=== PATIENT | male | born 1955 | race Caucasian/White ===

== ENCOUNTER → 2017-12-10 11:04 | Outpatient (CLI) | payer OTHER, SELFPAY ==
[2017-12-10 12:13] LABS: Absolute Lymphocyte Count 2.06 X10^3/ul (0.83-4.51); Absolute Neutrophil Count 5.6 X10^3/uL (2.0-7.7); Basophil# 0.02 X10^3/uL; Basophil% 0.2 % (0-1); Eosinophil# 0.02 X10^3/uL; Eosinophils% 0.2 % (0-5); Hematocrit 37.5 % (40-54); Hemoglobin 12.1 g/dl (13.0-16.5); Lymphocyte # 2.06 X10^3/ul (4.0); Lymphocyte % 23.6 % (19-41); Mean Corp Hgb Conc 32.3 g/gl (32-36); Mean Corpuscular Hgb 27.7 pg (27.0-32.0); Mean Corpuscular Volume 85.8 fL (80-94); Monocyte# 1.03 X10^3/uL; Monocyte% 11.8 % (0-10); Neutrophil # 5.57 X10^3/uL (2.7-7.7); Neutrophil % 63.7 % (47-70); Platelet Count 135 K/mm3 (150-450); RBC Distribution Width CV 14.4 % (11.6-14.6); Red Blood Count 4.37 M/mm3 (4.6-6.2); White Blood Count 8.7 K/mm3 (4.4-11.0)
[2017-12-10 12:38] LABS: POSITIVE COUNT NO; POSITIVE DIFFERENTIAL NO; POSITIVE MORPHOLOGY NO
[2017-12-10 12:56] LABS: Anion Gap 10 (5-15); BUN 11 mg/dL (7-18); BUN/Creat Ratio 15.3 RATIO (10-20); Calcium,Total 8.4 mg/dL (8.5-10.1); Chloride 102 mmol/L (98-107); Creatinine, Serum 0.72 mg/dL (0.70-1.30); EST Glomerular Filtration Rate 118 mL/min (>60); Est Glom Filt Rate - Afr Amer 143 mL/min (>60); Glucose 107 mg/dL (70-110); Potassium 3.5 mmol/L (3.5-5.1); Sodium Level 139 mmol/L (136-145)
[2017-12-10 16:57] LABS: Ferritin 116 ng/mL (26-388); Iron 47 ug/dL (65-175)
== END ==
PROVIDERS: Family Provider Family Medicine; PCP Family Medicine; Visit Provider Family Medicine
DX: I10 Essential (primary) hypertension (principal); D69.6 Thrombocytopenia, unspecified; D64.9 Anemia, unspecified
CPT/HCPCS: 36415; 80048; 82728; 83540; 85025

== ENCOUNTER → 2017-12-21 08:34 | Outpatient (CLI) | payer OTHER, SELFPAY ==
[2017-12-17 09:13] VITALS: BP 123/83; BMI 22.5
--- NOTE | 2017-12-21 09:00 | RAD_ITS ---
STUDY: X-RAY - ESOPHAGUS (BARIUM SWALLOW) WITH FLUOROSCOPY REASON FOR EXAM: Male, 62 years old. Gastroesophageal reflux. TECHNIQUE: 9 view(s) of the esophagus were obtained following swallowing of barium. FLUOROSCOPY TIME (if supplied): (0:20) minutes/seconds COMPARISON: None. FINDINGS: There is no demonstrated esophageal foreign body. There is no demonstrated stricture or mucosal abnormality. Normal gastroesophageal junction, without a demonstrated hiatal hernia. Normal visualized aortic arch and descending thoracic aorta. Normal visualized pulmonary parenchyma. Normal visualized osseous structures of the thorax. IMPRESSION: Normal plain film x-ray examination (barium swallow) of the esophagus. Electronically Signed: Russel Jean MD at 14:16 EST Tel [phone], Service support , STUDY: AIR-CONTRAST UPPER GI SERIES. REASON FOR EXAM: Male, 62 years old. Gastroesophageal reflux disease. FLUOROSCOPY TIME (if supplied): (0:20) minutes/seconds TECHNIQUE: The patient ingested barium. Multiple images of the esophagus, stomach and duodenum were obtained. COMPARISON: None. FINDINGS: The esophagus unremarkable. There is no evidence of a gastroesophageal reflux. No mass lesion is seen. The stomach and duodenum are unremarkable. There is no evidence of ulceration. No obstruction is present. RAD/Upper GI w/BA Swallow IMPRESSION: Unremarkable examination. Electronically Signed: Russel Jean MD at 14:17 EST Tel [phone], Service support ,
== END ==
PROVIDERS: Family Provider Family Medicine; PCP Family Medicine; Visit Provider Surgery
DX: R11.10 Vomiting, unspecified (principal)
CPT/HCPCS: 74246

== ENCOUNTER 2018-01-07 07:33 | Day surgery (SDC) | payer OTHER, SELFPAY ==
[2017-12-17 09:13] VITALS: BP 123/83; BMI 22.5
--- NOTE | 2018-01-07 | IMM_PTH ---
PATIENT: CHENCHO MCKEON LOC: EN U#:[id number] AGE/SX: 62/M ROOM: RE01/07/[address]: Dr. August Elliott MD : 1955 BED: DIS: 01/07/2018 SPEC #: [id number] RECD: 01/10/18 10:39 STATUS: CRISTINO REDianne #: [id number] MARISSA: 01/07/18 00:[address]: August Elliott DEPT: IMMUNOHISTOCHEMISTRY RECD BY: Effie Tovar ENTERED: 01/10/18 10:40 SP TYPE: IMMUNO OTHR DR: Dr. Mj Jorge MD Tissues: A - Stomach, NOS Procedures: H Pylori (initial) PHYSICIAN & INSTITUTION [place] [id number] SPECIMEN INFORMATION: Tissue Source: A ? Antrum biopsy Clinical Info: Regurgitation, iron deficiency anemia, history colon polyp Specimen Number: [id number] CPT code: 92890 METHODOLOGY: Deparaffinized sections of prefer/formalin-fixed tissue or PAP/DQ stained slides are incubated with monoclonal/polyclonal antibodies/oligonucleotide probes. Localization is made via biotin free immunoperoxidase method. Appropriate controls are performed and reacted as expected. Results on target cell population are indicated in the following table: RESULTS: ANTIBODY / CLONE RESULT Block A H Pylori (polyclonal) negative These tests were developed and their performance characteristics determined by [facility]. They may not have been cleared or approved by the [place]. Food and Drug Administration. The FDA has determined that such clearance or approval is not necessary. INTERPRETATION: A. Antrum, biopsy: Negative for Helicobacter pylori organisms. AM:fabian 01/10/18
[2018-01-07 08:01] VITALS: BP 128/86; PULSE 60; RESP 18; TEMP 36.1; O2SAT 100; BMI 22.3
--- NOTE | 2018-01-07 09:00 | EGD_PTH ---
PATIENT: CHENCHO MCKEON LOC: EN U#:[id number] AGE/SX: 62/M ROOM: RE01/07/[address]: Dr. August Elliott MD : 1955 BED: DIS: 01/07/2018 SPEC #: [id number] RECD: 01/07/18 11:32 STATUS: CRISTINO MAYELIN #: [id number] MARISSA: 01/07/18 09:[address]: August Elliott DEPT: SURGICAL PATHOLOGY RECD BY: Charanjit Lou ENTERED: 01/07/18 12:04 SP TYPE: EGD BIOPSY [facility] DR: Dr. Mj Jorge MD Tissues: A - Gastric mucous membrane B - Descending colon C - Sigmoid colon biopsy D - Rectum, NOS Procedures: Surgery Specimen Level IV HEADER OPERATION: EGD with biopsy, colonoscopy with polypectomy PRE-OP DIAGNOSIS: Regurgitation, iron deficiency anemia, history colon polyp TISSUE SUBMITTED: A. Antrum biopsy for H. Pylori and path, B. Descending colon polyp, C. Proximal sigmoid polyp at 35 cm, D. 20 cm rectum polyp MICROSCOPIC DIAGNOSIS A. Gastric antrum, biopsy: Gastritis. B. Descending colon polyp, biopsy: Fragments of tubular adenoma. C. Proximal sigmoid colon polyp at 35 cm, biopsy: Fragments of tubular adenoma. D. Rectal polyp at 20 cm, biopsy: Fragments of tubular adenoma. AM:fabian 01/10/18 COMMENT A. The results of immunohistochemistry for Helicobacter pylori will be reported separately ([id number]). Case has been reviewed in consultation with Dr. Allen who concurs with the above diagnosis. IDC:SJ MICROSCOPIC DESCRIPTION Slides are reviewed. A. Sections show small collections and groups of plasma cells in the mucosa. Active inflammation is not present. These findings are consistent with mild chronic gastritis. GROSS DESCRIPTION A - Received in fixative is one container labeled with the patient's name and designated antrum biopsy for H. pylori and path. The specimen consists of multiple irregular fragments of light muse soft tissue that in aggregate measure 1 x 0.2 x 0.1 cm. The specimen is totally submitted in one cassette. B - Received in fixative is one container labeled with the patient's name and designated descending colon polyp. The specimen consists of multiple fragments of muse-pink polyp that in aggregate measure 1 x 1.5 x 0.3 cm. The specimen is totally submitted in one cassette. C - Received in fixative is one container labeled with the patient's name and designated proximal sigmoid colon polyp at 35 cm. The specimen consists of two pieces of muse-pink polyp measuring 0.5 x 0.4 x 0.2 cm. The specimen is totally submitted in one cassette. D - Received in fixative is one container labeled with the patient's name and designated rectum polyp. The specimen consists of a muse-pink polyp measuring 0.8 x 0.6 x 0.5 cm. A small pedicle is noted. This is inked black. The entire specimen is submitted in one cassette. / SJ:rg 01/07/18 TC:5 CPT: 28520 x4
[2018-01-07 09:42] VITALS: BP 128/86; BP 99/60; PULSE 51; RESP 16; TEMP 36.1; O2SAT 99
[2018-01-07 09:46] VITALS: BP 128/86; BP 99/63; PULSE 47; RESP 16; O2SAT 100
--- NOTE | 2018-01-07 09:46 | OP.PCM_ITS ---
Problem List (1) Regurgitation Status: Acute (2) Iron deficiency anemia Status: Acute Qualifiers: Iron deficiency anemia type: unspecified iron deficiency Qualified Code(s) : D50.9 - Iron deficiency anemia, unspecified (3) History of colon polyps Status: Acute Report of Operation Date of Procedure: 01/07/18 Pre-Operative Diagnosis: 1. Regurgitation of food. 2. History of large colon polyp. 3. Iron deficiency anemia Post-Operative Diagnosis: 1. Small hiatal hernia. 2. Descending colon polyp. 3. Sigmoid colon polyp. 4. Proximal rectal polyp Surgery/Procedure Performed:: 1. EGD with biopsy. 2. Colonoscopy with snare polypectomy Specimen's removed: 1. Antral biopsy. 2. Descending colon biopsy. 3. Sigmoid colon polyp. 4. Rectosigmoid colon polyp Description of Procedure: The major risks and benefits associated with the procedure were explained to the patient in detail. The patient verbalized understanding and agreement with the same. The patient was then placed in the left lateral decubitus position. IV sedation was started by anesthesia. The endoscope was then advanced under direct visualization over the tongue, into the esophagus , stomach and duodenum. It was slowly withdrawn and the mucosa was carefully evaluated. Duodenal mucosal abnormalities were not visualized. Antegrade and retrograde views of the stomach were normal and did not reveal ulceration. He did have a small hiatal hernia. Gastric folds were normal. A biopsy of the antrum was performed with cold forceps. The scope was then withdrawn through the GE junction and careful examination did not demonstrate any mucosal abnormalities. No evidence of Partida's esophagus was apparent. Careful examination of the remainder of the esophagus was normal. There were no strictures or Schatzki's rings to explain his regurgitation. The scope was then withdrawn from the patient. The patient was then turned for the colonoscopy portion of the procedure. A digital rectal exam was performed. This examination was within normal limits. A well-lubricated colonoscope was then inserted into the rectum and advanced under direct visualization to the level of the cecum. The bowel prep was good. The cecum was identified by both visual and anatomic landmarks. A photograph was taken of the end of the cecum. The scope was then fully withdrawn while examining the color, texture, anatomy and integrity of the mucosa from the cecum to the anal canal. The patient had a wide sessile area of irregular mucosa in the mid descending colon. This was biopsied several times with cold snare. The patient also had a mid sigmoid polyp which was taken with cautery snare entirely and the patient also had a polyp in the rectosigmoid junction that was taken with cautery snare. Upon reaching the rectum the scope was retroflexed to examine the distal rectal vault. The scope was then straightened and was completely retrieved upon exiting the anal canal and the procedure was terminated. The patient was then transferred to the recovery room in stable condition. Recommendations for follow up: Due to the sessile area in the descending colon which was biopsied I would recommend repeat colonoscopy in one year. If this comes back is anything malignant he will need colectomy to resect this area.
[2018-01-07 09:51] VITALS: BP 128/86; BP 97/80; PULSE 47; RESP 16; O2SAT 100
[2018-01-07 09:56] VITALS: BP 115/62; BP 128/86; PULSE 48; RESP 16; TEMP 36.3; O2SAT 98
[2018-01-07 10:07] VITALS: BP 128/86
== END 2018-01-07 10:15 | disposition home or self-care (01) ==
LOC: EN 07:34 → AC 07:35
PROVIDERS: Family Provider Family Medicine; PCP Family Medicine; Visit Provider Surgery
PROC: 0DJD8ZZ Inspection of Lower Intestinal Tract, Via Natural or Artificial Opening Endoscopic (ICD-10-PCS; CPT 45378; principal; 2018-01-07 08:25)
DX: D12.4 Benign neoplasm of descending colon (principal); D12.5 Benign neoplasm of sigmoid colon; D12.7 Benign neoplasm of rectosigmoid junction; K29.70 Gastritis, unspecified, without bleeding; K44.9 Diaphragmatic hernia without obstruction or gangrene; D50.9 Iron deficiency anemia, unspecified; R11.10 Vomiting, unspecified; Z86.010 Personal history of colon polyps; F32.9 Major depressive disorder, single episode, unspecified; K21.9 Gastro-esophageal reflux disease without esophagitis; E78.00 Pure hypercholesterolemia, unspecified; E03.9 Hypothyroidism, unspecified; I10 Essential (primary) hypertension; I25.2 Old myocardial infarction; J98.8 Other specified respiratory disorders; G25.81 Restless legs syndrome; Z87.19 Personal history of other diseases of the digestive system; F12.90 Cannabis use, unspecified, uncomplicated; Z87.891 Personal history of nicotine dependence; Z95.1 Presence of aortocoronary bypass graft; Z79.82 Long term (current) use of aspirin; Z79.899 Other long term (current) drug therapy
CPT/HCPCS: 43239; 45385; 88305; 88342; J7120

== ENCOUNTER 2018-01-26 08:04 | Day surgery (SDC) | payer OTHER, SELFPAY ==
[2018-01-26 08:13] VITALS: BP 154/99; PULSE 66; RESP 18; O2SAT 100; BMI 22.5
--- NOTE | 2018-01-26 08:50 | NURSING ---
esophageal manometry completed. catheter was inserted into l.nare after anesthetized with lidocaine jelly. pt. tolerated procedure well. rn walked pt. out to surgery waiting room upon completion of test.
== END 2018-01-26 12:00 | disposition home or self-care (01) ==
LOC: EN 08:04 → AC 08:05
PROVIDERS: Family Provider Family Medicine; PCP Family Medicine; Visit Provider Surgery
PROC: F00ZJWZ Instrumental Swallowing and Oral Function Assessment using Swallowing Equipment (ICD-10-PCS; CPT 43235; principal; 2018-01-26 07:55)
DX: R11.10 Vomiting, unspecified (principal)
CPT/HCPCS: 91010

== ENCOUNTER → 2018-10-05 10:38 | Outpatient (CLI) | payer OTHER, SELFPAY ==
[2018-10-05 12:00] LABS: Absolute Lymphocyte Count 1.85 X10^3/ul (0.83-4.51); Absolute Neutrophil Count 3.3 X10^3/uL (2.0-7.7); Basophil# 0.01 X10^3/uL; Basophil% 0.2 % (0-1); Hematocrit 39.6 % (40-54); Hemoglobin 12.5 g/dl (13.0-16.5); Lymphocyte # 1.85 X10^3/ul (4.0); Lymphocyte % 30.3 % (19-41); Mean Corp Hgb Conc 31.6 g/gl (32-36); Mean Corpuscular Hgb 26.2 pg (27.0-32.0); Mean Corpuscular Volume 82.8 fL (80-94); Mean Platelet Vol. 12.6 fl (6.2-12.0); Monocyte# 0.93 X10^3/uL; Monocyte% 15.2 % (0-10); Neutrophil # 3.28 X10^3/uL (2.7-7.7); Neutrophil % 53.8 % (47-70); Platelet Count 106 K/mm3 (150-450); RBC Distribution Width CV 15.3 % (11.6-14.6); RBC Distribution Width SD 46.2 fl (35.1-43.9); Red Blood Count 4.78 M/mm3 (4.6-6.2); White Blood Count 6.1 K/mm3 (4.4-11.0)
[2018-10-05 12:01] LABS: POSITIVE COUNT NO; POSITIVE DIFFERENTIAL NO; POSITIVE MORPHOLOGY NO
[2018-10-05 12:25] LABS: Anion Gap 6 (5-15); BUN 14 mg/dL (7-18); Calcium,Total 8.8 mg/dL (8.5-10.1); Chloride 102 mmol/L (98-107); EST Glomerular Filtration Rate 122 mL/min (>60); Est Glom Filt Rate - Afr Amer 147 mL/min (>60); Ferritin 90 ng/mL (26-388); Glucose 86 mg/dL (74-106); Iron 84 ug/dL (65-175); Potassium 4.1 mmol/L (3.5-5.1); Sodium Level 139 mmol/L (136-145); T4 Free Direct 1.06 ng/dL (0.76-1.46); Thyroid Stim Hormone (TSH) 2.22 uIU/mL (0.358-3.74)
--- OUTSIDE RECORDS SUMMARY | 2018-11-30 19:05 | XMS RPT_ITS ---
:1955 Author Organization [place] Support Name Relationship Address Phone ABEBE MCKEON Unavailable [address] + [place] [address] SPENO Unavailable [address] [phone] [place] [address] ABEBE MCKEON Unavailable [address] [phone] [place] [address] SPENO Unavailable [address] [phone] [place] [address] ABEBE MCKEON Unavailable [address] [phone] [place] [address] SPENO Unavailable [address] [phone] [place] [address] ABEBE MCKEON Unavailable [address] [phone] [place] [address] SPENO Unavailable [address] [phone] [place] [address] ABEBE MCKEON Unavailable [address] [phone] [place] [address] SPENO Unavailable [address] [phone] [place] [address] ABEBE MCKEON Unavailable [address] [phone] [place] [address] SPENO Unavailable [address] [phone] [place] [address] ABEBE MCKEON Unavailable [address] [phone] [place] [address] SPENO Unavailable [address] [phone] [place] [address] ABEBE MCKEON Unavailable [address] [phone] [place] [address] SPENO Unavailable [address] [phone] [place] [address] ABEBE MCKEON Unavailable [address] [phone] [place] [address] SPHERION Unavailable [address] + [place] [address] Care Team Providers Name Role Phone Mj Jorge Attending Unavailable Ania, Mj Primary Care Unavailable Calleroy, August Attending Unavailable Mj Jorge Referring Unavailable Ania, Mj Primary Care Unavailable Calabretta, August Attending Unavailable Calabretta, August Referring Unavailable Ania, Mj Primary Care Unavailable Calabretta, August Attending Unavailable Calabretta, August Referring Unavailable Ania, Mj Primary Care Unavailable Calabretta, August Attending Unavailable Calabrnathaniel, August Referring Unavailable Ania, Mj Primary Care Unavailable Calabretta, August Consulting Unavailable Calabrnathaniel, August Attending Unavailable Calabretta, August Referring Unavailable Ania, Mj Primary Care Unavailable Calleroy, August Attending Unavailable Ania, Mj Referring Unavailable Ania, Mj Primary Care Unavailable Calleroy, August Attending Unavailable Ania, Mj Attending Unavailable Ania, Mj Primary Care Unavailable PROBLEMS PROBLEMS DATE TYPE CONDITION / CODE ATTENDING STATUS SOURCE 10/05/2018 Unknown D64.9 - Anemia, Mj Jorge Active [facility] unspecified / Community D64.9(ICD-10) Hospital Repository 10/05/2018 Unknown D69.6 - AniaMj rinaldi Active [place] Thrombocytopenia, Community unspecified / Hospital D69.6(ICD-10) Repository 10/05/2018 Unknown E03.9 - Ania, Mj Active [place] Hypothyroidism, Community unspecified / Hospital E03.9(ICD-10) Repository 10/05/2018 Unknown F41.8 - Other Ania Mj Active [facility] specified anxiety Community disorders / Hospital F41.8(ICD-10) Repository 02/14/2018 Unknown R11.10 - Vomiting, Calabretta, Active [place] unspecified / [place] Community R11.10(ICD-10) Hospital Repository 12/17/2017 Unknown Z86.010 - Personal Calabretta, Active [facility] history of colonic [facility] polyps / Hospital Z86.010(ICD-10) Repository 12/17/2017 Unknown D50.9 - Iron Lexi, Active [place] deficiency anemia, [facility] unspecified / Hospital D50.9(ICD-10) Repository 12/15/2017 Unknown I10 - Essential Mj Jorge Active [place] (primary) [facility] hypertension / Hospital I10(ICD-10) Repository PROCEDURES PROCEDURES No Procedure Records FoundRESULTS RESULTS CBC W/DIFF, AUTOMATED Collected: 10/05/2018 Status: F Source: [place] 10:39 AM [facility] REPOSITORY TYPE CODE TESTS RESULT OUT OF RANGE REFERENCE UNITS LAB L100.1000 4.4-11.0 K/mm3 Normal WBC 6.1 LAB L100.1200 4.6-6.2 M/mm3 Normal RBC 4.78 LAB L100.1300 13.0-16.5 g/dl Low HGB 12.5 LAB L100.1400 40-54 % Low HCT 39.6 LAB L100.1500 80-94 fL Normal MCV 82.8 LAB L100.1600 27.0-32.0 pg Low MCH 26.2 LAB L100.1700 32-36 g/gl Low MCHC 31.6 LAB L100.1810 11.6-14.6 % High RDW CV 15.3 LAB L100.1820 35.1-43.9 fl High RDW SD 46.2 LAB L100.1900 150-450 K/mm3 Low PLT 106 LAB L100.2000 6.2-12.0 fl High MPV 12.6 LAB L100.2100 47-70 % Normal NEUT% 53.8 LAB L100.2200 19-41 % Normal LY% 30.3 LAB L100.2300 0-10 % High MONO% 15.2 LAB L100.2400 0-5 % Normal EO% 0.0 LAB L100.2500 0-1 % Normal BASO% 0.2 LAB L100.2550 0.0-0.9 % Normal IM GRAN % 0.500 Result Comment: IG% - Immature Granulocytes (promyelocytes, myelocytes and metamyelocytes) > 1% indicates that a LEFT SHIFT is Present. LAB L100.2620 2.0-7.7 X10 3/uL Normal Absolute Neut 3.3 LAB L100.2720 0.83-4.51 X10 3/ul Normal Absolute Lymph 1.85 Performed By: #### L100.0100 #### [facility] [address] [place], [place], [id number] BASIC METABOLIC Collected: 10/05/2018 Status: F Source: [place] PROFILE (BMP) 10:39 AM [facility] REPOSITORY TYPE CODE TESTS RESULT OUT OF RANGE REFERENCE UNITS LAB L501.0100 74-106 mg/dL Normal GLU 86 Result Comment: Please note revised GLUCOSE reference range effective 2017. LAB L501.1000 7-18 mg/dL Normal BUN 14 LAB L501.1100 0.70-1.30 mg/dL Normal CREAT,SERUM 0.70 Result Comment: The validity of the calculated GFR AND GFRAA in patients over 70 years has not been determined. Clinical correlation is essential. LAB L501.1110 >60 mL/min Normal EST GFR 122 Result Comment: Non- GFR Calc LAB L501.1115 >60 mL/min Normal EST GFR - AA 147 Result Comment: GFR Calc LAB L501.1300 10-20 RATIO Normal BUN/CRE 20.0 LAB L501.2200 8.5-10.1 mg/dL CA Normal 8.8 LAB L501.5300 136-145 mmol/L NA Normal 139 LAB L501.5600 3.5-5.1 mmol/L K Normal 4.1 LAB L501.5900 98-107 mmol/L CL Normal 102 LAB L501.6100 21.0-32.0 mmol/L Normal CO2 31.0 LAB L501.6200 5-15 Normal GAP 6 Performed By: #### L500.2500, L501.9520, L503.6150, L503.6550, L506.0400 #### [facility] [address] [place], [place], [address] THYROID STIM HORMONE Collected: 10/05/2018 Status: F Source: [place] (TSH) 10:39 AM [facility] REPOSITORY TYPE CODE TESTS RESULT OUT OF RANGE REFERENCE UNITS LAB L501.9520 0.358-3.74 uIU/mL Normal TSH 2.22 Performed By: #### L500.2500, L501.9520, L503.6150, L503.6550, L506.0400 #### [facility] [address] [place], [address] IRON Collected: 10/05/2018 Status: F Source: [place] 10:39 AM [facility] REPOSITORY TYPE CODE TESTS RESULT OUT OF RANGE REFERENCE UNITS LAB L503.6150 65-175 ug/dL Normal IRON 84 Performed By: #### L500.2500, L501.9520, L503.6150, L503.6550, L506.0400 #### [facility] [address] [place], [address] FERRITIN Collected: 10/05/2018 Status: F Source: [place] 10:39 AM [facility] REPOSITORY TYPE CODE TESTS RESULT OUT OF RANGE REFERENCE UNITS LAB L503.6550 26-388 ng/mL Normal FERRITIN 90 Performed By: #### L500.2500, L501.9520, L503.6150, L503.6550, L506.0400 #### [facility] [address] [place], [address] T4 FREE DIRECT Collected: 10/05/2018 Status: F Source: [place] 10:39 AM [facility] REPOSITORY TYPE CODE TESTS RESULT OUT OF RANGE REFERENCE UNITS LAB L506.0400 0.76-1.46 ng/dL Normal T4 FREE 1.06 DIRECT Performed By: #### L500.2500, L501.9520, L503.6150, L503.6550, L506.0400 #### [facility] [address] [place], [address] SURGERY VISIT REPORT Observed: 02/01/2018 Status: F Source: [place] 10:18 AM [facility] REPOSITORY [facility] [address] [place] [address] OFFICE VISIT Date of Service: 01/31/18 MR#: [id number] Acct: [id number] Name: CHENCHO MCKEON Rep #: [id number] : 1955 Provider: August Elliott MD Age/Sex: 62/M [place] [facility] Status: Signed Intake Intake Visit Reasons: discuss manometry results Chief Complaint: MANOMETRY Cistern Room Working Supervisor Required: No Is patient in pain?: No Allergies clopidogrel bisulfate [From Plavix] Allergy (Verified 01/31/18 10:06) Itching Medications Aspirin [Aspirin, Baby] 81 mg PO DAILY@0800 02/25/15 [History Confirmed 01/31/18] Ferrous Sulfate 325 mg PO DAILY@0800 02/25/15 [History Confirmed 01/31/18] Levothyroxine Sodium [Levoxyl] 100 mcg PO DAILY 02/25/15 [History Confirmed 01/31/18] Lisinopril [Zestril] 5 mg PO DAILY 02/25/15 [History Confirmed 01/31/18] Metoprolol Tartrate [Lopressor (Beta Vitaliy)] 25 mg PO BID 02/25/15 [History Confirmed 01/31/18] Omeprazole [Prilosec] 20 mg PO DAILY 02/25/15 [History Confirmed 01/31/18] Simvastatin [Zocor] 40 mg PO QHS 02/25/15 [History Confirmed 01/31/18] PFSH Medical History Anemia (Acute) Depression (Acute) GERD (gastroesophageal reflux disease) (Acute) Hypercholesterolemia (Acute) Hypothyroid (Acute) HTN (hypertension) (Chronic) Surgical History H/O colonoscopy (Acute) H/O esophagogastroduodenoscopy (Acute) History of left inguinal hernia repair (Acute) Family History Father Diabetes Hypertension Heart disease CAD (coronary artery disease) Mother CAD (coronary artery disease) Hypertension Heart disease CVA (cerebral vascular accident) Thyroid disorder Social History Smoking Status: Former smoker alcohol intake: former substance use type: marijuana HPI HPI HPI: CHENCHO MCKEON, is a 62 M who presents to the office today for follow-up for dysphagia. The patient has not had an upper GI and an EGD and manometry. Upper GI and EGD were normal. Manometry revealed weak peristalsis. The patient is unchanged in his symptoms. ROS General General: No weight change or fatigue Cardio Cardiovascular: No murmur or pacemaker Psych Psychiatric: No depression Resp Respiratory: No shortness of breath, No sleep apnea Gastro Gastrointestinal: Yes acid reflux Additional Details: Dysphasia Exam Const General: cooperative Nutritional Appearance: average body habitus Resp Effort AND Inspection: normal respiratory effort Auscultation: clear to auscultation bilaterally Cardio Rate: regular rate Rhythm: regular rhythm Heart Sounds: no murmurs GI Inspection: non-distended Palpation: soft, nontender Assessment AND Plan Problems 1. Regurgitation R11.10 Plan 1. Patient had normal upper GI as well as normal EGD. He did have a sessile polyp in his colon which was unable to be completely removed and came back as a tubular adenoma. I am seeing him back in 3 months for repeat colonoscopy to attempt full removal. 2. The patient had manometry which shows weak peristalsis with small breaks. I am referring him to a dysphagia clinic for a second opinion to see if there are any therapeutic options. I have supplied him with a disc with the report as well as the [facility] file on it. August Elliott MD Pager: [facility] [address], [address] [place] [address] Office: Orders Referrals: Coding Level of Care Code Off vis,est,level 2 Diagnoses Regurgitation R11.10 02/01/18 1018 <Electronically signed by August Elliott MD> Date August Elliott MD Cosigner Signature: Date (if applicable) CC: Mj Jorge OPERATIVE REPORT Observed: 01/07/2018 Status: F Source: [place] 9:46 AM [facility] Medical Records Department [address] [place], [place] [address] [address] Operative Report 01/07/18 0942 MR#: [id number] Acct: [id number] Name: CHENCHO MCKEON Rep #: [id number] : 1955 62 From: August Elliott MD PCP: Mj Jorge Status: REG SDC Y Location: [place] [address] Problem List (1) Regurgitation Status: Acute (2) Iron deficiency anemia Status: Acute Qualifiers: Iron deficiency anemia type: unspecified iron deficiency Qualified Code(s): D50.9 - Iron deficiency anemia, unspecified (3) History of colon polyps Status: Acute Report of Operation Date of Procedure: 01/07/18 Pre-Operative Diagnosis: 1. Regurgitation of food. 2. History of large colon polyp. 3. Iron deficiency anemia Post-Operative Diagnosis: 1. Small hiatal hernia. 2. Descending colon polyp. 3. Sigmoid colon polyp. 4. Proximal rectal polyp Surgery/Procedure Performed:: 1. EGD with biopsy. 2. Colonoscopy with snare polypectomy Specimen's removed: 1. Antral biopsy. 2. Descending colon biopsy. 3. Sigmoid colon polyp. 4. Rectosigmoid colon polyp Description of Procedure: The major risks and benefits associated with the procedure were explained to the patient in detail. The patient verbalized understanding and agreement with the same. The patient was then placed in the left lateral decubitus position. IV sedation was started by anesthesia. The endoscope was then advanced under direct visualization over the tongue, into the esophagus, stomach and duodenum. It was slowly withdrawn and the mucosa was carefully evaluated. Duodenal mucosal abnormalities were not visualized. Antegrade and retrograde views of the stomach were normal and did not reveal ulceration. He did have a small hiatal hernia. Gastric folds were normal. A biopsy of the antrum was performed with cold forceps. The scope was then withdrawn through the GE junction and careful examination did not demonstrate any mucosal abnormalities. No evidence of Partida's esophagus was apparent. Careful examination of the remainder of the esophagus was normal. There were no strictures or Schatzki's rings to explain his regurgitation. The scope was then withdrawn from the patient. The patient was then turned for the colonoscopy portion of the procedure. A digital rectal exam was performed. This examination was within normal limits. A well- lubricated colonoscope was then inserted into the rectum and advanced under direct visualization to the level of the cecum. The bowel prep was good. The cecum was identified by both visual and anatomic landmarks. A photograph was taken of the end of the cecum. The scope was then fully withdrawn while examining the color, texture, anatomy and integrity of the mucosa from the cecum to the anal canal. The patient had a wide sessile area of irregular mucosa in the mid descending colon. This was biopsied several times with cold snare. The patient also had a mid sigmoid polyp which was taken with cautery snare entirely and the patient also had a polyp in the rectosigmoid junction that was taken with cautery snare. Upon reaching the rectum the scope was retroflexed to examine the distal rectal vault. The scope was then straightened and was completely retrieved upon exiting the anal canal and the procedure was terminated. The patient was then transferred to the recovery room in stable condition. Recommendations for follow up: Due to the sessile area in the descending colon which was biopsied I would recommend repeat colonoscopy in one year. If this comes back is anything malignant he will need colectomy to resect this area. 01/07/18 0946 <Electronically signed by August Elliott MD> Date August Elliott MD CC: August Elliott MD; Mj Jorge Signed EGD ([facility]) Observed: 01/07/2018 Status: F Source: [place] 9:00 AM [facility] REPOSITORY Patient: CHENCHO MCKEON : 1955 (62/M) Acct Num: [id number] Phys: August Elliott MD Unit Num: [id number] Loc: EN Specimen: [id number] Received: 01/07/18 1132 Spec Type: EGD BIOPSY TISSUES TISSUES: A. Gastric mucous membrane B. Descending colon C. Sigmoid colon biopsy D. Rectum, NOS COMMENT A. The results of immunohistochemistry for Helicobacter pylori will be reported separately ([id number]). Case has been reviewed in consultation with Dr. Allen who concurs with the above diagnosis. IDC:ROSS GROSS DESCRIPTION A - Received in fixative is one container labeled with the patient's name and designated antrum biopsy for H. pylori and path. The specimen consists of multiple irregular fragments of light muse soft tissue that in aggregate measure 1 x 0.2 x 0.1 cm. The specimen is totally submitted in one cassette. B - Received in fixative is one container labeled with the patient's name and designated descending colon polyp. The specimen consists of multiple fragments of muse-pink polyp that in aggregate measure 1 x 1.5 x 0.3 cm. The specimen is totally submitted in one cassette. C - Received in fixative is one container labeled with the patient's name and designated proximal sigmoid colon polyp at 35 cm. The specimen consists of two pieces of muse-pink polyp measuring 0.5 x 0.4 x 0.2 cm. The specimen is totally submitted in one cassette. D - Received in fixative is one container labeled with the patient's name and designated rectum polyp. The specimen consists of a muse- pink polyp measuring 0.8 x 0.6 x 0.5 cm. A small pedicle is noted. This is inked black. The entire specimen is submitted in one cassette. / SJ:fabian 01/07/18 TC:5 CPT: 18019 x4 HEADER OPERATION: EGD with biopsy, colonoscopy with polypectomy PRE-OP DIAGNOSIS: Regurgitation, iron deficiency anemia, history colon polyp TISSUE SUBMITTED: A. Antrum biopsy for H. Pylori and path, B. Descending colon polyp, C. Proximal sigmoid polyp at 35 cm, D. 20 cm rectum polyp MICROSCOPIC DESCRIPTION Slides are reviewed. A. Sections show small collections and groups of plasma cells in the mucosa. Active inflammation is not present. These findings are consistent with mild chronic gastritis. MICROSCOPIC DIAGNOSIS A. Gastric antrum, biopsy: Gastritis. B. Descending colon polyp, biopsy: Fragments of tubular adenoma. C. Proximal sigmoid colon polyp at 35 cm, biopsy: Fragments of tubular adenoma. D. Rectal polyp at 20 cm, biopsy: Fragments of tubular adenoma. AM:fabian 01/10/18 Signed Juan Ramon Bee 01/10/18 <signature on file> Performed By: #### PEGD #### [facility] [place] [address], [address] IMMUNOHISTOCHEMISTRY Observed: 01/07/2018 Status: F Source: [place] 12:00 AM [facility] REPOSITORY Patient: CHENCHO MCKEON : 1955 (62/M) Acct Num: [id number] Phys: Lexi BOONE,August Unit Num: [id number] Loc: EN Specimen: [id number] Received: 01/10/18 - 1039 Spec Type: IMMUNO TISSUES TISSUES: A. Stomach, NOS SPECIMEN INFORMATION: Tissue Source: A Antrum biopsy Clinical Info: Regurgitation, iron deficiency anemia, history colon polyp Specimen Number: [id number] CPT code: 92038 METHODOLOGY: Deparaffinized sections of prefer/formalin-fixed tissue or PAP/DQ stained slides are incubated with monoclonal/polyclonal antibodies/oligonucleotide probes. Localization is made via biotin free immunoperoxidase method. Appropriate controls are performed and reacted as expected. Results on target cell population are indicated in the following table: RESULTS: ANTIBODY / CLONE RESULT Block A H Pylori (polyclonal) negative These tests were developed and their performance characteristics determined by [facility]. They may not have been cleared or approved by the U.S. Food and Drug Administration. The FDA has determined that such clearance or approval is not necessary. INTERPRETATION: A. Antrum, biopsy: Negative for Helicobacter pylori organisms. AM:fabian 01/10/18 PHYSICIAN AND INSTITUTION [place] [phone] Signed Juan Ramon [facility] 01/10/18 <signature on file> Performed By: #### PIMM #### [facility] [address] [place] [address]. [place], [place], [address] UPPER GI W/BA Observed: 12/21/2017 Status: F Source: [place] SWALLOW 8:36 AM [facility] REPOSITORY [facility] Imaging Services [address] [place] [address] Upper GI w/BA Swallow MR#: [id number] Acct: [id number] Name: CHENCHO MCKEON Rep #: [id number] : 1955 M 62 From: Russel Jean MD PCP: Mj Jorge Status: REG CLI Study: Upper GI w/BA Swallow Date of Exam: 12/21/17 Exam# [id number] Ordering Dr: August Elliott MD STUDY: X-RAY - ESOPHAGUS (BARIUM SWALLOW) WITH FLUOROSCOPY REASON FOR EXAM: Male, 62 years old. Gastroesophageal reflux. TECHNIQUE: 9 view(s) of the esophagus were obtained following swallowing of barium. FLUOROSCOPY TIME (if supplied): (0:20) minutes/seconds COMPARISON: None. FINDINGS: There is no demonstrated esophageal foreign body. There is no demonstrated stricture or mucosal abnormality. Normal gastroesophageal junction, without a demonstrated hiatal hernia. Normal visualized aortic arch and descending thoracic aorta. Normal visualized pulmonary parenchyma. Normal visualized osseous structures of the thorax. IMPRESSION: Normal plain film x-ray examination (barium swallow) of the esophagus. Electronically Signed: Russel Jean MD at 14:16 EST Tel [phone], Service support , STUDY: AIR-CONTRAST UPPER GI SERIES. REASON FOR EXAM: Male, 62 years old. Gastroesophageal reflux disease. FLUOROSCOPY TIME (if supplied): (0:20) minutes/seconds TECHNIQUE: The patient ingested barium. Multiple images of the esophagus, stomach and duodenum were obtained. COMPARISON: None. FINDINGS: The esophagus unremarkable. There is no evidence of a gastroesophageal reflux. No mass lesion is seen. The stomach and duodenum are unremarkable. There is no evidence of ulceration. No obstruction is present. RAD/Upper GI w/BA Swallow IMPRESSION: Unremarkable examination. Electronically Signed: Russel Jean MD at 14:17 EST Tel [phone], Service support , CC: August Elliott MD; Mj Jorge Incident Response Consultant: Signed SURGERY VISIT REPORT Observed: 12/17/2017 Status: F Source: [place] 9:34 AM [facility] REPOSITORY [facility] [address] [place] [address] OFFICE VISIT Date of Service: 12/17/17 MR#: [id number] Acct: [id number] Name: CHENCHO MCKEON Rep #: [id number] : 1955 Provider: August Elliott MD Age/Sex: 62/M Location: [facility] Status: Signed Intake Vital Signs12/17/17 Height 5 ft 8 in 12/17/17 Weight: 148 lb 12/17/17 Body Mass Index (BMI) 22.5 Intake Visit Reasons: anemia, severe reflux, needs egd/cscope Cistern Room Working Supervisor Required: No Is patient in pain?: No Allergies clopidogrel bisulfate [From Plavix] Allergy (Verified 12/17/17 09:13) Itching Medications Aspirin [Aspirin, Baby] 81 mg PO DAILY@0800 02/25/15 [History Confirmed 12/17/17] Famotidine [Pepcid] 40 mg PO DAILY 02/25/15 [History Confirmed 12/17/17] Ferrous Sulfate 325 mg PO DAILY@0800 02/25/15 [History Confirmed 12/17/17] Levothyroxine Sodium [Levoxyl] 100 mcg PO DAILY 02/25/15 [History Confirmed 12/17/17] Lisinopril [Zestril] 5 mg PO DAILY 02/25/15 [History Confirmed 12/17/17] Metoprolol Tartrate [Lopressor (Beta Vitaliy)] 25 mg PO BID 02/25/15 [History Confirmed 12/17/17] Omeprazole [Prilosec] 20 mg PO DAILY 02/25/15 [History Confirmed 12/17/17] Simvastatin [Zocor] 40 mg PO QHS 02/25/15 [History Confirmed 12/17/17] Triamcinolone 0.025% Cream [Kenalog] 1 applic TOPICAL BID 02/25/15 [History Confirmed 12/17/17] [facility] Medical History Anemia (Acute) Depression (Acute) GERD (gastroesophageal reflux disease) (Acute) Hypercholesterolemia (Acute) Hypothyroid (Acute) HTN (hypertension) (Chronic) Surgical History H/O colonoscopy (Acute) H/O esophagogastroduodenoscopy (Acute) History of left inguinal hernia repair (Acute) Family History Father Diabetes Hypertension Heart disease CAD (coronary artery disease) Mother CAD (coronary artery disease) Hypertension Heart disease CVA (cerebral vascular accident) Thyroid disorder Social History Smoking Status: Former smoker alcohol intake: former substance use type: marijuana HPI HPI HPI: CHENCHO MCKEON, is a 62 M who presents to the office today for anemia. The patient has low iron and is anemic. He reports that he sometimes sees blood in his stool and he coughed up blood once and he thinks he sees blood in his urine. He also reports that he vomits daily. He also reports that he regurgitates undigested food. He had an EGD and colonoscopy in [address] Martinez. At that time EGD was normal and the colonoscopy yielded a 1 cm tubular adenoma at the rectosigmoid junction. Patient has not experienced any abdominal pain. He has no pain with defecation. He does take daily aspirin. ROS General General: Yes fatigue Cardio Cardiovascular: Yes heart disease, high blood pressure, heart attack and heart stent; no murmur, pacemaker, atrial fibrillation, palpitations, shortness of breat with exertion or chest pain Resp Respiratory: Yes shortness of breath, No sleep apnea, Yes cough, No COPD, No asthma, No emphysema, No wheezing Gastro Gastrointestinal: No abdominal pain, Yes nausea or vomiting, No diarrhea, Yes constipation, Yes blood in stool, Yes acid reflux, No hemorrhoids, Yes ulcers, No gallbladder problem, No black,tarry stools Tejinder Hematologic: Yes blood thinners, Yes anemia Exam Const General: cooperative, healthy appearing, comfortable Orientation: alert, oriented x3 Resp Effort AND Inspection: normal respiratory effort Auscultation: clear to auscultation bilaterally Cardio Rate: regular rate Rhythm: regular rhythm Heart Sounds: no murmurs GI Inspection: normal to inspection, non-distended Palpation: soft, nontender Assessment AND Plan 1. Iron deficiency anemia, unspecified iron deficiency anemia type D50.9 Plan 1. The patient is having iron deficiency anemia. I will perform an EGD for him. He does take daily aspirin he has a history of ulcer disease. He also reports she is vomiting daily. 2. History of colon polyps Z86.010 Plan 1. The patient had a tubular adenoma which was over 1 cm in 2015. He is due for colonoscopy 3 years after that. That would be this year. I will perform a colonoscopy at the same time as the EGD. 2. I explained endoscopy in detail to the patient. I explained the risks including but not limited to stroke or heart attack with anesthesia, perforation of the GI tract, bleeding, infection. I explained that any of these could necessitate further emergency surgery. The patient understands and all questions were answered sufficiently. The patient wishes to proceed with procedure. Orders Orders: 3. Regurgitation R11.10 Plan 1. Patient also reports that he is regurgitating undigested food. He reports that this happens when he clears his throat. There is a possibility that the patient has a Zenker's diverticulum. I will also order an upper GI with barium swallow before I do an EGD. August Elliott MD Pager: [facility] [address], [address] [address] Office: Orders Orders: Plan Detail Other Orders Orders: Coding Level of Care Code Off vis,new,level 3 Diagnoses Iron deficiency anemia, unspecified iron deficiency anemia type D50.9 Anemia type: iron deficiency Iron deficiency anemia type: unspecified iron deficiency History of colon polyps Z86.010 Regurgitation R11.10 12/17/17 0934 <Electronically signed by August Elliott MD> Date August Elliott MD Cosigner Signature: Date (if applicable) CC: Mj Jorge CBC W/DIFF, AUTOMATED Collected: 12/10/2017 Status: F Source: FRANK 11:09 AM [facility] REPOSITORY TYPE CODE TESTS RESULT OUT OF RANGE REFERENCE UNITS LAB L100.1000 4.4-11.0 K/mm3 Normal WBC 8.7 LAB L100.1200 4.6-6.2 M/mm3 Low RBC 4.37 LAB L100.1300 13.0-16.5 g/dl Low HGB 12.1 LAB L100.1400 40-54 % Low HCT 37.5 LAB L100.1500 80-94 fL Normal MCV 85.8 LAB L100.1600 27.0-32.0 pg Normal MCH 27.7 LAB L100.1700 32-36 g/gl Normal MCHC 32.3 LAB L100.1810 11.6-14.6 % Normal RDW CV 14.4 LAB L100.1820 35.1-43.9 fl High RDW SD 44.0 LAB L100.1900 150-450 K/mm3 Low PLT 135 LAB L100.2000 6.2-12.0 fl Normal MPV 12.0 LAB L100.2100 47-70 % Normal NEUT% 63.7 LAB L100.2200 19-41 % Normal LY% 23.6 LAB L100.2300 0-10 % High MONO% 11.8 LAB L100.2400 0-5 % Normal EO% 0.2 LAB L100.2500 0-1 % Normal BASO% 0.2 LAB L100.2550 0.0-0.9 % Normal IM GRAN % 0.500 Result Comment: IG% - Immature Granulocytes (promyelocytes, myelocytes and metamyelocytes) > 1% indicates that a LEFT SHIFT is Present. LAB L100.2620 2.0-7.7 X10 3/uL Normal Absolute Neut 5.6 LAB L100.2720 0.83-4.51 X10 3/ul Normal Absolute Lymph 2.06 Performed By: #### L100.0100 #### [facility] [address] [place], [address] BASIC METABOLIC Collected: 12/10/2017 Status: F Source: FRANK PROFILE (BMP) 11:09 AM [facility] REPOSITORY TYPE CODE TESTS RESULT OUT OF RANGE REFERENCE UNITS LAB L501.0100 70-110 mg/dL Normal GLU 107 LAB L501.1000 7-18 mg/dL Normal BUN 11 LAB L501.1100 0.70-1.30 mg/dL Normal 0.72 CREAT,SERUM Result Comment: The validity of the calculated GFR AND GFRAA in patients over 70 years has not been determined. Clinical correlation is essential. LAB L501.1110 >60 mL/min Normal EST GFR 118 Result Comment: Non- GFR Calc LAB L501.1115 >60 mL/min Normal EST GFR - AA 143 Result Comment: GFR Calc LAB L501.1300 10-20 RATIO Normal BUN/CRE 15.3 LAB L501.2200 8.5-10.1 mg/dL Low CA 8.4 LAB L501.5300 136-145 mmol/L NA Normal 139 LAB L501.5600 3.5-5.1 mmol/L K Normal 3.5 LAB L501.5900 98-107 mmol/L CL Normal 102 LAB L501.6100 21.0-32.0 mmol/L Normal CO2 27.0 LAB L501.6200 5-15 Normal GAP 10 Performed By: #### L500.2500, L503.6150, L503.6550 #### [facility] [address] [facility]. [facility] [id number] IRON Collected: 12/10/2017 Status: F Source: ALAMOGORDO 11:09 AM [facility] REPOSITORY TYPE CODE TESTS RESULT OUT OF RANGE REFERENCE UNITS LAB L503.6150 65-175 ug/dL Low IRON 47 Performed By: #### L500.2500, L503.6150, L503.6550 #### [facility] [address] [facility] [address] FERRITIN Collected: 12/10/2017 Status: F Source: [place] 11:09 AM [facility] REPOSITORY TYPE CODE TESTS RESULT OUT OF RANGE REFERENCE UNITS LAB L503.6550 26-388 ng/mL Normal FERRITIN 116 Performed By: #### L500.2500, L503.6150, L503.6550 #### [facility] [address] [facility]. [facility] [address] ALLERGIES ALLERGIES DATE TYPE / CODE NAME / CODE REACTION SEVERITY SOURCE 01/31/2018 Drug clopidogrel Itching Unknown [place] Allergy/416 bisulfate/[id number] [facility] [id number]([facility](RXNORM) [facility]) Repository ENCOUNTERS ENCOUNTERS ADMIT/DISCHARGE ACCOUNT ADMITTING ENCOUNTER LOCATION SOURCE NUMBER CLASS 10/05/2018 [id number] Ambulatory [place] 6 [facility] ing:BFHLAB Repository 01/31/2018/ [id number] Ambulatory BMSBuilding:B [place] 8 9 [place] Repository 01/26/2018/ [id number] Ambulatory [place] 8 0 [facility] ing:ENRoom: Repository AC11 01/26/2018 [id number] Ambulatory BMSBuilding:B [place] 4 MS.CF.[facility] Repository 01/07/2018/ [id number] Ambulatory [place] 8 2 [facility] ing:EN Repository 01/07/2018 [id number] Ambulatory BMSBuilding:B [place] 7 [place].CF.[facility] Repository 12/21/2017 [id number] Ambulatory [place] Frank 3 [facility] ing:RAD Repository 12/17/2017/ [id number] Ambulatory BMSBuilding:B [place] 8 6 [place].[facility] Repository 12/10/2017 [id number] Ambulatory [place] 4 [facility] ing:BFHLAB Repository PAYERS PAYERS ENCOUNTER GUARANTOR PAYER SUBSCRIBER SOURCE 10/05/2018 CHENCHO A Primary CHENCHO A [place] [id number] Insurance[facility] Number: [id number] [facility] [address] [id number] Repository [address]Kss: 234) Date:3840-21-61OC [phone] (GY) [place] [address]VZ: 10/05/2018 Secondary NOT GIVENUNK Frank Insurance:SELF PAY [facility] Number: Effective Repository Date:2018-10-05 01/31/2018 CHENCHO A Primary CHENCHO A [place] [id number] Insurance:SUMMA GARTINDOB: [facility] CAREPolicy Number: [id number] [id number] Repository [address]Tys: (234) Date:3746-21-04QY [phone] (HP) [place] [address]CU: 01/31/2018 Secondary NOT GIVENUNK Frank Insurance:SELF PAY [facility] Number: Effective Repository Date:2018-01-31 01/26/2018 CHENCHO A Primary CHENCHO A [place] [id number] Insurance:SUMMA GARTINDOB[facility] Number: [id number] [id number] Repository [address]Ont: (234) Date:4758-40-15JS [phone] (HP) [place] [address]MC: 01/26/2018 Secondary NOT GIVENUNK Frank Insurance:SELF PAY [facility] Number: Effective Repository Date:2018-01-07 01/26/2018 CHENCHO A Primary CHENCHO A [place] [id number] Insurance:SUMMA GARTINDOB: [facility] Number: [id number] [id number] Repository [address]Gvs: (234) Date:4842-61-82YD [phone] (HP) [place] [address]PS: 01/26/2018 Secondary NOT GIVENUNK [place] Insurance:SELF PAY [facility] Number: Effective Repository Date:2018-01-26 01/07/2018 CHENCHO A Primary CHENCHO A [place] [id number] Insurance:SUMMA GARTINDOB: [facility] Number: [id number] [id number] Repository [address]Hzm: (234) Date:4913-15-90OY [phone] (HP) [address], [place] [address]VB: 01/07/2018 Secondary NOT GIVENUNK [place] Insurance:SELF PAY [facility] Number: Effective Repository Date:2017-12-17 01/07/2018 CHENCHO Gallagher Primary CHENCHO [id number] Insurance:SUMMA GARTINDOB: [facility] CAREPolicy Number: [id number] [id number] Repository [address]Dut: (234) Date:8772-71-82OU [phone] (HP) [address] [place] [address]AG: 01/07/2018 Secondary NOT GIVENUNK Frank Insurance:SELF PAY [facility] Effective Repository Date:2018-01-07 12/21/2017 CHENCHO LUGO4 Primary CHENCHO Marie [facility] Insurance:SUMMA GARTINDOB: Community [address] [place] [address] CAREPolicy Number: [id number] Hospital [address]Nzr: [id number] Repository Date:0478-31-91AL [address] (HP) [address] [address]IV: 12/21/2017 Secondary NOT GIVENUNK Frank Insurance:SELF PAY [facility] Number: Effective Repository Date:2017-12-17 12/17/2017 CHENCHO [id number] Primary CHENCHOMAT Marie [facility] Insurance:SUMMA GARTINDOB: Community [address] [place] [address] CAREPolicy Number: [id number] Hospital [address]Fti: [id number] Repository Date:7350-70-87WY [address]OX (HP) [address], [place] [address]YW: 12/17/2017 Secondary NOT GIVENUNK Frank Insurance:SELF PAY [facility] Number: Effective Repository Date:2017-12-13 12/10/2017 CHENCHO [id number] Primary CHENCHO Marie [facility] Insurance:CROW CABALLERO: [address] Number: [id number] Hospital [address]Hmc: [id number] Repository Date:8845-76-09MR BOX (JF) [address] [address]PV: 12/10/2017 [facility]SELF PAY [facility] Number: Effective Repository Date:2017-12-10
== END ==
PROVIDERS: Family Provider Family Medicine; PCP Family Medicine; Visit Provider Family Medicine
DX: D64.9 Anemia, unspecified (principal); D69.6 Thrombocytopenia, unspecified; E03.9 Hypothyroidism, unspecified; F41.8 Other specified anxiety disorders
CPT/HCPCS: 36415; 80048; 82728; 83540; 84439; 84443; 85025

== ENCOUNTER → 2019-03-29 | Outpatient (CLI) | payer OTHER, SELFPAY ==
[2019-03-29 12:43] LABS: Absolute Lymphocyte Count 1.83 X10^3/ul (0.83-4.51); Basophil# 0.01 X10^3/uL; Basophil% 0.2 % (0-1); Eosinophil# 0.01 X10^3/uL; Eosinophils% 0.2 % (0-5); Hematocrit 39.4 % (40-54); Hemoglobin 12.4 g/dl (13.0-16.5); Lymphocyte # 1.83 X10^3/ul (4.0); Lymphocyte % 45.2 % (19-41); Mean Corp Hgb Conc 31.5 g/gl (32-36); Mean Corpuscular Hgb 25.4 pg (27.0-32.0); Mean Corpuscular Volume 80.7 fL (80-94); Mean Platelet Vol. 13.2 fl (6.2-12.0); Monocyte# 1.18 X10^3/uL; Monocyte% 29.1 % (0-10); Neutrophil # 0.98 X10^3/uL (2.7-7.7); Neutrophil % 24.3 % (47-70); Platelet Count 101 K/mm3 (150-450); RBC Distribution Width CV 15.3 % (11.6-14.6); Red Blood Count 4.88 M/mm3 (4.6-6.2); White Blood Count 4.1 K/mm3 (4.4-11.0)
[2019-03-29 12:50] LABS: Differential Indicated SCAN CRITERIA MET; POSITIVE COUNT NO; POSITIVE DIFFERENTIAL YES; POSITIVE MORPHOLOGY NO
[2019-03-29 13:20] LABS: Platelet Estimate ADEQUATE (ADEQ); Red Cell Morphology NORM C+C NORMAL (NORM C&C)
== END | disposition home or self-care (01) ==
LOC: LAB.FUTURE 11:39
PROVIDERS: Family Provider Family Medicine; PCP Family Medicine; Visit Provider Family Medicine
DX: D69.6 Thrombocytopenia, unspecified (principal)
CPT/HCPCS: 36415; 85025

== ENCOUNTER → 2019-04-04 | Outpatient (CLI) | payer OTHER, SELFPAY ==
[2019-04-04 12:46] LABS: Absolute Lymphocyte Count 1.71 X10^3/ul (0.83-4.51); Basophil# 0.01 X10^3/uL; Basophil% 0.3 % (0-1); Eosinophil# 0.01 X10^3/uL; Eosinophils% 0.3 % (0-5); Hematocrit 41.1 % (40-54); Hemoglobin 13.1 g/dl (13.0-16.5); Lymphocyte # 1.71 X10^3/ul (4.0); Lymphocyte % 43.2 % (19-41); Mean Corp Hgb Conc 31.9 g/gl (32-36); Mean Corpuscular Hgb 26.1 pg (27.0-32.0); Mean Corpuscular Volume 81.9 fL (80-94); Monocyte# 1.18 X10^3/uL; Monocyte% 29.8 % (0-10); Neutrophil # 1.03 X10^3/uL (2.7-7.7); Neutrophil % 25.9 % (47-70); Platelet Count 86 K/mm3 (150-450); RBC Distribution Width CV 15.5 % (11.6-14.6); RBC Distribution Width SD 45.9 fl (35.1-43.9); Red Blood Count 5.02 M/mm3 (4.6-6.2)
[2019-04-04 12:48] LABS: Differential Indicated SCAN CRITERIA MET; POSITIVE COUNT NO; POSITIVE DIFFERENTIAL NO; POSITIVE MORPHOLOGY YES
[2019-04-04 12:55] LABS: Vitamin B12 669 pg/mL (211-911)
[2019-04-04 13:05] LABS: ALB/GLOB Ratio 0.9 RATIO (0.9-2.4); AST(SGOT) 26 U/L (15-37); Alanine Aminotransfer ALT/SGPT 23 U/L (16-61); Albumin, Serum 3.5 g/dL (3.2-5.0); Alkaline Phosphatase 115 U/L (45-117); Anion Gap 9 (5-15); BUN 6 mg/dL (7-18); BUN/Creat Ratio 7.9 RATIO (10-20); Calcium,Total 8.4 mg/dL (8.5-10.1); Chloride 104 mmol/L (98-107); Creatinine, Serum 0.76 mg/dL (0.70-1.30); EST Glomerular Filtration Rate 111 mL/min (>60); Est Glom Filt Rate - Afr Amer 134 mL/min (>60); Ferritin 76 ng/mL (26-388); Globulin 4.1 g/dL (2.2-4.2); Glucose 110 mg/dL (74-106); Iron 52 ug/dL (65-175); Potassium 4.3 mmol/L (3.5-5.1); Protein, Total 7.6 g/dL (6.4-8.2); Sodium Level 141 mmol/L (136-145); Thyroid Stim Hormone (TSH) 0.48 uIU/mL (0.358-3.74)
== END | disposition home or self-care (01) ==
LOC: LAB.FUTURE 10:02
PROVIDERS: Family Provider Family Medicine; PCP Family Medicine; Visit Provider Family Medicine
DX: D69.6 Thrombocytopenia, unspecified (principal); E03.9 Hypothyroidism, unspecified; D64.9 Anemia, unspecified; I10 Essential (primary) hypertension
CPT/HCPCS: 36415; 80053; 82607; 82728; 82746; 83540; 84443; 85025

== ENCOUNTER → 2019-04-25 | Outpatient (CLI) | payer OTHER, SELFPAY ==
[2019-04-13 11:13] VITALS: BMI 22.1
[2019-04-25] VITALS (10 sets, daily range): BP systolic 105–140; BP diastolic 53–79; PULSE 46–53; RESP 14–22; TEMP 36.4; O2SAT 95–100; BMI 22.8
--- NOTE | 2019-04-25 | BMB_PTH ---
PATIENT: CHENCHO MCKEON LOC: [place] U#:[id number] AGE/SX: 63/M ROOM: RE04/25/[address]: Dr. Yeny Doe MD : 1955 BED: DIS: 04/25/2019 SPEC #: [id number] RECD: 04/25/19 09:59 STATUS: CRISTINO MAYELIN #: [id number] MARISSA: 04/25/19 00:[address]: Yeny Doe DEPT: BONE MARROW RECD BY: Charanjit Lou ENTERED: 04/25/19 10:00 SP TYPE: BMB KARL DR: Dr. Mj Jorge MD Tissues: A - Bone marrow, NOS B - Bone marrow, NOS C - Bone marrow, NOS Procedures: Decalcification bone/plaque Bone Marrow Aspiration Bone Marrow Core Biopsy Iron Stain Bone Marrow HEADER OPERATION: Bone marrow biopsy and aspiration PRE-OP DIAGNOSIS: Thrombocytopenia TISSUE SUBMITTED: A - Core, B - Clot, C - Smears, and send outs (flow, cytogenetics and FISH MDS) BONE MARROW DIAGNOSIS Left hip bone marrow biopsy, clot section and aspirate smears: Hypercellular bone marrow with trilineage hematopoiesis with maturation, mild left shift and adequate megakaryocytes. Adequae marrow storage iron - 2-3+, no ring sideroblasts identified. Peripheral blood - moderate thrombocytopenia and mild normocytic anemia. Flow cytometry study from [facility] shows left-shifted granulopoiesis with 2% myeloblasts with an aberrant phenotype. The complete report is viewable in patient's EMR. Cytogenetic and MDS FISH panel studies are pending. FA:fabian 05/01/19 COMMENT Clinical correlation with pending cytogenetic and MDS Fish panel studies is suggested. Case has been reviewed in consultation with Dr. Lafleur who concurs with the above diagnosis. IDC:CE BONE MARROW STUDY Slides are reviewed. CBC DATE: 04/25/19 WBC 5.2; RBC 4.6; HGB 11.9; HCT 17.8; MCV 81.3; MCH 25.6, MCHC 31.5, RDW 15.1; PLTS 94 SEGS 28.2%; LYMPHS 39.7%; MONOS 30.9%; EOS 0.2%; BASOS 0.4% PERIPHERAL SMEAR: Submitted. RBC: Mild normocytic, hypochromic anemia. WBC: Unremarkable. The WBC count is compatible to as reported above. PLTS: Decreased. BONE MARROW ASPIRATE DIFFERENTIAL: 200 cell count. Blasts % (normal 0-2): 2 Promyelocytes % (normal 1-5): 2 Myelocytes and metamyelocytes % (normal 17-41): 30 Bands and Segs % (normal 15-32): 22 Eos % (normal 1-6): 2 Basos % (normal 0-1): 0 Monocytes % (normal 0-4): 4 Erythroid Precursors % (normal 17-35):17 Lymphocytes % (normal 7-13): 10 Plasma Cells % (normal 0-2): 1 ASPIRATE FINDINGS: Site: Left hip Hypercellular M/E ratio: 4.0 (Normal 1.5-4.0) Megakaryocytes: Present and a few hypolobated forms are identified. Erythropoiesis: Normoblastic. Few rare forms with irregular nuclear contours are noted. Granulopoiesis: Progressive with mild left shift. Comment: No significant dysplastic changes are identified. CORE BIOPSY FINDINGS: Site: Left hip Adequacy: Adequate Cellularity: 90% M/E ratio: Mild WBC left shift. Megakaryocytes: Present and adequate in number. Bony trabeculae: Unremarkable. Granulomas: Absent. Lymphoid aggregate: Absent. Atypical infiltrate: Absent. Comment: ASPIRATE CLOT FINDINGS: Site: Left hip Marrow particles: A few present. Cellularity: 60-70% M/E ratio: Mild granulocytic hyperplasia. Megakaryocytes: Present and adequate in number. Granulomas: Absent. Lymphoid aggregates: A few present. Atypical infiltrates: Absent. Comment: Small lymphoid aggregate are identified and are favored to be reactive. SPECIAL STAINS WITH MATCHED CONTROLS: Iron: 3+. No ring sideroblasts identified. Reticulin: No significant increase in reticulin fibers. PAS: Highlights myeloid cells and megakaryocytes. BONE MARROW GROSS A - Received is a container labeled with the patient's name and designated left hip. The specimen consists of one elongated piece of bone measuring 1 cm in length and 0.2 cm in diameter. The specimen is totally submitted in one cassette after decalcification. B - Received labeled with the patient's name and designated left hip is a specimen that consists of multiple blood clots. The specimen is entirely submitted for cell block preparation. C - Also received are 16 unstained and 1 peripheral stained slides. The unstained slides are submitted for appropriate staining. Also received is one green top tube which is sent to our reference lab for flow, cytogenetics and FISH MDS. / SJ:rg 04/25/19 TC:4 CPT: 90443, 82809, 06940 x2, 79274 x3, 96378 ADDENDUM ADDENDUM ADDENDUM ADDENDUM ADDENDUM ADDENDUM ADDENDUM ADDENDUM ADDENDUM ADDENDUM ADDENDUM 05/18/2019 12:09 ADDENDUM 05/18/2019 12:09 ADDENDUM 05/18/2019 12:09 ADDENDUM 05/18/2019 12:09 ADDENDUM 05/18/2019 12:09 REPORTS FROM [facility] CYTOGENETIC RESULT: 46,XY[20] INTERPRETATION: Normal male karyotype was observed in twenty metaphases analyzed. MDS FISH PANEL FISH RESULT: Normal MDS Panel Please see complete report in e-chart or EMR for further details
--- NOTE | 2019-04-25 08:04 | CT_ITS ---
PROCEDURE: CT GUIDED BONE marrow biopsy of the posterior left iliac bone. DATE: April 25, 2019. INDICATION: Male, 63 years old. Thrombocytopenia. PHYSICIAN: Russel Jean M.D. RADIATION DOSAGE (If Supplied By Facility): CTDIvol = ( 15.5 ) mGy, DLP = ( 309.19 ) mGycm PROCEDURE: The risks, benefits, and alternatives to the procedure were explained to the patient. The specific risk of hemorrhage requiring further treatment or intervention was detailed and accepted. Follow-up instructions were discussed with the patient as well. Written informed consent was obtained. The patient was brought into the CT suite and placed in the prone position. . An appropriate entry site was identified. The overlying skin was prepped and draped in the usual sterile fashion. 1% lidocaine was administered subcutaneously for local anesthesia. Conscious sedation was performed. The patient received 2 mg of Versed and 50 mcg of fentanyl intravenously. Conscious sedation was started at 9:05 AM and terminated at 9:29 AM. The patient was independently monitored by the department nurse. Under CT guidance, bone marrow aspirates and bone marrow biopsy were performed. The specimens were then placed in the appropriate fluid in transported to the laboratory for analysis. Hemostasis was obtained. The patient tolerated the procedure well without immediate complications. CT/Biopsy/Inj or Needle Placement IMPRESSION: Successful CT guided bone marrow biopsy and bone marrow aspirate of the posterior left iliac bone, as described above. The patient tolerated the procedure well. Electronically Signed: Russel Jean, at 10:26 EDT , Service support ,
[2019-04-25 08:20] LABS: Absolute Lymphocyte Count 2.07 X10^3/ul (0.83-4.51); Absolute Neutrophil Count 1.5 X10^3/uL (2.0-7.7); Basophil# 0.02 X10^3/uL; Basophil% 0.4 % (0-1); Eosinophil# 0.01 X10^3/uL; Eosinophils% 0.2 % (0-5); Hematocrit 37.8 % (40-54); Hemoglobin 11.9 g/dl (13.0-16.5); Lymphocyte # 2.07 X10^3/ul (4.0); Lymphocyte % 39.7 % (19-41); Mean Corp Hgb Conc 31.5 g/gl (32-36); Mean Corpuscular Hgb 25.6 pg (27.0-32.0); Mean Corpuscular Volume 81.3 fL (80-94); Monocyte# 1.61 X10^3/uL; Monocyte% 30.9 % (0-10); Neutrophil # 1.47 X10^3/uL (2.7-7.7); Neutrophil % 28.2 % (47-70); Platelet Count 94 K/mm3 (150-450); RBC Distribution Width CV 15.1 % (11.6-14.6); RBC Distribution Width SD 44.1 fl (35.1-43.9); Red Blood Count 4.65 M/mm3 (4.6-6.2); White Blood Count 5.2 K/mm3 (4.4-11.0)
[2019-04-25 08:21] LABS: Differential Indicated SCAN CRITERIA MET; POSITIVE COUNT NO; POSITIVE DIFFERENTIAL YES; POSITIVE MORPHOLOGY YES
[2019-04-25 08:24] LABS: International Normalized Ratio 1.1; Partial Thromboplast Time 33.7 Seconds (24.1-36.2); Prothrombin Time (Protime)PT. 14.1 SECONDS (11.7-14.9)
[2019-04-25] MEDS: Midazolam 2 MG/2 ML Syringe IV (09:05)
[2019-04-25] MEDS: fentaNYL 100 MCG/2 ML Ampul IV (09:07)
== END | disposition home or self-care (01) ==
PROVIDERS: Family Provider Family Medicine; PCP Family Medicine; Referring Provider Internal Medicine Hematology & Oncology; Visit Provider Internal Medicine Hematology & Oncology
DX: D69.6 Thrombocytopenia, unspecified (principal)
CPT/HCPCS: 38221; 36415; 77012; 85025; 85610; 85730; 88305; 88311; 88313; 99156; 99157; J7040; A4216

== ENCOUNTER → 2019-05-16 | Outpatient (CLI) | payer OTHER, SELFPAY ==
[2019-04-13 11:13] VITALS: BMI 22.1
[2019-05-16 13:29] VITALS: BMI 21.8
--- NOTE | 2019-05-16 13:58 | CT_ITS ---
STUDY: LOW DOSE CT LUNG CANCER SCREENING REASON FOR EXAM: Male, 63 years old. 80 pack-year history of smoking. RADIATION DOSAGE (If Supplied By Facility): CTDIvol = ( 2.01 ) mGy, DLP = ( 72.48 ) mGycm TECHNIQUE: No contrast was administered. Low dose technique was utilized (average mAS-38 and kVp 120). 1.25 mm axial source images with a slice interval of 1.25-mm were reconstructed in lung windows. 2.5 mm axial source images with a slice interval of 2.5-mm were reconstructed in lung windows. 5.0 mm axial source images with a slice interval of 5.0-mm were reconstructed in soft tissue windows. Nodule measured using lung windows on PACS and/or independent workstation with automated measurement of minimum and maximum diameter. Nodule measurement reported as average diameter rounded to the nearest whole number. Growth is defined as an increase ins size of greater than 1.5 mm. COMPARISON: None. NODULES: No suspicious nodules are seen. Emphysema: Hyperinflation. Mild degree of emphysematous changes. Findings suggestive of scarring at the lung apices with bullous formation. Endobronchial lesion: Aorta: Atherosclerotic calcification of the aortic arch. Coronary arteries: Coronary artery calcification. Heart: Prior CABG. Mediastinal nodes: Several mediastinal lymph nodes measuring less than 1.5 cm. Other chest and abdominal findings: CT/Low Dose CT Lung Screening IMPRESSION: Lung-RADS category 2 - Continue annual screening with LDCT in 12 months. IMPORTANT NOTES FOR USE: ACR Lung-RADS Version 1.0 Assessment Categories Release Date: March 05, 2014 Category: Coded 0-4 bases on nodule(s) with highest degree of suspicion. Negative screen is defined as categories 1 and 2; a positive screen is defined as categories 3 and 4. Category 3 and 4A nodules that are unchanged on interval CT should be coded as category 2, and individuals returned to screening in 12 months. Category 4X: Category 3 or 4 nodules with additional imaging findings that increase the suspicion of lung cancer, such as spiculation, GGN that doubles in size in 1 year, enlarged lymph notes, etc. Category Modifiers: S (significant finding unrelated to lung cancer) and C (prior history of treated lung cancer) may be added to the 0-4 Lung-RADS Electronically Signed: Russel Jean, at 14:49 EDT , Service support ,
== END | disposition home or self-care (01) ==
LOC: CT 13:57
PROVIDERS: Family Provider Family Medicine; PCP Family Medicine; Referring Provider Nurse Practitioner Family; Visit Provider Nurse Practitioner Family
DX: Z12.2 Encounter for screening for malignant neoplasm of respiratory organs (principal); Z87.891 Personal history of nicotine dependence
CPT/HCPCS: G0297

== ENCOUNTER → 2020-06-04 | Outpatient (CLI) | payer OTHER, SELFPAY ==
[2019-11-22 11:02] VITALS: BMI 22.1
[2020-06-04 12:35] VITALS: BMI 21.7
--- NOTE | 2020-06-04 12:59 | CT_ITS ---
STUDY: LOW DOSE CT LUNG CANCER SCREENING REASON FOR EXAM: Male, 64 years old. TOBACCO USE 1 1/2 PPD X 45 YRS. QUIT IN 2007 RADIATION DOSAGE (If Supplied By Facility): CTDIvol = ( 1.70 ) mGy, DLP = ( 57.85 ) mGycm TECHNIQUE: No contrast was administered. Low dose technique was utilized (average mAS-38 and kVp 120). 1.25 mm axial source images with a slice interval of 1.25-mm were reconstructed in lung windows. 2.5 mm axial source images with a slice interval of 2.5-mm were reconstructed in lung windows. 5.0 mm axial source images with a slice interval of 5.0-mm were reconstructed in soft tissue windows. Nodule measured using lung windows on PACS and/or independent workstation with automated measurement of minimum and maximum diameter. Nodule measurement reported as average diameter rounded to the nearest whole number. Growth is defined as an increase ins size of greater than 1.5 mm. COMPARISON: Comparison is made with prior examination dated 05-16-19. NODULES: No suspicious nodules are seen. Emphysema: Diffuse emphysematous changes. Stable scarring at the lung apices. Endobronchial lesion: None Aorta: Atherosclerotic calcification of the aortic arch and descending thoracic aorta. Coronary arteries: Prior CABG. Coronary artery calcification. Heart: Not enlarged Pulmonary artery: Unremarkable. Mediastinal nodes: Small mediastinal lymph nodes. Other chest and abdominal findings: Degenerative changes of the dorsal spine. CT/Low Dose CT Lung Screening IMPRESSION: Lung-RADS category 2 - Continue annual screening with LDCT in 12 months. IMPORTANT NOTES FOR USE: ACR Lung-RADS Version 1.0 Assessment Categories Release Date: March 05, 2014 Category: Coded 0-4 bases on nodule(s) with highest degree of suspicion. Negative screen is defined as categories 1 and 2; a positive screen is defined as categories 3 and 4. Category 3 and 4A nodules that are unchanged on interval CT should be coded as category 2, and individuals returned to screening in 12 months. Category 4X: Category 3 or 4 nodules with additional imaging findings that increase the suspicion of lung cancer, such as spiculation, GGN that doubles in size in 1 year, enlarged lymph notes, etc. Category Modifiers: S (significant finding unrelated to lung cancer) and C (prior history of treated lung cancer) may be added to the 0-4 Lung-RADS Electronically Signed: Russel Jean, at 13:55 EDT , Service support ,
== END | disposition home or self-care (01) ==
LOC: CT 12:59
PROVIDERS: PCP Family Medicine; Referring Provider Nurse Practitioner Family; Visit Provider Nurse Practitioner Family
DX: Z87.891 Personal history of nicotine dependence (principal); Z12.2 Encounter for screening for malignant neoplasm of respiratory organs
CPT/HCPCS: G0297

== ENCOUNTER → 2020-12-16 09:22 | Outpatient (CLI) | payer OTHER, SELFPAY ==
[2020-06-04 12:35] VITALS: BMI 21.7
[2020-12-16 12:10] LABS: Absolute Lymphocyte Count 1.84 X10^3/uL (0.83-4.51); Absolute Neutrophil Count 1.5 X10^3/uL (2.0-7.7); Basophil# 0.03 X10^3/uL; Basophil% 0.7 % (0-1); Hematocrit 42.9 % (40-54); Hemoglobin 13.4 g/dL (13.0-16.5); Lymphocyte # 1.84 X10^3/ul (4.0); Lymphocyte % 42.1 % (19-41); Mean Corp Hgb Conc 31.2 g/dL (32-36); Mean Corpuscular Hgb 26.4 pg (27.0-32.0); Mean Corpuscular Volume 84.4 fL (80-94); Monocyte# 0.84 X10^3/uL; Monocyte% 19.2 % (0-10); NRBC Flagged by Analyzer 0 % (0-5); Neutrophil # 1.51 X10^3/uL (2.7-7.7); Neutrophil % 34.6 % (47-70); POSITIVE COUNT YES; POSITIVE MORPHOLOGY YES; Platelet Count 61 K/mm3 (150-450); RBC Distribution Width CV 15.6 % (11.6-14.6); RBC Distribution Width SD 47.4 fl (35.1-43.9); Red Blood Count 5.08 M/mm3 (4.6-6.2); White Blood Count 4.4 K/mm3 (4.4-11.0)
[2020-12-16 12:20] LABS: Differential Indicated SCAN CRITERIA MET
[2020-12-16 12:28] LABS: ALB/GLOB Ratio 0.8 RATIO (0.9-2.4); AST(SGOT) 26 U/L (15-37); Alanine Aminotransfer ALT/SGPT 32 U/L (16-61); Albumin, Serum 3.6 g/dL (3.2-5.0); Alkaline Phosphatase 103 U/L (45-117); Anion Gap 3 (5-15); BUN 10 mg/dL (7-18); BUN/Creat Ratio 11.8 RATIO (10-20); Calcium,Total 8.9 mg/dL (8.5-10.1); Chloride 100 mmol/L (98-107); Cholesterol 150 mg/dL (200); Creatinine, Serum 0.85 mg/dL (0.70-1.30); EST Glomerular Filtration Rate 97 mL/min (>60); Est Glom Filt Rate - Afr Amer 117 mL/min (>60); Globulin 4.3 g/dL (2.2-4.2); Glucose 104 mg/dL (74-106); High Density Lipoprotein 36 mg/dL; Potassium 4.6 mmol/L (3.5-5.1); Protein, Total 7.9 g/dL (6.4-8.2); Sodium Level 135 mmol/L (136-145); T4 Free Direct 0.74 ng/dL (0.76-1.46); Thyroid Stim Hormone (TSH) 0.77 uIU/mL (0.358-3.74); Triglycerides 128 mg/dL; Very Low Density Lipoprotein 26 mg/dL (5-40)
[2020-12-16 12:40] LABS: Reactive Lymphocyte 1+
== END ==
PROVIDERS: PCP Family Medicine; Visit Provider Family Medicine
DX: I10 Essential (primary) hypertension (principal); D46.20 Refractory anemia with excess of blasts, unspecified; E03.9 Hypothyroidism, unspecified; E78.5 Hyperlipidemia, unspecified
CPT/HCPCS: 36415; 80053; 80061; 84439; 84443; 85025

== ENCOUNTER → 2021-08-26 13:07 | Outpatient (CLI) | payer OTHER, SELFPAY ==
--- NOTE | 2021-08-26 13:10 | CT_ITS ---
STUDY: LOW DOSE CT LUNG CANCER SCREENING REASON FOR EXAM: Male, 66 years old. Screening for lung cancer screening -- 40 pk yr; asymptomatic; former smoker RADIATION DOSAGE (If Supplied By Facility): CTDIvol = ( 1.59 ) mGy, DLP = ( 54.40 ) mGycm TECHNIQUE: No contrast was administered. Low dose technique was utilized (average mAS-38 and kVp 120). 1.25 mm axial source images with a slice interval of 1.25-mm were reconstructed in lung windows. 2.5 mm axial source images with a slice interval of 2.5-mm were reconstructed in lung windows. 5.0 mm axial source images with a slice interval of 5.0-mm were reconstructed in soft tissue windows. Nodule measured using lung windows on PACS and/or independent workstation with automated measurement of minimum and maximum diameter. Nodule measurement reported as average diameter rounded to the nearest whole number. Growth is defined as an increase ins size of greater than 1.5 mm. COMPARISON: Comparison is made with prior study dated 06/04/2020. NODULES: Stable scarring at the lung apices. Emphysema: Hyperinflation. Stable emphysematous changes. Endobronchial lesion: None Aorta: Atherosclerotic plaque formation of the ascending and descending thoracic aorta. Coronary arteries: Coronary artery calcification. Prior CABG Heart: Prior CABG Mediastinal nodes: Small mediastinal lymph nodes. Other chest and abdominal findings: CT/Low Dose CT Lung Screening IMPRESSION: Lung-RADS category 2 - Continue annual screening with LDCT in 12 months. IMPORTANT NOTES FOR USE: ACR Lung-RADS Version 1.1 Assessment Categories Release Date: 2018 Category: Coded 0-4 bases on nodule(s) with highest degree of suspicion. Negative screen is defined as categories 1 and 2; a positive screen is defined as categories 3 and 4. Category 3 and 4A nodules that are unchanged on interval CT should be coded as category 2, and individuals returned to screening in 12 months. Category 4X: Category 3 or 4 nodules with additional imaging findings that increase the suspicion of lung cancer, such as spiculation, GGN that doubles in size in 1 year, enlarged lymph notes, etc. Category Modifiers: S (significant finding unrelated to lung cancer) Electronically Signed: Russel Jean MD at 14:05 EDT , Service support ,
== END ==
PROVIDERS: PCP Family Medicine; Referring Provider Nurse Practitioner Family; Visit Provider Nurse Practitioner Family
DX: Z87.891 Personal history of nicotine dependence (principal); Z12.2 Encounter for screening for malignant neoplasm of respiratory organs
CPT/HCPCS: 71271

== ENCOUNTER → 2022-05-13 | Outpatient (CLI) | payer OTHER, SELFPAY ==
--- NOTE | 2022-05-13 09:50 | RAD_ITS ---
EXAM: XR LEFT SHOULDER COMPLETE, 2 OR MORE VIEWS CLINICAL INDICATION: SHOULDER PAIN TECHNIQUE: Two or more views of the left shoulder. This report was created using [employer] report generation technology. COMPARISON: CT of the liver is a mural FINDINGS: BONES/JOINTS: Unremarkable. No acute fracture. No subluxation. Normal alignment. Preservation of the joint space. No sclerotic or destructive changes observed. SOFT TISSUES: Unremarkable. No soft tissue swelling or gas. No radiopaque foreign body. RAD/Shoulder min 2 Views IMPRESSION: Intact left shoulder. Electronically Signed: Hipolito Camarena MD at 12:20 EDT ,
--- NOTE | 2022-05-13 09:50 | RAD_ITS ---
EXAM: XR CERVICAL SPINE, 4 OR 5 VIEWS CLINICAL INDICATION: NECK/SHOULDER PAIN TECHNIQUE: Frontal, lateral and bilateral oblique views of the cervical spine. This report was created using [employer] report generation technology. COMPARISON: None. FINDINGS: VERTEBRAE: Preserved vertebral body height. No acute fracture. No spondylolisthesis. Preservation of the normal cervical lordosis. No significant facet arthropathy. DISC SPACES: Disc space narrowing and bony spurring noted at the C4-5 and C5-6 levels associated with mild narrowing of the neural foramina. SOFT TISSUES: Unremarkable. No prevertebral soft tissue widening. LUNG APICES: Clear. RAD/Cerv Spine 4 or 5 Views IMPRESSION: Moderate C4-5 and C5-6 spondylosis. Electronically Signed: Hipolito Camarena MD at 12:30 EDT ,
== END | disposition home or self-care (01) ==
LOC: RAD 09:47
PROVIDERS: PCP Family Medicine; Referring Provider Family Medicine; Visit Provider Family Medicine
DX: M47.812 Spondylosis without myelopathy or radiculopathy, cervical region (principal); M25.512 Pain in left shoulder
CPT/HCPCS: 72050; 73030

== ENCOUNTER → 2022-07-31 | Outpatient (CLI) | payer OTHER, SELFPAY ==
--- NOTE | 2022-07-31 13:40 | RAD_ITS ---
STUDY: X-RAY - RIGHT KNEE REASON FOR EXAM: Male, 66 years old. His knee on something. PAIN TECHNIQUE: 4 view(s) of the knee. COMPARISON: None. FINDINGS: Normal visualized distal femur. Normal visualized proximal tibia and fibula. Normal proximal tibiofibular articulation. There is mild degenerative arthrosis of the medial femorotibial compartment. There is mild degenerative arthrosis of the lateral femorotibial compartment. There is mild degenerative arthrosis of the patellofemoral articulation. There are surgical clips projecting over the soft tissues posterior and medial to the knee. There is subcutaneous edema anterior to the patellar tendon. RAD/Knee 4 or More Views IMPRESSION: No acute osseous injury. Degenerative changes. Subcutaneous edema ventral to the patellar tendon. Electronically Signed: Brooklyn Correa MD at 14:00 EDT ,
== END | disposition home or self-care (01) ==
LOC: RAD 13:33
PROVIDERS: PCP Family Medicine; Referring Provider Family Medicine; Visit Provider Family Medicine
DX: M25.561 Pain in right knee (principal)
CPT/HCPCS: 73564

== ENCOUNTER → 2022-09-22 | Outpatient (CLI) | payer OTHER, SELFPAY ==
--- NOTE | 2022-09-22 15:30 | CT_ITS ---
STUDY: LOW DOSE CT LUNG CANCER SCREENING REASON FOR EXAM: Male, 67 years old. Former smoker. Approx 50 pack-year history. Stopped 5 years ago. RADIATION DOSAGE (If Supplied By Facility): CTDIvol = ( 2.01 ) mGy, DLP = ( 70.72 ) mGycm TECHNIQUE: No contrast was administered. Low dose technique was utilized (average mAS-38 and kVp 120). 1.25 mm axial source images with a slice interval of 1.25-mm were reconstructed in lung windows. 2.5 mm axial source images with a slice interval of 2.5-mm were reconstructed in lung windows. 5.0 mm axial source images with a slice interval of 5.0-mm were reconstructed in soft tissue windows. COMPARISON: August 26, 2021. NODULES: Total lung nodules (excluding granulomas): 0 Emphysema: Diffuse emphysematous changes of the lungs. There is apical pleural scarring and minimal scarring versus dependent changes in the lateral right lung base. Endobronchial lesion: None Aorta: Mild atherosclerotic tortuosity without aneurysm. CORONARY ARTERIES: Evidence of prior CABG procedure. Heart: Normal Pulmonary artery: Normal Mediastinal nodes: Stable mediastinal lymphadenopathy. Other chest and abdominal findings: Evidence of median sternotomy. CT/Low Dose CT Lung Screening IMPRESSION: Lung-RADS category 1 - Continue annual screening with LDCT in 12 months. IMPORTANT NOTES FOR USE: ACR Lung-RADS Version 1.1 Assessment Categories Release Date: 2018 Category: Coded 0-4 bases on nodule(s) with highest degree of suspicion. Negative screen is defined as categories 1 and 2; a positive screen is defined as categories 3 and 4. Category 3 and 4A nodules that are unchanged on interval CT should be coded as category 2, and individuals returned to screening in 12 months. Category 4X: Category 3 or 4 nodules with additional imaging findings that increase the suspicion of lung cancer, such as spiculation, GGN that doubles in size in 1 year, enlarged lymph notes, etc. Category Modifiers: S (significant finding unrelated to lung cancer) Electronically Signed: Morgan Bird DO at 17:16 EST Reading Location ID and State: [facility] / [place] Tel [phone], Service support ,
== END | disposition home or self-care (01) ==
LOC: CT 15:29
PROVIDERS: PCP Family Medicine; Referring Provider Nurse Practitioner Family; Visit Provider Nurse Practitioner Family
DX: Z87.891 Personal history of nicotine dependence (principal)
CPT/HCPCS: 71271

== ENCOUNTER 2023-03-12 16:18 | Emergency (ER) | payer OTHER, SELFPAY ==
[2023-03-12] VITALS (7 sets, daily range): BP systolic 111–130; BP diastolic 7–83; PULSE 68–76; RESP 12–18; TEMP 35.8–36.8; O2SAT 96–99; BMI 19.3
--- NOTE | 2023-03-12 16:50 | EKG12_ITS ---
Test Reason : Blood Pressure : / mmHG Vent. Rate : 067 BPM Atrial Rate : 067 BPM P-R Int : 162 ms QRS Dur : 094 ms QT Int : 446 ms P-R-T Axes : 067 071 074 degrees QTc Int : 471 ms Normal sinus rhythm Normal ECG Confirmed by CHIDI BOONE, MADAN ([id number]), fashion editor DENY WOOD ([id number]) on 03/15/2023 2:41:00 PM Referred By: Confirmed By:CHAUNCEY MURILLO MD
--- NOTE | 2023-03-12 17:32 | EX.ED.DYSGE1 ---
HPI <Dr. Akash Kendrick MD - Last Filed: 03/13/23 15:31> History of Present Illness Chief Complaint: Abn Labs Informant: patient Narrative Narrative: Patient presents with episodes of kind of a feeling of dizziness and overall weakness. He states he was changing the oil in his truck and when he was getting up and down he just felt weak and worn out. He thinks he needs blood or platelets or something. Of note, it is extremely difficult getting the history from this patient. It takes over 15 to 20 minutes of questioning before I find out he got out of the hospital 3 days ago from an approximately 3-week stay. He has a diagnosis of acute myelogenous leukemia. He had multiple transfusions of what sounds like both blood products and platelets up at [facility]. He is told he needs a bone marrow donor but his insurance will not cover that. He just states he feels kind of weak and feels like he needs some blood product. He denies any bleeding. I do note that he has a few petechiae on his left forearm and his left cortez but I do not see them anywhere else. He states he thinks those are new after working on his truck. He is not on any blood thinners. Its not clear if he is taking aspirin or not. I did review his other med list that is listed in the sounds as though it may be accurate. I have tried but cannot get access to the recent [facility] records. I have no recent blood work. I do have a bone marrow from several years ago. But this did not show leukemia at the time. Patient also states that he will not stay in the hospital. He has people coming from [place] and he has to go home. [facility] <Dr. Akash Kendrick MD - Last Filed: 03/13/23 15:31> [facility] Medical History AML (acute myeloid leukemia) Anemia Anxiety and depression Bilateral shoulder pain Cervical myofascial strain Cervical radiculopathy Depression Dysphagia Encounter for screening for malignant neoplasm of lung in former smoker who quit in past 15 years with 30 pack year history or greater GERD (gastroesophageal reflux disease) History of heart attack History of tobacco use HTN (hypertension) Hypercholesterolemia Hypothyroid Home Medications aspirin 81 mg chewable tablet 81 mg PO DAILY@0800 04/20/15 [History Last Taken 12/31/17] levothyroxine 100 mcg tablet 100 mcg PO DAILY 02/25/15 [History Last Taken 01/07/18 06:00] lisinopril 5 mg tablet 5 mg PO DAILY 02/25/15 [History Last Taken 01/07/18 06:00] metoprolol tartrate 25 mg tablet 25 mg PO DAILY 02/25/15 [History Last Taken 01/07/18 06:00] famotidine 40 mg tablet 40 mg PO DAILY 04/11/19 [History Last Taken Unknown] paroxetine HCl 20 mg tablet 20 mg PO DAILY 04/11/19 [History Last Taken Unknown] ferrous sulfate 325 mg (65 mg iron) tablet (Feosol) 325 mg PO DAILY 01/27/23 [History Last Taken Unknown] Allergy/AdvReac Type Severity Reaction Status Date / Time clopidogrel bisulfate AdvReac Severe Itching Verified 01/27/23 08:39 [From Plavix] Family History Father Diabetes CAD (coronary artery disease) Heart disease Hypertension Dementia Parkinson disease Mother CAD (coronary artery disease) Heart disease Hypertension Thyroid disorder CVA (cerebral vascular accident) Dementia Surgical History H/O colonoscopy H/O esophagogastroduodenoscopy History of left inguinal hernia repair Social History Smoking Status: Former smoker quit date: 10/31/08 pack-years: 40 Tobacco: How many years used: 40 Electronic Cigarette Use: not used how long ago did patient quit smokin second hand exposure: Yes quit status: quit date established counseling given: provider counseling alcohol intake: former substance use type: marijuana ROS <Dr. Akash Kendrick MD - Last Filed: 03/13/23 15:31> ROS ED Constitutional Constitutional ED: Denies chills or fever(s) Eyes Eyes: Denies change in vision ENT ENT ED: Denies rhinorrhea or sore throat Cardiovascular Cardiovascular: Denies chest pain, palpitations or racing heartbeat Respiratory/Chest Respiratory/Chest: Denies cough or dyspnea Gastrointestinal Gastrointestinal: Denies abdominal pain, diarrhea, melena, nausea or vomiting Genitourinary Genitourinary ED: Denies hematuria Musculoskeletal Musculoskeletal: Denies myalgias Integumentary Reports rash Neurologic Neurologic: Denies headache(s) or paresthesias Endocrine Endocrinology: Denies polydipsia or polyuria Hematologic/Lymphatic Hematologic/Lymphatic: Reports anemia Allergic/Immunologic Allergic/Immunologic ED: Denies urticaria EXAM <Dr. Akash Kendrick MD - Last Filed: 03/13/23 15:31> Physical Exam Narrative Exam Narrative: Patient is awake alert. Carries on normal conversation but is very poor informant for details of his history. HEENT: No trauma. I do not see intraoral petechiae. Eyes show no icterus Neck is supple. Lungs are clear bilaterally. Good deep breaths without pain. He is not hypoxic and his saturations at 97 to 98% on room air. Heart is regular. No murmur gallop or rub is heard. Abdomen is soft. There is no tenderness. Back shows no tenderness in the neck thoracic or lumbar spine. Extremities patient does have a few abrasions on his hands from working on his truck. He has a few petechiae in his left forearm. He states that is from hitting something on his truck today. I also see a few petechiae in his left cortez. But I do not see them elsewhere on his body. No large purpura. Neurologically he is awake alert with normal strength. Speech is normal. Const Vital Signs: 03/12/23 16:20 03/12/23 19:10 03/12/23 21:16 Temperature 96.5 F L 98.3 F Temperature Source Temporal Temporal Pulse Rate 76 71 69 Respiratory Rate 18 17 14 Blood Pressure 111/69 130/83 H 120/76 Blood Pressure Mean 83 98 90 Blood Pressure Source Monitor Blood Pressure Position Semi-Fowlers Blood Pressure Location Left Arm Pulse Ox 97 99 96 Oxygen Delivery Method Room Air Room Air Room Air 03/12/23 21:31 03/12/23 22:31 03/12/23 23:11 Temperature 98.1 F 98.2 F Temperature Source Temporal Temporal Pulse Rate 68 68 68 Respiratory Rate 15 17 12 Blood Pressure 121/75 H 119/82 H 114/72 Blood Pressure Mean 90 94 86 Blood Pressure Source Monitor Monitor Blood Pressure Position Semi-Fowlers Semi-Fowlers Blood Pressure Location Left Arm Left Arm Pulse Ox 96 97 98 Oxygen Delivery Method Room Air Room Air Room Air 03/12/23 23:31 03/13/23 00:31 03/13/23 00:31 Temperature 97.5 F L 98.2 F 98 F Temperature Source Temporal Temporal Temporal Pulse Rate 69 67 68 Respiratory Rate 14 14 20 H Blood Pressure 123/7 H 134/72 H 133/2 H Blood Pressure Mean 45 92 45 Blood Pressure Source Monitor Monitor Monitor Blood Pressure Position Semi-Fowlers Blood Pressure Location Left Arm Pulse Ox 97 98 97 Oxygen Delivery Method Room Air Room Air Room Air <Dr. Kevin Sandoval DO - Last Filed: 03/13/23 01:23> Physical Exam Const Vital Signs: 03/12/23 16:20 03/12/23 19:10 03/12/23 21:16 Temperature 96.5 F L 98.3 F Temperature Source Temporal Temporal Pulse Rate 76 71 69 Respiratory Rate 18 17 14 Blood Pressure 111/69 130/83 H 120/76 Blood Pressure Mean 83 98 90 Blood Pressure Source Monitor Blood Pressure Position Semi-Fowlers Blood Pressure Location Left Arm Pulse Ox 97 99 96 Oxygen Delivery Method Room Air Room Air Room Air 03/12/23 21:31 03/12/23 22:31 03/12/23 23:11 Temperature 98.1 F 98.2 F Temperature Source Temporal Temporal Pulse Rate 68 68 68 Respiratory Rate 15 17 12 Blood Pressure 121/75 H 119/82 H 114/72 Blood Pressure Mean 90 94 86 Blood Pressure Source Monitor Monitor Blood Pressure Position Semi-Fowlers Semi-Fowlers Blood Pressure Location Left Arm Left Arm Pulse Ox 96 97 98 Oxygen Delivery Method Room Air Room Air Room Air 03/12/23 23:31 03/13/23 00:31 03/13/23 00:31 Temperature 97.5 F L 98.2 F 98 F Temperature Source Temporal Temporal Temporal Pulse Rate 69 67 68 Respiratory Rate 14 14 20 H Blood Pressure 123/7 H 134/72 H 133/2 H Blood Pressure Mean 45 92 45 Blood Pressure Source Monitor Monitor Monitor Blood Pressure Position Semi-Fowlers Blood Pressure Location Left Arm Pulse Ox 97 98 97 Oxygen Delivery Method Room Air Room Air Room Air MDM <Dr. Akash Kendrick MD - Last Filed: 03/13/23 15:31> MDM MDM Narrative Medical decision making narrative: Patient CBC shows multiple abnormalities. He has a white count of 0.6 with absolute neutrophil count of 0.0 anemia with hemoglobin of 7.3 and thrombocytopenia at 4. Electrolytes showed mildly low potassium at 3.2 and this was replaced. Liver function test showed no marked abnormalities. Urinalysis showed no sign of infection. I talked with the patient about his labs. He states that his white count was very low. He states that his platelets are very low but he is not sure what the number is. He also said his hemoglobin was low. I cannot access his old records. I cannot access my chart. I talked with the patient about options. I explained that he has essentially no neutrophils to fight infection. But he is not having infectious symptoms such as fevers or chills. He actually states he feels normal now. He states he felt dizzy when he was getting up and down under his truck to change the oil but he feels better now. But I explained that he is anemic. I think with having his dizziness and that anemia giving him a transfusion of at least 1 unit is appropriate. With those platelets that low I think he also needs transfusion of that. He does have a few petechiae just on the left arm and left leg. Evidently these are areas that he did hit or bump while changing the oil. I do not see them in other areas of the body but they still occurred in an area of minor trauma. Patient states he will not be admitted to the hospital. I discussed admission or transfer up to [facility]. He does not want to do that. He did agree to get transfusion of blood and platelets as long as we get this ball rolling. I have ordered these trying to help him as much as I can within the limited abilities provided. He understands the risks and benefits of this. He is able to repeat these back to me. He has the capacity to make his own decisions. Patient does not want to come in the hospital. I certainly have concerns with his illness but he also has good follow-up. He does not feel ill. We will help him the best we can by giving transfusions. I think he is turned over to the oncoming doctor pending completion of these transfusions. Certainly if he changes his mind about transfer or admission we can discuss that easily. Lab Data Attestation: I reviewed the patient's lab results. Labs: Laboratory Results - last 24 hr 03/12/23 03/12/23 03/12/23 17:30 17:30 18:05 WBC 0.6 L* RBC 2.55 L Hgb 7.3 L Hct 21.8 L MCV 85.5 MCH 28.6 MCHC 33.5 RDW Std Deviation 48.0 H RDW Coeff of Eva 15.3 H Plt Count 4 L* MPV TNP Immature Gran % (Auto) 3.500 H Neut % (Auto) 5.2 L Lymph % (Auto) 66.7 H [place] % (Auto) 24.6 H Eos % (Auto) 0.0 Baso % (Auto) 0.0 Absolute Neuts (auto) 0.0 L Absolute Lymphs (auto) 0.38 L Nucleated RBC % 0 Differential Comment SCANNED Diff Path Review May foll Sodium 135 L Potassium 3.2 L Chloride 101 Carbon Dioxide 27.0 Anion Gap 7 BUN 9 Creatinine 0.71 Estim Creat Clear Calc 59.35 Est GFR (MDRD) Af Amer 142 Est GFR (MDRD) Non-Af 117 BUN/Creatinine Ratio 12.6 Glucose 110 H Calcium 8.2 L Total Bilirubin 0.60 AST 38 H ALT 50 Alkaline Phosphatase 81 Troponin I High Sens 51 Total Protein 6.0 L Albumin 2.6 L Globulin 3.4 Albumin/Globulin Ratio 0.8 L Urine Color Yellow Urine Clarity Sl. Cloudy Urine pH 6.5 Ur Specific [place] 1.020 Urine Protein 30 H Urine Glucose (UA) Normal Urine Ketones 5 H Urine Occult Blood 25 H Urine Nitrite Negative Urine Bilirubin Negative Urine Urobilinogen Normal Ur Leukocyte Esterase 25 H Urine RBC 0-5 SEEN Urine WBC 0-5 SEEN Ur Squamous Epith Cells 0 SEEN Calcium Oxalate Crystal 1+ Urine Bacteria RARE Urine Mucus 0 SEEN Blood Type Antibody Screen Crossmatch 03/12/23 03/12/23 19:00 19:00 WBC RBC Hgb Hct MCV MCH MCHC RDW Std Deviation RDW Coeff of Eva Plt Count MPV Immature Gran % (Auto) Neut % (Auto) Lymph % (Auto) [place] % (Auto) Eos % (Auto) Baso % (Auto) Absolute Neuts (auto) Absolute Lymphs (auto) Nucleated RBC % Differential Comment Diff Path Review Sodium Potassium Chloride Carbon Dioxide Anion Gap BUN Creatinine Estim Creat Clear Calc Est GFR (MDRD) Af Amer Est GFR (MDRD) Non-Af BUN/Creatinine Ratio Glucose Calcium Total Bilirubin AST ALT Alkaline Phosphatase Troponin I High Sens Total Protein Albumin Globulin Albumin/Globulin Ratio Urine Color Urine Clarity Urine pH Ur Specific [place] Urine Protein Urine Glucose (UA) Urine Ketones Urine Occult Blood Urine Nitrite Urine Bilirubin Urine Urobilinogen Ur Leukocyte Esterase Urine RBC Urine WBC Ur Squamous Epith Cells Calcium Oxalate Crystal Urine Bacteria Urine Mucus Blood Type A POSITIVE A POSITIVE Antibody Screen NEGATIVE Crossmatch See Detail EKG Initial EKG: Comments: My independent interpretation the patient's EKG done for lightheadedness shows a sinus rhythm with overall rate of 67. No ventricular ectopy. Nonspecific ST and T wave change but no sign of acute ST elevation or depression. RI interval, QRS duration and QTc are normal <Dr. Kevin Sandoval, DO - Last Filed: 03/13/23 01:23> [facility] Lab Data Labs: Laboratory Results - last 24 hr 03/12/23 03/12/23 03/12/23 17:30 17:30 18:05 WBC 0.6 L* RBC 2.55 L Hgb 7.3 L Hct 21.8 L MCV 85.5 MCH 28.6 MCHC 33.5 RDW Std Deviation 48.0 H RDW Coeff of Eva 15.3 H Plt Count 4 L* MPV TNP Immature Gran % (Auto) 3.500 H Neut % (Auto) 5.2 L Lymph % (Auto) 66.7 H [place] % (Auto) 24.6 H Eos % (Auto) 0.0 Baso % (Auto) 0.0 Absolute Neuts (auto) 0.0 L Absolute Lymphs (auto) 0.38 L Nucleated RBC % 0 Differential Comment SCANNED Diff Path Review May foll Sodium 135 L Potassium 3.2 L Chloride 101 Carbon Dioxide 27.0 Anion Gap 7 BUN 9 Creatinine 0.71 Estim Creat Clear Calc 59.35 Est GFR (MDRD) Af Amer 142 Est GFR (MDRD) Non-Af 117 BUN/Creatinine Ratio 12.6 Glucose 110 H Calcium 8.2 L Total Bilirubin 0.60 AST 38 H ALT 50 Alkaline Phosphatase 81 Troponin I High Sens 51 Total Protein 6.0 L Albumin 2.6 L Globulin 3.4 Albumin/Globulin Ratio 0.8 L Urine Color Yellow Urine Clarity Sl. Cloudy Urine pH 6.5 Ur Specific [place] 1.020 Urine Protein 30 H Urine Glucose (UA) Normal Urine Ketones 5 H Urine Occult Blood 25 H Urine Nitrite Negative Urine Bilirubin Negative Urine Urobilinogen Normal Ur Leukocyte Esterase 25 H Urine RBC 0-5 SEEN Urine WBC 0-5 SEEN Ur Squamous Epith Cells 0 SEEN Calcium Oxalate Crystal 1+ Urine Bacteria RARE Urine Mucus 0 SEEN Blood Type Antibody Screen Crossmatch 03/12/23 03/12/23 19:00 19:00 WBC RBC Hgb Hct MCV MCH MCHC RDW Std Deviation RDW Coeff of Eva Plt Count MPV Immature Gran % (Auto) Neut % (Auto) Lymph % (Auto) [place] % (Auto) Eos % (Auto) Baso % (Auto) Absolute Neuts (auto) Absolute Lymphs (auto) Nucleated RBC % Differential Comment Diff Path Review Sodium Potassium Chloride Carbon Dioxide Anion Gap BUN Creatinine Estim Creat Clear Calc Est GFR (MDRD) Af Amer Est GFR (MDRD) Non-Af BUN/Creatinine Ratio Glucose Calcium Total Bilirubin AST ALT Alkaline Phosphatase Troponin I High Sens Total Protein Albumin Globulin Albumin/Globulin Ratio Urine Color Urine Clarity Urine pH Ur Specific [place] Urine Protein Urine Glucose (UA) Urine Ketones Urine Occult Blood Urine Nitrite Urine Bilirubin Urine Urobilinogen Ur Leukocyte Esterase Urine RBC Urine WBC Ur Squamous Epith Cells Calcium Oxalate Crystal Urine Bacteria Urine Mucus Blood Type A POSITIVE A POSITIVE Antibody Screen NEGATIVE Crossmatch See Detail Treatment and Re-Evaluation :: Patient was signed out to me by Dr. Kendrick at 1230am. No acute events under my care. Patient remained hemodynamically stable, afebrile and nontoxic-appearing. There were no focal neurologic deficits on my exam. Patient was signed out pending platelet and blood transfusion. Transfusions were completed with no significant intra or transfusion events.' Offer of admission was reiterated to the patient. Patient was alert and orient x3 and had capacity to make his own medical decision and chose to be discharged home despite leukopenia, significant anemia and severe thrombocytopenia. Shared decision-making was undertaken. Return precautions were discussed. Follow-up instructions were also given. Patient had an opportunity to ask questions. All questions answered. Dispo: Discharge Discharge Plan Triage Chief Complaint: Abn Labs ED Provider: Akash Kendrick Dx/Rx/DC Orders Clinical Impression: Acute myelogenous leukemia, Thrombocytopenia, Anemia, Leukopenia, Neutropenia Instructions: Anemia, Neutropenia, Thrombocytopenia, What Is Leukemia? Prescriptions: No Action ferrous sulfate [Feosol] 325 mg (65 mg iron) tablet 325 mg PO DAILY levothyroxine 100 MCG tablet 100 mcg PO DAILY aspirin 81 MG tablet,chewable 81 mg PO DAILY@0800 lisinopril 5 MG tablet 5 mg PO DAILY metoprolol tartrate 25 MG tablet 25 mg PO DAILY famotidine 40 MG tablet 40 mg PO DAILY paroxetine HCl 20 MG tablet 20 mg PO DAILY Primary Care Provider: Care Physician,No Primary Referrals: Care Physician,No Primary [Primary Care Provider] - Activity Restrictions/Additional Instructions: Follow-up with your [facility] oncologist as soon as possible. Please return with fevers, weakness, bleeding, any other concerns. Disposition Disposition: Home, Self Care Discharge Date/Time: 03/13/23 01:04
[2023-03-12 17:43] LABS: Absolute Lymphocyte Count 0.38 X10^3/uL (0.83-4.51); Hematocrit 21.8 % (40-54); Hemoglobin 7.3 g/dL (13.0-16.5); Lymphocyte # 0.38 X10^3/ul (0.83-4.51); Lymphocyte % 66.7 % (19-41); Mean Corp Hgb Conc 33.5 g/dL (32-36); Mean Corpuscular Hgb 28.6 pg (27.0-32.0); Mean Corpuscular Volume 85.5 fL (80-94); Monocyte# 0.14 X10^3/uL; Monocyte% 24.6 % (0-10); NRBC Flagged by Analyzer 0 % (0-5); Neutrophil # 0.03 X10^3/uL (2.7-7.7); Neutrophil % 5.2 % (47-70); POSITIVE COUNT YES; POSITIVE DIFFERENTIAL YES; POSITIVE MORPHOLOGY YES; RBC Distribution Width CV 15.3 % (11.6-14.6); Red Blood Count 2.55 M/mm3 (4.6-6.2)
[2023-03-12 18:00] LABS: ALB/GLOB Ratio 0.8 RATIO (0.9-2.4); AST(SGOT) 38 U/L (15-37); Alanine Aminotransfer ALT/SGPT 50 U/L (16-61); Albumin, Serum 2.6 g/dL (3.2-5.0); Alkaline Phosphatase 81 U/L (45-117); Anion Gap 7 (5-15); BUN 9 mg/dL (7-18); BUN/Creat Ratio 12.6 RATIO (10-20); Calcium,Total 8.2 mg/dL (8.5-10.1); Chloride 101 mmol/L (98-107); Creatinine, Serum 0.71 mg/dL (0.70-1.30); EST Glomerular Filtration Rate 117 mL/min (>60); Est Glom Filt Rate - Afr Amer 142 mL/min (>60); Estimated Creatinine Clearance 59.35 ml/min; Globulin 3.4 g/dL (2.2-4.2); Glucose 110 mg/dL (74-106); Potassium 3.2 mmol/L (3.5-5.1); Sodium Level 135 mmol/L (136-145); Troponin-I HS 51 pg/mL (3.0-78.0)
[2023-03-12 18:10] LABS: Mucous, Urine 0 SEEN /hpf (<or=2+); Squamous Epithelial Cells - UA 0 SEEN /hpf (0-5)
[2023-03-12 18:11] LABS: Color, Urine Yellow (Yellow); Glucose, Dipstick Normal (Normal); Ketone-Dipstick 5 mg/dl (Negative); Leukocyte Esterase-Dipstick 25 /ul (Negative); Nitrite-Dipstick Negative (Negative); Occult Blood-Urine 25 /ul (Negative); Protein-Dipstick 30 mg/dl (Negative); Urine Bilirubin Dipstick Negative (Negative); Urine Clarity Sl. Cloudy (Clear); Urine Urobilinogen Normal (Normal); Urine pH 6.5 (5.0 - 8.0)
[2023-03-12] MEDS: Potassium Chloride Oral Tablet 20 MEQ 40 MEQ PO (18:16)
[2023-03-12 18:26] LABS: Differential Indicated SCAN CRITERIA MET; Platelet Count 4 K/mm3 (150-450); White Blood Count 0.6 K/mm3 (4.4-11.0)
[2023-03-12 18:27] LABS: Differential Comment SCANNED
[2023-03-12 18:27] LABS: Bacteria RARE /hpf (None Seen); Calcium Oxalate Crystals Ur 1+ /hpf (<or=2+); Red Blood Cells-Urine 0-5 SEEN /hpf (0-5); White Blood Cells 0-5 SEEN /hpf (0-5)
[2023-03-13 00:31] VITALS: BP 133/2; BP 134/72; PULSE 67; PULSE 68; RESP 14; RESP 20; TEMP 36.6; TEMP 36.8; O2SAT 97; O2SAT 98
[2023-03-16 09:34] LABS: Pathologist Review Reviewed
== END 2023-03-13 01:04 | disposition home or self-care (01) ==
PROVIDERS: Emergency Provider Emergency Medicine; Visit Provider Emergency Medicine
DX: C92.00 Acute myeloblastic leukemia, not having achieved remission (principal); D61.818 Other pancytopenia; I10 Essential (primary) hypertension; E78.00 Pure hypercholesterolemia, unspecified; R42 Dizziness and giddiness; Z87.891 Personal history of nicotine dependence
CPT/HCPCS: 36430; 80053; 81001; 84484; 85025; 86850; 86900; 86901; 86920; 86922; 86965; 87040; 93005; 99282; J7040; P9016; P9035; A4216

== ENCOUNTER → 2023-03-18 | Outpatient (CLI) | payer OTHER, SELFPAY | END | disposition home or self-care (01) | LOC: LABSPEC 12:41 | PROVIDERS: Referring Provider Internal Medicine Hematology & Oncology; Visit Provider Internal Medicine Hematology & Oncology | DX: D61.810 Antineoplastic chemotherapy induced pancytopenia (principal); C92.00 Acute myeloblastic leukemia, not having achieved remission | CPT/HCPCS: 86900; 86901 ==

== ENCOUNTER 2023-03-19 11:43 | Outpatient (CLI) | payer OTHER, SELFPAY ==
[2023-03-19 12:11] VITALS: BP 119/67; PULSE 74; RESP 16; TEMP 36.3; O2SAT 100; BMI 18.5
[2023-03-19 12:44] VITALS: BP 101/62; PULSE 71; RESP 16; TEMP 36.1; O2SAT 100
[2023-03-19 13:16] VITALS: BP 134/65; PULSE 70; RESP 16; TEMP 35.9; O2SAT 100
[2023-03-19 14:05] VITALS: BP 135/75; PULSE 68; RESP 16; TEMP 35.9; O2SAT 100
[2023-03-19] MEDS: 0.9% NaCl VAD Flush IV ×2 (14:28→14:32)
[2023-03-19 14:30] VITALS: BP 134/75; PULSE 70; RESP 16; TEMP 35.9; O2SAT 100
== END 2023-03-19 11:44 | disposition home or self-care (01) ==
LOC: MEDOUTP 11:44
PROVIDERS: Referring Provider Internal Medicine Hematology & Oncology; Visit Provider Internal Medicine Hematology & Oncology
DX: Z51.89 Encounter for other specified aftercare (principal); C92.00 Acute myeloblastic leukemia, not having achieved remission; D61.810 Antineoplastic chemotherapy induced pancytopenia
CPT/HCPCS: 36430; 86900; 86901; 86965; J7040; P9035; A4216

== ENCOUNTER 2023-03-23 10:54 | Outpatient (CLI) | payer OTHER, SELFPAY ==
[2023-03-23] MEDS: 0.9% NaCl VAD Flush IV ×2 (11:24→12:39)
[2023-03-23 11:27] VITALS: BP 110/78; PULSE 72; RESP 16; TEMP 36.7; O2SAT 100
[2023-03-23 12:39] VITALS: BP 143/70; PULSE 67; RESP 16; TEMP 36.3; O2SAT 100
== END 2023-03-23 10:55 | disposition home or self-care (01) ==
LOC: MEDOUTP 10:54
PROVIDERS: Referring Provider Internal Medicine Hematology & Oncology; Visit Provider Internal Medicine Hematology & Oncology
DX: D61.810 Antineoplastic chemotherapy induced pancytopenia (principal); C92.00 Acute myeloblastic leukemia, not having achieved remission
CPT/HCPCS: 36430; 86900; 86901; 86965; J7040; P9035; A4216

== ENCOUNTER 2023-03-26 08:51 | Outpatient (CLI) | payer OTHER, SELFPAY ==
[2023-03-26] MEDS: 0.9% NaCl VAD Flush IV ×3 (09:04→09:59)
[2023-03-26 09:05] VITALS: BP 123/70; PULSE 66; RESP 16; TEMP 35.9; O2SAT 100; BMI 18.8
[2023-03-26 09:35] VITALS: BP 131/82; PULSE 58; RESP 16; TEMP 35.9
[2023-03-26 09:57] VITALS: BP 139/78; PULSE 60; RESP 16; TEMP 35.8; O2SAT 100
== END 2023-03-26 08:52 | disposition home or self-care (01) ==
LOC: MEDOUTP 08:51
PROVIDERS: Referring Provider Internal Medicine Hematology & Oncology; Visit Provider Internal Medicine Hematology & Oncology
DX: D61.810 Antineoplastic chemotherapy induced pancytopenia (principal); C92.00 Acute myeloblastic leukemia, not having achieved remission
CPT/HCPCS: 36430; 86900; 86901; 86965; J7040; P9035; A4216

== ENCOUNTER 2023-03-30 10:05 | Outpatient (CLI) | payer OTHER, SELFPAY ==
[2023-03-30 10:14] VITALS: BP 126/80; PULSE 58; RESP 16; TEMP 36.2; O2SAT 100; BMI 18.8
[2023-03-30 10:45] VITALS: BP 131/65; PULSE 57; RESP 16; TEMP 36.1; O2SAT 100
== END 2023-03-30 10:06 | disposition home or self-care (01) ==
LOC: MEDOUTP 10:05
PROVIDERS: Referring Provider Internal Medicine Hematology & Oncology; Visit Provider Internal Medicine Hematology & Oncology
DX: D61.810 Antineoplastic chemotherapy induced pancytopenia (principal); C92.00 Acute myeloblastic leukemia, not having achieved remission
CPT/HCPCS: 36430; 86900; 86901; 86965; J7040; P9035; A4216

== ENCOUNTER 2023-04-02 09:21 | Outpatient (CLI) | payer OTHER, SELFPAY ==
[2023-04-02 09:32] VITALS: BP 142/74; PULSE 55; RESP 16; TEMP 35.8; O2SAT 100; BMI 18.8
[2023-04-02 10:04] VITALS: BP 137/83; PULSE 51; RESP 16; TEMP 36.1
[2023-04-02] MEDS: 0.9 % NaCl (Sterile) Posiflush 10 mL IV (11:00)
[2023-04-02 11:01] VITALS: BP 152/75; PULSE 53; RESP 16; TEMP 36.1
[2023-04-02] MEDS: 0.9% NaCl VAD Flush IV (11:15)
== END 2023-04-02 09:22 | disposition home or self-care (01) ==
LOC: MEDOUTP 09:21
PROVIDERS: Referring Provider Internal Medicine Hematology & Oncology; Visit Provider Internal Medicine Hematology & Oncology
DX: D61.810 Antineoplastic chemotherapy induced pancytopenia (principal); C92.00 Acute myeloblastic leukemia, not having achieved remission
CPT/HCPCS: 36430; 86900; 86901; 86965; J7040; P9035; A4216

== ENCOUNTER 2023-04-07 10:44 | Outpatient (CLI) | payer OTHER, SELFPAY ==
[2023-04-07] MEDS: 0.9% NaCl VAD Flush IV ×2 (10:53→11:46)
[2023-04-07 11:00] VITALS: BP 127/76; PULSE 61; RESP 16; TEMP 36.4; O2SAT 100; BMI 18.8
[2023-04-07 11:29] VITALS: BP 130/74; PULSE 56; RESP 16; TEMP 36.6
[2023-04-07 11:43] VITALS: BP 137/74; PULSE 57; RESP 16; TEMP 36.3; O2SAT 100
== END 2023-04-07 10:45 | disposition home or self-care (01) ==
LOC: MEDOUTP 10:44
PROVIDERS: Referring Provider Internal Medicine Hematology & Oncology; Visit Provider Internal Medicine Hematology & Oncology
DX: C92.00 Acute myeloblastic leukemia, not having achieved remission (principal); D61.810 Antineoplastic chemotherapy induced pancytopenia
CPT/HCPCS: 36430; 86900; 86901; 86965; J7040; P9037; A4216

== ENCOUNTER 2023-04-16 10:31 | Outpatient (CLI) | payer OTHER, SELFPAY ==
[2023-04-16] MEDS: 0.9% NaCl VAD Flush IV ×2 (11:04→13:05)
[2023-04-16 11:08] VITALS: BP 159/89; PULSE 63; RESP 16; TEMP 36.1; O2SAT 100; BMI 18.8
[2023-04-16 11:40] VITALS: BP 178/83; PULSE 60; RESP 16; TEMP 36.1; O2SAT 100
[2023-04-16 12:00] VITALS: BP 144/85; PULSE 60; RESP 16; TEMP 36.1; O2SAT 100
[2023-04-16 12:37] VITALS: BP 167/84; PULSE 58; RESP 16; TEMP 35.8; O2SAT 100
[2023-04-16 13:03] VITALS: BP 156/81; PULSE 60; RESP 16; TEMP 35.8; O2SAT 100
== END 2023-04-16 10:32 | disposition home or self-care (01) ==
LOC: MEDOUTP 10:31
PROVIDERS: Referring Provider Internal Medicine Hematology & Oncology; Visit Provider Internal Medicine Hematology & Oncology
DX: D61.810 Antineoplastic chemotherapy induced pancytopenia (principal); C92.00 Acute myeloblastic leukemia, not having achieved remission
CPT/HCPCS: 36430; 86900; 86901; 86965; J7040; P9035; A4216

== ENCOUNTER 2023-04-23 11:14 | Outpatient (CLI) | payer OTHER, SELFPAY ==
[2023-04-23 11:36] VITALS: BP 136/77; PULSE 67; RESP 16; TEMP 36.8; O2SAT 98; BMI 20.3
[2023-04-23 12:00] VITALS: BP 144/73; PULSE 63; RESP 16; TEMP 36.4; O2SAT 98
[2023-04-23 12:15] VITALS: BP 136/71; PULSE 58; RESP 16; TEMP 36.3; O2SAT 100
[2023-04-23 12:34] VITALS: BP 133/77; PULSE 60; RESP 16; TEMP 36.6; O2SAT 100
== END 2023-04-23 11:15 | disposition home or self-care (01) ==
LOC: MEDOUTP 11:15
PROVIDERS: Referring Provider Internal Medicine Hematology & Oncology; Visit Provider Internal Medicine Hematology & Oncology
DX: D61.810 Antineoplastic chemotherapy induced pancytopenia (principal); C92.00 Acute myeloblastic leukemia, not having achieved remission
CPT/HCPCS: 36430; 86900; 86901; 86965; J7040; P9035; A4216

== ENCOUNTER 2023-04-27 10:58 | Outpatient (CLI) | payer OTHER, SELFPAY ==
[2023-04-27] MEDS: 0.9% NaCl VAD Flush IV ×2 (11:14→12:09)
[2023-04-27 11:16] VITALS: BP 135/78; PULSE 62; RESP 16; TEMP 36.9; O2SAT 98
[2023-04-27 11:48] VITALS: BP 145/79; PULSE 58; RESP 16; TEMP 36.6; O2SAT 99
[2023-04-27 12:08] VITALS: BP 162/77; PULSE 59; RESP 16; TEMP 36.4; O2SAT 100
== END 2023-04-27 10:59 | disposition home or self-care (01) ==
LOC: MEDOUTP 10:58
PROVIDERS: Referring Provider Internal Medicine Hematology & Oncology; Visit Provider Internal Medicine Hematology & Oncology
DX: C92.00 Acute myeloblastic leukemia, not having achieved remission (principal); D61.810 Antineoplastic chemotherapy induced pancytopenia
CPT/HCPCS: 36430; 86900; 86901; 86965; J7040; P9035; A4216

== ENCOUNTER 2023-04-30 11:18 | Outpatient (CLI) | payer OTHER, SELFPAY ==
[2023-04-30 11:34] VITALS: BP 122/80; PULSE 60; RESP 16; TEMP 36.5; O2SAT 98; BMI 20.3
[2023-04-30] MEDS: 0.9% NaCl VAD Flush IV ×2 (11:37→12:34)
[2023-04-30 12:03] VITALS: BP 153/82; PULSE 59; RESP 16
[2023-04-30 12:29] VITALS: BP 166/83; PULSE 53; RESP 16; TEMP 36.8; O2SAT 100
== END 2023-04-30 11:19 | disposition home or self-care (01) ==
LOC: MEDOUTP 11:18
PROVIDERS: Referring Provider Internal Medicine Hematology & Oncology; Visit Provider Internal Medicine Hematology & Oncology
DX: C92.00 Acute myeloblastic leukemia, not having achieved remission (principal); D61.810 Antineoplastic chemotherapy induced pancytopenia
CPT/HCPCS: 36430; 86900; 86901; 86965; J7040; P9035; A4216

== ENCOUNTER 2023-05-10 18:26 | Emergency (ER) | payer OTHER, SELFPAY ==
[2023-05-10 18:27] VITALS: BP 162/87; PULSE 73; RESP 18; TEMP 36.9; O2SAT 98; BMI 19.5
--- NOTE | 2023-05-10 18:34 | EDS_ITS ---
HPI History of Present Illness Chief Complaint: Abn Labs Informant: patient Narrative Narrative: Patient had outpatient blood work today. He was called and told to go to the emergency department because his platelets were low. He states he thinks they were 9. He does not know what they normally are. 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 He sees Dr. Josy Teresa who is the director of leukemia unit at [facility]. It sounds like he last had chemo a week ago and is due to go in Wednesday for more chemo. He has had transfusions before. He was actually seen here a couple months ago by myself. He refused admission but did except some transfusions and follow-ups. I do not have any blood work that I have access to between hours on 12 March of this year. I do not have access to his work today. We will recheck this. On review of systems I also find out he has had recurrent problems with nausea. He is on meds but does not know the names but has not taken them today because of the nausea. He has thrown up a small amount of blood. He states it was just a little bit but it was red. It sounds like it was specks mixed in with vomitus. No blood or black stools. No hemoptysis. No headache. [facility] Medical History AML (acute myeloid leukemia) Anemia Anxiety and depression Bilateral shoulder pain Cervical myofascial strain Cervical radiculopathy Depression Dysphagia Encounter for screening for malignant neoplasm of lung in former smoker who quit in past 15 years with 30 pack year history or greater GERD (gastroesophageal reflux disease) History of heart attack History of tobacco use HTN (hypertension) Hypercholesterolemia Hypothyroid Home Medications levothyroxine 100 mcg tablet 100 mcg PO DAILY 02/25/15 [History Last Taken 01/07/18 06:00] metoprolol tartrate 25 mg tablet 25 mg PO DAILY 02/25/15 [History Last Taken 01/07/18 06:00] famotidine 40 mg tablet 40 mg PO DAILY 04/11/19 [History Last Taken Unknown] paroxetine HCl 20 mg tablet 20 mg PO DAILY 04/11/19 [History Last Taken Unknown] Allergy/AdvReac Type Severity Reaction Status Date / Time clopidogrel bisulfate AdvReac Severe Itching Verified 05/10/23 19:08 [From Plavix] Family History Father Diabetes CAD (coronary artery disease) Heart disease Hypertension Dementia Parkinson disease Mother CAD (coronary artery disease) Heart disease Hypertension Thyroid disorder CVA (cerebral vascular accident) Dementia Surgical History H/O colonoscopy H/O esophagogastroduodenoscopy History of left inguinal hernia repair Social History Smoking Status: Former smoker quit date: 10/31/08 pack-years: 40 Tobacco: How many years used: 40 Electronic Cigarette Use: not used how long ago did patient quit smokin second hand exposure: Yes quit status: quit date established counseling given: provider counseling alcohol intake: former substance use type: marijuana ROS ROS ED ROS Narrative CONSTITUTIONAL: Patient is nontoxic in appearance. The patient looks comfortable. He does not look markedly pale. HEENT: No notable trauma. Mucous membranes moist. No sinus tenderness. No indication of pain with swallowing. I see what may be a single petechiae on the posterior left soft palate. EYES: No conjunctival injection. No proptosis. CARDIOVASCULAR: Regular rate. Regular rhythm. No notable murmur. No JVD. RESPIRATORY: No respiratory distress. Breathing is unlabored. No wheezes. No rhonchi. No rales. No pain with a deep breath. He has a access port in the right upper chest that looks healthy is not bleeding or infected. GASTROINTESTINAL: Not distended. Bowel sounds are normal. No tenderness. No guarding. No rebound. No palpable mass. No bruit. Despite the nausea he has overall a benign abdomen. GENITOURINARY: No tenderness over the bladder. No CVA tenderness. MUSCULOSKELETAL: Atraumatic. No peripheral edema. No cord. No tenderness along the deep venous system. No asymmetry. NEUROLOGICAL: Patient is alert and appropriate. No focal deficit noted. SKIN: No noted rashes. No diaphoresis. There is a slight contusion on his left wrist but I do not see diffuse petechiae. I do not see markedly abnormal bruising or purpura. PSYCHIATRIC: Patient is calm. Mood is appropriate. EXAM Physical Exam Const Vital Signs: 05/10/23 18:27 05/10/23 18:37 05/10/23 21:03 Temperature 98.5 F 98.2 F Temperature Source Temporal Oral Pulse Rate 73 60 Respiratory Rate 18 15 Respiratory Pattern Normal Blood Pressure 162/87 H 163/81 H Blood Pressure Mean 112 108 Blood Pressure Source Monitor Blood Pressure Position Semi-Fowlers Blood Pressure Location Left Arm Pulse Ox 98 95 Oxygen Delivery Method Room Air Room Air 05/10/23 21:18 05/10/23 22:36 Temperature 98.7 F Temperature Source Oral Pulse Rate 66 65 Respiratory Rate 20 H 18 Respiratory Pattern Blood Pressure 152/77 H 159/72 H Blood Pressure Mean 102 101 Blood Pressure Source Monitor Blood Pressure Position Semi-Fowlers Blood Pressure Location Left Arm Pulse Ox 95 Oxygen Delivery Method Room Air Room Air MDM MDM MDM Narrative Medical decision making narrative: Patient CBC shows anemia at 8.5. But more significantly shows platelets low at 7000. PT and PTT were slightly elevated. Electrolytes show very low potassium at 2.6. This is likely the cause of his generalized weakness. Liver function test showed no marked abnormalities. Patient is given IV potassium here. We actually had platelets in stock that had been meant for another patient but not being used so we are able to divert those and make use of them on this patient. A second unit was ordered. I talked with the patient that since he has weakness nausea vomiting a little bit of blood in the vomitus low platelets and low potassium I was not real comfortable with him going home. He states he does feel ill enough to come in the hospital and when normally he refuses. He states he does not want to come in here though he wants to go to [facility] because that is where all his care and his doctors are. I did call to [facility]. I discussed the case with Dr. Ruiz who will accept the patient in transfer. In combination and GI bleed with low platelets, overall weakness with low potassium and still nauseated makes me think he will not do well as an outpatient. Lab Data Labs: Laboratory Results - last 24 hr 05/10/23 05/10/23 18:49 18:50 WBC 7.3 RBC 2.96 L Hgb 8.5 L Hct 27.6 L MCV 93.2 MCH 28.7 MCHC 30.8 L RDW Std Deviation 64.1 H RDW Coeff of Eva 19.9 H Plt Count 7 L* MPV TNP Neut % (Auto) Not Reportable Absolute Neuts (auto) 3.5 Absolute Lymphs (auto) 2.85 Total Counted 100 Neutrophils % (Manual) 46 L Band Neutrophils % 2 Lymphocytes % (Manual) 39 Monocytes % (Manual) 11 H Metamyelocytes % 1 Blast Cells % 1 H* Diff Path Review May foll Platelet Estimate MKD DEC RBC Morphology NORM C+C PT 15.3 H INR 1.2 APTT 46.2 H Sodium 137 Potassium 2.6 L* Chloride 105 Carbon Dioxide 25.0 Anion Gap 7 BUN 8 Creatinine 0.74 Estim Creat Clear Calc 60.14 Est GFR (MDRD) Af Amer 136 Est GFR (MDRD) Non-Af 113 BUN/Creatinine Ratio 10.9 Glucose 155 H Calcium 8.4 L Total Bilirubin 0.80 AST 26 ALT 26 Alkaline Phosphatase 131 H Total Protein 7.2 Albumin 2.9 L Globulin 4.3 H Albumin/Globulin Ratio 0.7 L Blood Type A POSITIVE Antibody Screen NEGATIVE EKG Initial EKG: Comments: My independent interpretation the patient's EKG shows sinus with occasional PVC. Overall rate is 62. Diffuse nonspecific ST and T wave changes. DE interval, QRS duration and QTc are normal though. Management Discussion w/another healthcare provider: Value Analyst and Other (Case discussed with blood bank and attempt to get correct platelets.) Discharge Plan Triage Chief Complaint: Abn Labs ED Provider: Akash Kendrick Dx/Rx/DC Orders Clinical Impression: AML (acute myeloblastic leukemia), Generalized weakness, Thrombocytopenia, Bloody emesis, Acute hypokalemia Prescriptions: No Action levothyroxine 100 MCG tablet 100 mcg PO DAILY metoprolol tartrate 25 MG tablet 25 mg PO DAILY famotidine 40 MG tablet 40 mg PO DAILY paroxetine HCl 20 MG tablet 20 mg PO DAILY Primary Care Provider: Care Physician,No Primary Referrals: Care Physician,No Primary [Primary Care Provider] - Disposition Disposition: Acute Care Hospital Discharge Location: [facility]
--- NOTE | 2023-05-10 18:37 | EKG12_ITS ---
Test Reason : DYSRHYTHMIA Blood Pressure : / mmHG Vent. Rate : 062 BPM Atrial Rate : 062 BPM P-R Int : 166 ms QRS Dur : 086 ms QT Int : 456 ms P-R-T Axes : 061 062 068 degrees QTc Int : 462 ms Sinus rhythm with occasional Premature ventricular complexes Septal infarct , age undetermined Abnormal ECG Confirmed by CHIDI BOONE, MADAN ([id number]), general expeditor DENY WOOD ([id number]) on 05/12/2023 11:32:10 AM Referred By: PL Confirmed By:CHAUNCEY MURILLO MD
[2023-05-10 19:06] LABS: Hematocrit 27.6 % (40-54); Hemoglobin 8.5 g/dL (13.0-16.5); Mean Corp Hgb Conc 30.8 g/dL (32-36); Mean Corpuscular Hgb 28.7 pg (27.0-32.0); Mean Corpuscular Volume 93.2 fL (80-94); POSITIVE COUNT YES; POSITIVE DIFFERENTIAL YES; POSITIVE MORPHOLOGY YES; Platelet Count 7 K/mm3 (150-450); RBC Distribution Width CV 19.9 % (11.6-14.6); RBC Distribution Width SD 64.1 fl (35.1-43.9); Red Blood Count 2.96 M/mm3 (4.6-6.2); White Blood Count 7.3 K/mm3 (4.4-11.0)
[2023-05-10 19:10] LABS: Differential Indicated MANUAL DIFF
[2023-05-10 19:13] LABS: International Normalized Ratio 1.2; Prothrombin Time (Protime)PT. 15.3 SECONDS (11.7-14.9)
[2023-05-10 19:15] LABS: Partial Thromboplast Time 46.2 Seconds (24.1-36.2)
[2023-05-10 19:31] LABS: Blast 1 % (0-0); Lymphocyte 39 % (19-41); Metamyelocyte 1 % (0-1); Monocyte 11 % (0-10); Neutrophil-Band 2 % (0-5); Neutrophil-Segmented 46 % (47-70); Red Cell Morphology NORM C+C NORMAL (NORM C&C); Total Cells Counted 100 (MANUAL DIFF)
[2023-05-10 19:32] LABS: ALB/GLOB Ratio 0.7 RATIO (0.9-2.4); AST(SGOT) 26 U/L (15-37); Absolute Lymphocyte Count 2.85 X10^3/uL (0.83-4.51); Absolute Neutrophil Count 3.5 X10^3/uL (2.0-7.7); Alanine Aminotransfer ALT/SGPT 26 U/L (16-61); Albumin, Serum 2.9 g/dL (3.2-5.0); Alkaline Phosphatase 131 U/L (45-117); Anion Gap 7 (5-15); BUN 8 mg/dL (7-18); BUN/Creat Ratio 10.9 RATIO (10-20); Calcium,Total 8.4 mg/dL (8.5-10.1); Chloride 105 mmol/L (98-107); Creatinine, Serum 0.74 mg/dL (0.70-1.30); EST Glomerular Filtration Rate 113 mL/min (>60); Est Glom Filt Rate - Afr Amer 136 mL/min (>60); Estimated Creatinine Clearance 60.14 ml/min; Globulin 4.3 g/dL (2.2-4.2); Glucose 155 mg/dL (74-106); Platelet Estimate MKD DEC (ADEQ); Potassium 2.6 mmol/L (3.5-5.1); Protein, Total 7.2 g/dL (6.4-8.2); Sodium Level 137 mmol/L (136-145)
[2023-05-10] MEDS: Potassium Chloride 10mEq/100mL 10 MEQ/100 ML IV.SOLN. 100 MEQ IV BOLUS ×4 (20:28→23:35)
[2023-05-10 21:03] VITALS: BP 163/81; PULSE 60; RESP 15; TEMP 36.8; O2SAT 95
[2023-05-10 21:18] VITALS: BP 152/77; PULSE 66; RESP 20; TEMP 37.1; O2SAT 95
[2023-05-10 22:36] VITALS: BP 159/72; PULSE 65; RESP 18
--- NOTE | 2023-05-10 23:05 | ED.RN ---
[facility] ETA @7015 2-3 HRS (0100/0200)
[2023-05-11] VITALS: BP 146/73; PULSE 67; RESP 20; O2SAT 95
[2023-05-11 01:27] VITALS: BP 170/83; PULSE 58; RESP 21; TEMP 37.1; O2SAT 95
[2023-05-14 09:48] LABS: Pathologist Review Reviewed
== END 2023-05-11 01:35 | disposition short-term general hospital (02) ==
PROVIDERS: Emergency Provider Emergency Medicine; Visit Provider Emergency Medicine
DX: C92.00 Acute myeloblastic leukemia, not having achieved remission (principal); D69.6 Thrombocytopenia, unspecified; E78.00 Pure hypercholesterolemia, unspecified; Z87.891 Personal history of nicotine dependence; E87.6 Hypokalemia; I10 Essential (primary) hypertension; K92.2 Gastrointestinal hemorrhage, unspecified
CPT/HCPCS: 36591; 80053; 85025; 85610; 85730; 86850; 86900; 86901; 86965; 93005; 96365; 96366; 96367; 99283; J7040; J7050; P9035; A4216; J3490

== ENCOUNTER 2023-05-25 10:50 | Outpatient (CLI) | payer MEDICARE, SELFPAY ==
[2023-05-25 11:00] VITALS: BP 147/80; PULSE 57; RESP 16; TEMP 36.3; O2SAT 100
[2023-05-25 11:26] VITALS: BP 130/78; PULSE 55; RESP 16; TEMP 36.3; O2SAT 100
[2023-05-25 11:57] VITALS: BP 143/73; PULSE 53; RESP 16; TEMP 36.4; O2SAT 99
== END 2023-05-25 10:51 | disposition home or self-care (01) ==
PROVIDERS: Referring Provider Internal Medicine Hematology & Oncology; Visit Provider Internal Medicine Hematology & Oncology
DX: D61.810 Antineoplastic chemotherapy induced pancytopenia (principal); C92.00 Acute myeloblastic leukemia, not having achieved remission
CPT/HCPCS: 36430; 86900; 86901; 86965; J7040; P9035; A4216

== ENCOUNTER 2023-05-26 08:10 | Outpatient (CLI) | payer MEDICARE, SELFPAY ==
[2023-05-26] VITALS (7 sets, daily range): BP systolic 146–172; BP diastolic 76–86; PULSE 58–68; RESP 14–16; TEMP 36.3–36.5; O2SAT 100
[2023-05-26] MEDS: 0.9% NaCl VAD Flush IV ×2 (08:14→12:03)
== END 2023-05-26 08:11 | disposition home or self-care (01) ==
LOC: MEDOUTP 08:10
PROVIDERS: Referring Provider Internal Medicine Hematology & Oncology; Visit Provider Internal Medicine Hematology & Oncology
DX: D61.810 Antineoplastic chemotherapy induced pancytopenia (principal); C92.00 Acute myeloblastic leukemia, not having achieved remission
CPT/HCPCS: 36430; 86644; 86850; 86900; 86901; 86920; 86965; J7040; P9035; P9040; A4216

== ENCOUNTER 2023-06-01 12:57 | Outpatient (CLI) | payer MEDICARE, SELFPAY ==
[2023-06-01] MEDS: 0.9 % NaCl (Sterile) Posiflush 10 mL IV (13:08)
[2023-06-01 13:09] VITALS: BP 168/85; PULSE 47; RESP 16; TEMP 35.9; O2SAT 100
[2023-06-01 13:34] VITALS: BP 172/80; PULSE 47; RESP 16; TEMP 35.8; O2SAT 100
[2023-06-01 14:04] VITALS: BP 167/73; PULSE 46; RESP 16; TEMP 35.9
[2023-06-01 14:10] VITALS: BP 167/73
[2023-06-01] MEDS: 0.9% NaCl VAD Flush IV (14:10)
== END 2023-06-01 12:58 | disposition home or self-care (01) ==
LOC: MEDOUTP 12:58
PROVIDERS: Referring Provider Internal Medicine Hematology & Oncology; Visit Provider Internal Medicine Hematology & Oncology
DX: D61.810 Antineoplastic chemotherapy induced pancytopenia (principal); C92.00 Acute myeloblastic leukemia, not having achieved remission
CPT/HCPCS: 36430; 86900; 86901; 86965; J7040; P9035; A4216

== ENCOUNTER 2023-06-04 09:42 | Outpatient (CLI) | payer MEDICARE, SELFPAY ==
[2023-06-04 09:52] VITALS: BP 106/65; PULSE 65; RESP 16; TEMP 35.7; O2SAT 99; BMI 18.8
[2023-06-04 10:26] VITALS: BP 104/60; PULSE 59; RESP 16; TEMP 35.8; O2SAT 100
[2023-06-04 10:37] VITALS: BP 111/69; PULSE 58; RESP 16; TEMP 35.8; O2SAT 100
== END 2023-06-04 09:43 | disposition home or self-care (01) ==
LOC: MEDOUTP 09:43
PROVIDERS: Referring Provider Internal Medicine Hematology & Oncology; Visit Provider Internal Medicine Hematology & Oncology
DX: D61.810 Antineoplastic chemotherapy induced pancytopenia (principal); C92.00 Acute myeloblastic leukemia, not having achieved remission
CPT/HCPCS: 36430; 86900; 86901; 86965; J7040; P9035; A4216

== ENCOUNTER 2023-06-08 10:45 | Outpatient (CLI) | payer MEDICARE, SELFPAY ==
[2023-06-08 11:05] VITALS: BP 118/64; PULSE 63; RESP 16; TEMP 36.2; O2SAT 100; BMI 18.8
[2023-06-08] MEDS: 0.9% NaCl VAD Flush IV ×2 (11:10→14:16)
[2023-06-08 11:38] VITALS: BP 106/63; PULSE 57; RESP 16; TEMP 36.4; O2SAT 100
[2023-06-08 12:00] VITALS: BP 118/61; PULSE 65; RESP 16; TEMP 36.4; O2SAT 100
[2023-06-08 12:19] VITALS: BP 124/74; PULSE 52; RESP 16; TEMP 36.6; O2SAT 100
[2023-06-08 12:34] VITALS: BP 108/63; PULSE 57; RESP 16; TEMP 36.3; O2SAT 100
[2023-06-08 14:12] VITALS: BP 132/75; PULSE 55; RESP 16; TEMP 36.7; O2SAT 100
== END 2023-06-08 10:46 | disposition home or self-care (01) ==
LOC: MEDOUTP 10:45
PROVIDERS: Referring Provider Internal Medicine Hematology & Oncology; Visit Provider Internal Medicine Hematology & Oncology
DX: D61.810 Antineoplastic chemotherapy induced pancytopenia (principal); C93.00 Acute monoblastic/monocytic leukemia, not having achieved remission
CPT/HCPCS: 36430; 86850; 86900; 86901; 86920; 86922; 86965; J7040; P9035; P9040; A4216

== ENCOUNTER 2023-06-15 09:48 | Outpatient (CLI) | payer MEDICARE, SELFPAY ==
[2023-06-15] VITALS (7 sets, daily range): BP systolic 109–148; BP diastolic 65–77; PULSE 55–68; RESP 16; TEMP 36.2–36.5; O2SAT 100; BMI 18.8
[2023-06-15] MEDS: 0.9% NaCl VAD Flush IV ×2 (10:23→14:25)
== END 2023-06-15 09:49 | disposition home or self-care (01) ==
PROVIDERS: Referring Provider Internal Medicine Hematology & Oncology; Visit Provider Internal Medicine Hematology & Oncology
DX: D61.810 Antineoplastic chemotherapy induced pancytopenia (principal); C92.00 Acute myeloblastic leukemia, not having achieved remission
CPT/HCPCS: 36430; 86850; 86900; 86901; 86920; 86922; 86965; J7040; P9035; P9040; A4216

== ENCOUNTER 2023-06-18 10:47 | Outpatient (CLI) | payer MEDICARE, SELFPAY ==
[2023-06-18] MEDS: 0.9% NaCl VAD Flush IV ×2 (10:57→13:10)
[2023-06-18 11:00] VITALS: BP 130/74; PULSE 63; RESP 16; TEMP 36.6; O2SAT 98; BMI 18.8
[2023-06-18 11:29] VITALS: BP 125/69; PULSE 59; RESP 16; TEMP 36.8; O2SAT 99
[2023-06-18 13:12] VITALS: BP 147/84; PULSE 53; RESP 16; TEMP 36.6; O2SAT 100
== END 2023-06-18 10:48 | disposition home or self-care (01) ==
LOC: MEDOUTP 10:47
PROVIDERS: Referring Provider Internal Medicine Hematology & Oncology; Visit Provider Internal Medicine Hematology & Oncology
DX: D61.810 Antineoplastic chemotherapy induced pancytopenia (principal); C92.00 Acute myeloblastic leukemia, not having achieved remission
CPT/HCPCS: 36430; 86644; 86850; 86900; 86901; 86920; 86922; J7040; P9040; A4216

== ENCOUNTER 2023-06-24 07:48 | Outpatient (CLI) | payer MEDICARE, SELFPAY ==
[2023-06-24] VITALS (11 sets, daily range): BP systolic 99–155; BP diastolic 60–79; PULSE 54–68; RESP 16; TEMP 36.4–36.8; O2SAT 98–100; BMI 18.2
[2023-06-24] MEDS: 0.9% NaCl VAD Flush IV ×2 (08:06→13:37)
== END 2023-06-24 07:49 | disposition home or self-care (01) ==
LOC: MEDOUTP 07:48
PROVIDERS: Referring Provider Internal Medicine Hematology & Oncology; Visit Provider Internal Medicine Hematology & Oncology
DX: D61.810 Antineoplastic chemotherapy induced pancytopenia (principal); C92.00 Acute myeloblastic leukemia, not having achieved remission
CPT/HCPCS: 36430; 86644; 86850; 86900; 86901; 86920; 86922; 86965; J7040; P9035; P9040; A4216

== ENCOUNTER 2023-06-29 09:03 | Outpatient (CLI) | payer MEDICARE, OTHER, SELFPAY ==
[2023-06-29 09:17] VITALS: BP 163/72; PULSE 55; RESP 16; TEMP 36.3; O2SAT 99; BMI 19.1
[2023-06-29] MEDS: 0.9% NaCl VAD Flush IV ×3 (09:21→13:29)
[2023-06-29 09:40] VITALS: BP 140/74; PULSE 51; RESP 16; TEMP 36.4; O2SAT 100
[2023-06-29 10:39] VITALS: BP 135/68; PULSE 51; RESP 16; TEMP 36.3; O2SAT 99
[2023-06-29 11:08] VITALS: BP 151/81; PULSE 50; RESP 16; TEMP 36.2
[2023-06-29 12:18] VITALS: BP 160/83; PULSE 50; RESP 16; TEMP 36.2; O2SAT 98
[2023-06-29 13:39] LABS: Hematocrit 25.1 % (40-54); Hemoglobin 8.8 g/dL (13.0-16.5); Mean Corp Hgb Conc 35.1 g/dL (32-36); Mean Corpuscular Hgb 29.6 pg (27.0-32.0); Mean Corpuscular Volume 84.5 fL (80-94); POSITIVE COUNT YES; RBC Distribution Width CV 13.4 % (11.6-14.6); Red Blood Count 2.97 M/mm3 (4.6-6.2)
[2023-06-29 13:47] LABS: Platelet Count 29 K/mm3 (150-450); Scan Indicated on CBC? Y/N YES- FLAGS NOTED; White Blood Count 0.5 K/mm3 (4.4-11.0)
[2023-06-29 13:58] LABS: Differential Comment SCANNED
[2023-07-01 08:55] LABS: Pathologist Review Reviewed
== END 2023-06-29 09:04 | disposition home or self-care (01) ==
LOC: MEDOUTP 09:03
PROVIDERS: Referring Provider Internal Medicine Hematology & Oncology; Visit Provider Internal Medicine Hematology & Oncology
DX: D61.810 Antineoplastic chemotherapy induced pancytopenia (principal); C92.00 Acute myeloblastic leukemia, not having achieved remission
CPT/HCPCS: 36430; 36592; 85027; 86644; 86850; 86900; 86901; 86920; 86965; J7040; P9035; P9040; A4216

== ENCOUNTER 2023-07-02 11:51 | Outpatient (CLI) | payer MEDICARE, SELFPAY ==
[2023-07-02 12:17] VITALS: BP 127/68; PULSE 50; RESP 16; TEMP 35.9; O2SAT 99; BMI 19.4
[2023-07-02 13:11] VITALS: BP 123/70; PULSE 53; RESP 16; TEMP 36.3; O2SAT 98
[2023-07-02 13:26] VITALS: BP 106/61; PULSE 54; RESP 16; TEMP 36.3; O2SAT 100
[2023-07-02 14:46] LABS: Hematocrit 23.6 % (40-54); Hemoglobin 8.2 g/dL (13.0-16.5); Mean Corp Hgb Conc 34.7 g/dL (32-36); Mean Corpuscular Hgb 29.5 pg (27.0-32.0); Mean Corpuscular Volume 84.9 fL (80-94); Mean Platelet Vol. 9.1 fl (6.2-12.0); POSITIVE COUNT YES; POSITIVE DIFFERENTIAL YES; POSITIVE MORPHOLOGY YES; Platelet Count 42 K/mm3 (150-450); RBC Distribution Width CV 12.8 % (11.6-14.6); RBC Distribution Width SD 38.7 fl (35.1-43.9); Red Blood Count 2.78 M/mm3 (4.6-6.2); White Blood Count 0.4 K/mm3 (4.4-11.0)
[2023-07-02 14:51] LABS: Scan Indicated on CBC? Y/N YES- FLAGS NOTED
[2023-07-02 16:06] LABS: Differential Comment SCANNED
[2023-07-06 09:45] LABS: Pathologist Review Reviewed
== END 2023-07-02 11:52 | disposition home or self-care (01) ==
PROVIDERS: Referring Provider Internal Medicine Hematology & Oncology; Visit Provider Internal Medicine Hematology & Oncology
DX: D61.810 Antineoplastic chemotherapy induced pancytopenia (principal); C92.00 Acute myeloblastic leukemia, not having achieved remission
CPT/HCPCS: 36430; 36592; 85027; 86900; 86901; 86965; J7040; P9035; A4216

== ENCOUNTER 2023-07-04 21:18 | Inpatient (IN) | payer MEDICARE, OTHER, SELFPAY ==
[2023-07-04 21:19] VITALS: BP 131/85; PULSE 91; RESP 16; TEMP 36.8; O2SAT 98; BMI 18.6
--- NOTE | 2023-07-04 21:59 | EKG12_ITS ---
Test Reason : DYSRHYTHMIA Blood Pressure : / mmHG Vent. Rate : 077 BPM Atrial Rate : 077 BPM P-R Int : 162 ms QRS Dur : 094 ms QT Int : 402 ms P-R-T Axes : 074 072 049 degrees QTc Int : 454 ms Normal sinus rhythm Nonspecific ST abnormality Abnormal ECG Confirmed by CHIDI BOONE, MADAN ([id number]), newspaper or periodical editor MENA GARCIA ([id number]) on 07/29/2023 2:18:43 PM Referred By: SHANNEN Confirmed By:CHAUNCEY MURILLO MD
[2023-07-04 22:20] VITALS: BP 156/89; PULSE 81; RESP 26; TEMP 37.1; O2SAT 97
[2023-07-04] MEDS: 0.9% Normal Saline 1,000 ML 1000 ML IV (22:41)
[2023-07-04] MEDS: Ondansetron 4 MG/2 ML Vial IV (22:42)
[2023-07-04 22:53] LABS: ALB/GLOB Ratio 0.8 RATIO (0.9-2.4); AST(SGOT) 17 U/L (15-37); Alanine Aminotransfer ALT/SGPT 31 U/L (16-61); Alkaline Phosphatase 172 U/L (45-117); Anion Gap 9 (5-15); BUN 16 mg/dL (7-18); BUN/Creat Ratio 26.7 RATIO (10-20); Calcium,Total 8.7 mg/dL (8.5-10.1); Chloride 98 mmol/L (98-107); EST Glomerular Filtration Rate 143 mL/min (>60); Est Glom Filt Rate - Afr Amer 173 mL/min (>60); Estimated Creatinine Clearance 57.01 ml/min; Globulin 3.8 g/dL (2.2-4.2); Glucose 179 mg/dL (74-106); Hematocrit 19.4 % (40-54); Mean Corp Hgb Conc 36.1 g/dL (32-36); Mean Corpuscular Hgb 29.4 pg (27.0-32.0); Mean Corpuscular Volume 81.5 fL (80-94); Mean Platelet Vol. 8.3 fl (6.2-12.0); POSITIVE COUNT YES; POSITIVE DIFFERENTIAL YES; POSITIVE MORPHOLOGY YES; Potassium 2.8 mmol/L (3.5-5.1); Protein, Total 6.8 g/dL (6.4-8.2); RBC Distribution Width SD 38.7 fl (35.1-43.9); Red Blood Count 2.38 M/mm3 (4.6-6.2); Sodium Level 131 mmol/L (136-145)
--- NOTE | 2023-07-04 22:55 | RAD_ITS ---
INDICATION: Cough EXAMINATION/TECHNIQUE: X-RAY - XR Chest 2 Views COMPARISON: Chest CT 09/22/2022. Findings: Frontal and lateral views] of the chest. LUNG PARENCHYMA: No acute focal airspace disease or mass lesion. Increased parenchymal lucency with flattening of the hemidiaphragms consistent with air trapping as can be seen with COPD change. PLEURA: No pleural effusion. No pneumothorax. HEART/GREAT VESSELS: Cardiomediastinal silhouette is not enlarged. Post-CABG changes. Right central venous catheter multilumen tip overlies cavoatrial junction. BONES: Median sternotomy wires. RAD/Chest PA and Lateral IMPRESSION: Air trapping as can be seen with COPD change. Otherwise, stable chest with no acute disease. Electronically Signed: August Varela MD at 23:24 EDT ,
[2023-07-04 23:00] VITALS: BP 147/82; PULSE 78; RESP 35; TEMP 36.6; O2SAT 94
[2023-07-04 23:00] LABS: White Blood Count 0.3 K/mm3 (4.4-11.0)
[2023-07-04 23:01] LABS: Differential Indicated MANUAL DIFF; Platelet Count 12 K/mm3 (150-450)
[2023-07-04 23:05] LABS: Lactic Acid 1.6 mmol/L (0.4-1.9)
--- NOTE | 2023-07-04 23:22 | EDS_ITS ---
HPI History of Present Illness Chief Complaint: General Illness Detail of Chief Complaint: Elevated temperature with shaking chills Informant: patient Onset/Context/Timing Onset: Today Context: Sudden Onset Timing: Intermittent Quality: Shaking chills with temperature of 99.8 and complains of nausea and vomitin Location: Generalized Current Severity: Mild Maximum Severity: Moderate Worsened by: Nothing Relieved by: Nothing Associated Symptoms Associated Symptoms: Nausea and vomiting brown appearing liquid Narrative Narrative: Patient is a 67-year-old male with history of MDS with pancytopenia, acute leukemia who presents because of temperature of 99.8 with shaking chills not feeling well. Patient does endorse slight cough. The cough is nonproductive. He has had nausea and vomiting of brown-colored material. He states he has vomited several times. He denies black or maroon-colored stool. He denies diarrhea. He does endorse thirst and dry mouth. He also endorses decreased urine output. He does complain of feeling lightheaded when he is upright. Patient denies bruising easily. Patient states he does get short of breath. He does have history of anemia. He also has history of hypothyroidism. Prior similar symptoms: No Recent Illness/Hospitalization: No [facility] Medical History AML (acute myeloid leukemia) Anemia Anemia Anxiety and depression Anxiety and depression Bilateral shoulder pain Cervical myofascial strain Cervical radiculopathy Chest pain Coronary artery disease Depression Dysphagia Encounter for screening for malignant neoplasm of lung in former smoker who quit in past 15 years with 30 pack year history or greater Former smoker GERD (gastroesophageal reflux disease) GERD (gastroesophageal reflux disease) History of alcohol abuse History of heart attack History of tobacco use HLD (hyperlipidemia) HTN (hypertension) Hypercholesterolemia Hypertension Hypothyroid Hypothyroidism Myocardial infarct Home Medications levothyroxine 100 mcg tablet 100 mcg PO DAILY 02/25/15 [History Last Taken 01/07/18 06:00] metoprolol tartrate 25 mg tablet 25 mg PO DAILY 02/25/15 [History Last Taken 01/07/18 06:00] famotidine 40 mg tablet 40 mg PO DAILY 04/11/19 [History Last Taken Unknown] paroxetine HCl 20 mg tablet 20 mg PO DAILY 04/11/19 [History Last Taken Unknown] levothyroxine 100 mcg tablet 100 mcg PO DAILY Hypothyroidism 02/12/23 [History Last Taken Unknown] lisinopril 5 mg tablet 5 mg PO DAILY HTN 02/12/23 [History Last Taken Unknown] metoprolol succinate 25 mg tablet,extended release 24 hr 25 mg PO DAILY HTN 02/12/23 [History Last Taken Unknown] omeprazole 20 mg capsule,delayed release 20 mg PO DAILY GERD 02/12/23 [History Last Taken Unknown] paroxetine HCl 20 mg tablet 20 mg PO DAILY Anxiety/depression 02/12/23 [History Last Taken Unknown] simvastatin 40 mg tablet 40 mg PO DAILY HLD 02/12/23 [History Last Taken Unknown] lisinopril 10 mg tablet 10 mg PO DAILY 06/01/23 [History Last Taken Unknown] Allergy/AdvReac Type Severity Reaction Status Date / Time clopidogrel bisulfate AdvReac Severe Itching Verified 07/04/23 21:19 [From Plavix] Family History Father Diabetes CAD (coronary artery disease) Heart disease Hypertension Dementia Parkinson disease Mother CAD (coronary artery disease) Heart disease Hypertension Thyroid disorder CVA (cerebral vascular accident) Dementia Mother CAD (coronary artery disease) Heart disease Hypertension Father CAD (coronary artery disease) Heart disease Hypertension Surgical History H/O colonoscopy H/O esophagogastroduodenoscopy History of coronary artery stent placement History of inguinal hernia repair History of left inguinal hernia repair Hx of CABG Social History household members: none Smoking Status: Former smoker quit date: 10/31/08 pack-years: 40 Tobacco: How many years used: 40 Electronic Cigarette Use: not used how long ago did patient quit smoking: Quit 2007, smoked 1 ppd since teen. second hand exposure: Yes quit status: quit date established counseling given: provider counseling alcohol intake: former details: Former EtOH abuse, sober since ~ 2007. substance use type: marijuana ROS ROS ED Constitutional Constitutional ED: Reports chills, fever(s), subjective and sweats; Denies weight loss Eyes Eyes: Denies blurry vision, change in vision or diplopia ENT ENT ED: Reports sore throat; Denies ear pain or rhinorrhea Cardiovascular Cardiovascular: Denies chest pain, orthopnea, palpitations or paroxysmal nocturnal dyspnea Respiratory/Chest Respiratory/Chest: Reports cough; Denies dyspnea, dyspnea on exertion, orthopnea or paroxysmal nocturnal dyspnea Gastrointestinal Gastrointestinal: Reports nausea and vomiting; Denies abdominal pain or melena Genitourinary Genitourinary ED: Denies dysuria, hematuria or urinary frequency Musculoskeletal Musculoskeletal: Denies arthralgias, back pain or myalgias Integumentary Denies abscess, Abrasions or rash Neurologic Neurologic: Denies headache(s), paresthesias or weakness Psychiatric Psychiatric: Denies anxiety Endocrine Endocrinology: Denies cold intolerance or heat intolerance Hematologic/Lymphatic Hematologic/Lymphatic: Reports systems reviewed and no addt'l complaints, except as documented EXAM Physical Exam Const Vital Signs: 07/04/23 21:19 07/04/23 22:20 07/04/23 22:20 Temperature 98.3 F 98.7 F Temperature Source Temporal Oral Pulse Rate 91 81 Respiratory Rate 16 26 H Respiratory Pattern Normal Blood Pressure 131/85 H 156/89 H Blood Pressure Mean 100 111 Pulse Ox 98 97 Oxygen Delivery Method Room Air Positive well developed and cachectic Constitutional Narrative: Patient appears ill. He also appears pale. General Appearance ED: well developed, cachectic and pallor; Negative for cyanotic, diaphoretic or NAD Nutritional Appearance: cachectic HEENT Reports dry mucous membranes HEENT Narrative: There is brown appearing possibly coffee-ground material roof of his mouth and lips. Mouth ED: Yes dry mucous membranes Mouth: dry mucous membranes Eyes PERRL and EOMs intact bilaterally General Eye ED: Yes pale conjunctiva; Negative for scleral icterus Neck no lymphadenopathy, supple and no JVD Neck Narrative: Trachea is midline. There is no inspiratory expiratory stridor. Chest Wall inspection of chest normal and palpation of chest normal Chest Narrative: Patient has a Ashby catheter noted right subclavian region. Resp normal respiratory effort and No clear to auscultation bilaterally Effort and Inspection: Negative for retractions Auscultation: rales bilateral base Cardio regular rate, regular rhythm, S1 normal heart sound, S2 normal heart sound and no murmurs GI normal to inspection, nondistended, normoactive bowel sounds, non-tender, non- distended and hepatosplenomegaly Back/Spine no CVA tenderness Extremity normal to inspection Neuro oriented x3, CN's II-XII intact bilaterally and no sensory deficits noted Sensorium / Orientation: alert Psych mental status grossly normal Skin no wounds and No skin turgor normal General Skin Exam: pallor; Negative for elasticity normal or jaundice MDM MDM MDM Narrative Medical decision making narrative: With history of pancytopenia temperature of approximately 100 with shaking chills need to evaluate for infectious cause. Will obtain CBC to assess white count as well as H&H and platelet count. Comprehensive metabolic panel was obtained to assess electrolytes, no for an, to determine if there is any evidence of endorgan dysfunction. Lactate was also History & Record Review Additional record(s) reviewed:: Prior labs Lab Data Lab results narrative: Patient has pancytopenia with a white count of 300. Neutrophils were not repeat. H&H is 7.0 19.4. Platelet counts 12. Comprehensive metabolic panel reveals elevated BUN to creatinine ratio with a BUN of 16 and creatinine 0.6. Glucose is elevated 179 with normal CO2 and anion gap. Alkaline phosphatase is slightly elevated. Patient has acute on chronic anemia. Platelet count is much lower than baseline. Labs: Laboratory Results - last 24 hr 07/04/23 07/04/23 22:20 22:20 WBC 0.3 L* Corrected WBC MARKETING CAMPAIGN ANALYST RBC 2.38 L Hgb 7.0 L Hct 19.4 L MCV 81.5 MCH 29.4 MCHC 36.1 H RDW Std Deviation 38.7 RDW Coeff of Eva 13.0 Plt Count 12 L* MPV 8.3 Immature Gran % (Auto) MARKETING CAMPAIGN ANALYST Neut % (Auto) Not Reportable Lymph % (Auto) MARKETING CAMPAIGN ANALYST Adams % (Auto) MARKETING CAMPAIGN ANALYST Eos % (Auto) MARKETING CAMPAIGN ANALYST Baso % (Auto) MARKETING CAMPAIGN ANALYST Absolute Lymphs (auto) MARKETING CAMPAIGN ANALYST Total Counted MARKETING CAMPAIGN ANALYST Neutrophils % (Manual) MARKETING CAMPAIGN ANALYST Band Neutrophils % MARKETING CAMPAIGN ANALYST Lymphocytes % (Manual) MARKETING CAMPAIGN ANALYST Monocytes % (Manual) MARKETING CAMPAIGN ANALYST Eosinophils % (Manual) MARKETING CAMPAIGN ANALYST Basophils % (Manual) MARKETING CAMPAIGN ANALYST Metamyelocytes % MARKETING CAMPAIGN ANALYST Myelocytes % MARKETING CAMPAIGN ANALYST Promyelocytes % MARKETING CAMPAIGN ANALYST Blast Cells % MARKETING CAMPAIGN ANALYST Plasma Cell % (Manual) MARKETING CAMPAIGN ANALYST Other Cells % MARKETING CAMPAIGN ANALYST Nucleated RBC % MARKETING CAMPAIGN ANALYST Nucleated RBCs/100 WBC MARKETING CAMPAIGN ANALYST Differential Comment MARKETING CAMPAIGN ANALYST Diff Path Review MARKETING CAMPAIGN ANALYST Hypersegmented Neuts MARKETING CAMPAIGN ANALYST Atypical Lymphocytes MARKETING CAMPAIGN ANALYST Reactive Lymphocytes MARKETING CAMPAIGN ANALYST Smudge Cells MARKETING CAMPAIGN ANALYST Toxic Granulation MARKETING CAMPAIGN ANALYST Toxic Vacuolation MARKETING CAMPAIGN ANALYST Dohle Bodies MARKETING CAMPAIGN ANALYST Tiny Rods MARKETING CAMPAIGN ANALYST Platelet Estimate MARKETING CAMPAIGN ANALYST Plt Morphology Comment MARKETING CAMPAIGN ANALYST RBC Morphology MARKETING CAMPAIGN ANALYST MARKETING CAMPAIGN ANALYST Polychromasia MARKETING CAMPAIGN ANALYST Hypochromasia MARKETING CAMPAIGN ANALYST Poikilocytosis MARKETING CAMPAIGN ANALYST Basophilic Stippling MARKETING CAMPAIGN ANALYST Anisocytosis MARKETING CAMPAIGN ANALYST Microcytosis MARKETING CAMPAIGN ANALYST Macrocytosis MARKETING CAMPAIGN ANALYST Spherocytes MARKETING CAMPAIGN ANALYST Sickle Cells MARKETING CAMPAIGN ANALYST Target Cells MARKETING CAMPAIGN ANALYST Tear Drop Cells MARKETING CAMPAIGN ANALYST Ovalocytes MARKETING CAMPAIGN ANALYST Stomatocytes MARKETING CAMPAIGN ANALYST [place] Bodies MARKETING CAMPAIGN ANALYST [place] Cells MARKETING CAMPAIGN ANALYST Bite Cells MARKETING CAMPAIGN ANALYST Crenated Cell MARKETING CAMPAIGN ANALYST Acanthocytes (Spur) MARKETING CAMPAIGN ANALYST Rouleaux MARKETING CAMPAIGN ANALYST Schistocytes MARKETING CAMPAIGN ANALYST Sodium 131 L Potassium 2.8 L Chloride 98 Carbon Dioxide 24.0 Anion Gap 9 BUN 16 Creatinine 0.60 L Estim Creat Clear Calc 57.01 Est GFR (MDRD) Af Amer 173 Est GFR (MDRD) Non-Af 143 BUN/Creatinine Ratio 26.7 H Glucose 179 H Lactic Acid 1.6 Calcium 8.7 Total Bilirubin 1.10 H AST 17 ALT 31 Alkaline Phosphatase 172 H Total Protein 6.8 Albumin 3.0 L Globulin 3.8 Albumin/Globulin Ratio 0.8 L Radiography Chest X-Ray - ED: 1 View and Read by ED Physician (Independently reviewed and interpreted by me at 2318 as chronic changes with hyperaeration and there is a new Ashby catheter right subclavian that was not noted February 2023. There are no acute findings. Cardiac silhouette and size unremarkable. Osseous structures are.) Diagnostic Testing: Clinical Impression(s) from Imaging Studies Chest X-Ray 07/04/23 22:55 IMPRESSION: Air trapping as can be seen with COPD change. Otherwise, stable chest with no acute disease. Electronically Signed: August Varela MD at 23:24 EDT Reading Location ID and State: [facility] / [place] Tel , Service support , Rhythm Strip Rhythm Strip: Sinus Rhythm Rate: 88 Ectopy: None EKG Initial EKG: Attestation: I personally reviewed and interpreted this EKG as follows: Interpretation: Sinus Rhythm (Rate is 77. [place] interval is 162 ms. Cures duration 94 ms for QT duration 402 ms. [place] is normal. There is evidence to suggest LVH. There is no acute ischemia noted.) Management Discussion w/another healthcare provider: Hospitalist (Dr. Lopez hospitalist), [facility] (Dr. Morelos [facility] upholstery department supervisor/oncologist for the [facility]) and Other (Transfer center [facility]) Treatment and Re-Evaluation :: With concern for GI bleed and platelet count of 12,000 will treat with IV Protonix. Since he has hyponatremia with shaking chills blood cultures were obtained he was treated with Zosyn and vancomycin since he does have a Ashby catheter noted on the right. This may represent line sepsis. NG was not placed to see if he is actively bleeding since he has thrombocytopenia and concern if he were to have iatrogenic nosebleed. Hospitalist requests I speak with Dr. Morelos is on-call for Dr. Benny Ascencio. He is concerned patient is relapsing and needs to be transferred to [facility] for treatment. The inspecting machine adjuster was asked to contact the transfer line for transfer. Critical Care Time Critical Care Time: Yes Critical care time (excluding procedures): 30-74 minutes (34), Including time spent: (History, physical, documentation, review of prior records, interpretation laboratory results initiation of therapy), Discussing w/Patient &/or Family/Security Assessor, Discussing w/Consultants (Hospitalist, oncologist, transfer center) and Arranging Admission or Transfer Discharge Plan Triage Chief Complaint: General Illness ED Provider: Ger Roberson Dx/Rx/DC Orders Clinical Impression: AML (acute myeloid leukemia) in relapse, Neutropenia, Thrombocytopenia, Acute on chronic anemia, Acute hypokalemia, Hyponatremia, Acute GI bleeding Prescriptions: No Action levothyroxine 100 MCG tablet 100 mcg PO DAILY metoprolol tartrate 25 MG tablet 25 mg PO DAILY famotidine 40 MG tablet 40 mg PO DAILY paroxetine HCl 20 MG tablet 20 mg PO DAILY simvastatin 40 mg tablet 40 mg PO DAILY levothyroxine 100 mcg tablet 100 mcg PO DAILY paroxetine HCl 20 mg tablet 20 mg PO DAILY omeprazole 20 mg capsule,delayed release(DR/EC) 20 mg PO DAILY lisinopril 5 mg tablet 5 mg PO DAILY metoprolol succinate 25 mg tablet extended release 24 hr 25 mg PO DAILY lisinopril 10 mg tablet 10 mg PO DAILY Primary Care Provider: Care Physician,No Primary Referrals: Care Physician,No Primary [Primary Care Provider] - Disposition Disposition: Acute Care Hospital Discharge Location: [facility]
[2023-07-05] VITALS (12 sets, daily range): BP systolic 120–161; BP diastolic 62–84; PULSE 63–78; RESP 16–40; TEMP 36.2–37.5; O2SAT 94–100; BMI 17.6
[2023-07-05 00:09] LABS: Lymphocyte % 65.4 % (19-41); Monocyte% 7.7 % (0-10); Neutrophil # 0.05 X10^3/uL (2.7-7.7); Neutrophil % 19.2 % (47-70)
[2023-07-05 00:10] LABS: Lymphocyte # 0.17 X10^3/ul (0.83-4.51); Monocyte# 0.02 X10^3/uL
[2023-07-05 00:12] LABS: Ovalocyte 1+; Platelet Estimate MKD DEC (ADEQ)
[2023-07-05 00:14] LABS: Differential Comment SCANNED
[2023-07-05 00:29] LABS: Color, Urine Yellow (Yellow); Glucose, Dipstick Normal (Normal); Ketone-Dipstick 50 mg/dl (Negative); Leukocyte Esterase-Dipstick 25 /ul (Negative); Nitrite-Dipstick Negative (Negative); Occult Blood-Urine 250 /ul (Negative); Protein-Dipstick 100 mg/dl (Negative); Urine Clarity Clear (Clear); Urine Urobilinogen 8 mg/dl (Normal)
[2023-07-05 00:32] LABS: Urine Bilirubin Dipstick 1 mg/dL (Negative)
[2023-07-05 00:37] LABS: Bacteria 2+ /hpf (None Seen); Hyaline Cast 0-5 SEEN /lpf (0-5); Mucous, Urine 2+ /hpf (<or=2+); Red Blood Cells-Urine 0-5 SEEN /hpf (0-5); White Blood Cells 0-5 SEEN /hpf (0-5)
--- NOTE | 2023-07-05 00:55 | NURSING ---
ok to dc sepsis screening. per dr graham
[2023-07-05 01:32] LABS: International Normalized Ratio 1.2; Prothrombin Time (Protime)PT. 15.4 SECONDS (11.7-14.9)
[2023-07-05 02:42] LABS: Fibrinogen 667 mg/dl (203-444)
[2023-07-05] MEDS: Ondansetron 4 MG/2 ML Vial IV ×3 (07:29→23:38)
--- NOTE | 2023-07-05 08:40 | PCM.HP.STD ---
HPI - General General Date of Admission: 07/05/23 Date of Service: 07/05/23 Chief Complaint: General malaise HPI Narrative CHENCHO MCKEON, is a 67 M with AML, history of tobacco use, cervical radiculopathy, hypertension, pancytopenia, hypothyroidism who presented to [facility] 07/04/2023 for about 1 day of vomiting streaked with blood, diarrhea, shortness of breath and dizziness and cold sweats. In the ED his white blood cell count was found to be 0.3, hemoglobin 7.0 with a platelet count of 12 down from 42 2 days ago, INR 1.2 fibrinogen 667 with a sodium of 131, potassium 2.8 and total bili 1.1. He was seen here last month for similar presentation was transferred to [facility]. In the ED he was given IV PPI and antibiotics including [facility] contacted and Dr. Teresa with the oncology service accepted patient. Due to patient being in ED for 6 hours hospitalist was requested to admit while patient is pending bed. Patient evaluated at bedside when he reports feeling about the same, still having some nausea, reported again the vomiting before coming in and said the blood was streaked in an interval minimally he would spit some blood out as well, had diarrhea for a day with no blood in his stool. Shortness of breath and cough with some phlegm. Also has slight headache, some stuffy nose, abdominal pain, back itching. Also was having cold sweats at home but did not check his temperature and lost 4 pounds with poor appetite in the past 1 week. Anxious to get upstairs and out of the ED and wants to go to the bathroom. No other acute complaints. [facility] Medical History AML (acute myeloid leukemia) Anemia Anemia Anxiety and depression Anxiety and depression Bilateral shoulder pain Cervical myofascial strain Cervical radiculopathy Chest pain Coronary artery disease Depression Dysphagia Encounter for screening for malignant neoplasm of lung in former smoker who quit in past 15 years with 30 pack year history or greater Former smoker GERD (gastroesophageal reflux disease) GERD (gastroesophageal reflux disease) History of alcohol abuse History of heart attack History of tobacco use HLD (hyperlipidemia) HTN (hypertension) Hypercholesterolemia Hypertension Hypothyroid Hypothyroidism Myocardial infarct Home Medications levothyroxine 100 mcg tablet 100 mcg PO DAILY 02/25/15 [History Last Taken 01/07/18 06:00] metoprolol tartrate 25 mg tablet 25 mg PO DAILY 02/25/15 [History Last Taken 01/07/18 06:00] famotidine 40 mg tablet 40 mg PO DAILY 04/11/19 [History Last Taken Unknown] paroxetine HCl 20 mg tablet 20 mg PO DAILY 04/11/19 [History Last Taken Unknown] levothyroxine 100 mcg tablet 100 mcg PO DAILY Hypothyroidism 02/12/23 [History Last Taken Unknown] lisinopril 5 mg tablet 5 mg PO DAILY HTN 02/12/23 [History Last Taken Unknown] metoprolol succinate 25 mg tablet,extended release 24 hr 25 mg PO DAILY HTN 02/12/23 [History Last Taken Unknown] omeprazole 20 mg capsule,delayed release 20 mg PO DAILY GERD 02/12/23 [History Last Taken Unknown] paroxetine HCl 20 mg tablet 20 mg PO DAILY Anxiety/depression 02/12/23 [History Last Taken Unknown] simvastatin 40 mg tablet 40 mg PO DAILY HLD 02/12/23 [History Last Taken Unknown] lisinopril 10 mg tablet 10 mg PO DAILY 06/01/23 [History Last Taken Unknown] Allergy/AdvReac Type Severity Reaction Status Date / Time clopidogrel bisulfate AdvReac Severe Itching Verified 07/04/23 21:19 [From Plavix] Family History Father Diabetes CAD (coronary artery disease) Heart disease Hypertension Dementia Parkinson disease Mother CAD (coronary artery disease) Heart disease Hypertension Thyroid disorder CVA (cerebral vascular accident) Dementia Mother CAD (coronary artery disease) Heart disease Hypertension Father CAD (coronary artery disease) Heart disease Hypertension Surgical History H/O colonoscopy H/O esophagogastroduodenoscopy History of coronary artery stent placement History of inguinal hernia repair History of left inguinal hernia repair Hx of CABG Social History household members: none Smoking Status: Former smoker quit date: 10/31/08 pack-years: 40 Tobacco: How many years used: 40 Electronic Cigarette Use: not used how long ago did patient quit smoking: Quit 2007, smoked 1 ppd since teen. second hand exposure: Yes quit status: quit date established counseling given: provider counseling alcohol intake: former details: Former EtOH abuse, sober since ~ 2007. substance use type: marijuana ROS ROS Narrative General: Cold sweats, poor p.o. intake with 4 pound weight loss in past 1 week HENT: Stuffy nose, somewhat of a headache, denies sore throat EYES: Denies changes in vision Resp: A little bit short of breath and coughing up some mucus Cardiac: Denies chest pain GI: Some abdominal tenderness, nausea and vomiting streaked with blood, diarrhea : Reports red-tinged urine Extremity: Denies swelling MSK: Generalized weakness Neuro: Denies any numbness/tingling Heme: Spitting out blood Skin: back itching Psychiatric: No complaints voiced Vital Signs Vital Signs Vital Signs: 07/04/23 21:19 07/04/23 22:20 07/04/23 22:20 Temperature 98.3 F 98.7 F Temperature Source Temporal Oral Pulse Rate 91 81 Respiratory Rate 16 26 H Respiratory Pattern Normal Blood Pressure 131/85 H 156/89 H Blood Pressure Mean 100 111 Pulse Ox 98 97 Oxygen Delivery Method Room Air 07/04/23 23:00 07/05/23 00:00 07/05/23 02:13 Temperature 97.9 F 98 F Temperature Source Oral Oral Pulse Rate 78 76 78 Respiratory Rate 35 H 40 H 20 H Respiratory Pattern Blood Pressure 147/82 H 161/82 H 139/69 H Blood Pressure Mean 103 108 92 Pulse Ox 94 94 97 Oxygen Delivery Method Room Air Room Air 07/05/23 04:00 07/05/23 06:00 Temperature Temperature Source Pulse Rate 72 73 Respiratory Rate 16 16 Respiratory Pattern Blood Pressure 149/71 H 146/69 H Blood Pressure Mean 97 94 Pulse Ox 99 99 Oxygen Delivery Method Weight Weight: 55.474 kg Body Mass Index (BMI) 18.6 Results Lab / Micro Data 07/04/23 22:20 07/04/23 22:20 Labs: Laboratory Results - last 24 hr 07/04/23 22:20: WBC 0.3 L*, Corrected WBC VISCOSITY INSPECTOR, RBC 2.38 L, Hgb 7.0 L, Hct 19.4 L, MCV 81.5, MCH 29.4, MCHC 36.1 H, RDW Std Deviation 38.7, RDW Coeff of Eva 13.0, Plt Count 12 L*, MPV 8.3, Immature Gran % (Auto) 7.700 H, Neut % (Auto) 19.2 L, Lymph % (Auto) 65.4 H, [place] % (Auto) 7.7, Eos % (Auto) 0.0, Baso % (Auto) 0.0, Absolute Neuts (auto) TNP, Absolute Lymphs (auto) TNP, Total Counted VISCOSITY INSPECTOR, Neutrophils % (Manual) VISCOSITY INSPECTOR, Band Neutrophils % VISCOSITY INSPECTOR, Lymphocytes % (Manual) VISCOSITY INSPECTOR, Monocytes % (Manual) VISCOSITY INSPECTOR, Eosinophils % (Manual) VISCOSITY INSPECTOR, Basophils % (Manual) VISCOSITY INSPECTOR, Metamyelocytes % VISCOSITY INSPECTOR, Myelocytes % VISCOSITY INSPECTOR, Promyelocytes % VISCOSITY INSPECTOR, Blast Cells % VISCOSITY INSPECTOR, Plasma Cell % (Manual) VISCOSITY INSPECTOR, Other Cells % VISCOSITY INSPECTOR, Nucleated RBC % VISCOSITY INSPECTOR, Nucleated RBCs/100 WBC VISCOSITY INSPECTOR, Differential Comment SCANNED, Diff Path Review May foll, Hypersegmented Neuts VISCOSITY INSPECTOR, Atypical Lymphocytes VISCOSITY INSPECTOR, Reactive Lymphocytes VISCOSITY INSPECTOR, Smudge Cells VISCOSITY INSPECTOR, Toxic Granulation VISCOSITY INSPECTOR, Toxic Vacuolation VISCOSITY INSPECTOR, Dohle Bodies VISCOSITY INSPECTOR, Tiny Rods VISCOSITY INSPECTOR, Platelet Estimate MKD DEC, Plt Morphology Comment VISCOSITY INSPECTOR, RBC Morphology VISCOSITY INSPECTOR 07/04/23 22:20: RBC Morphology VISCOSITY INSPECTOR, Polychromasia VISCOSITY INSPECTOR, Hypochromasia VISCOSITY INSPECTOR, Poikilocytosis VISCOSITY INSPECTOR, Basophilic Stippling VISCOSITY INSPECTOR, Anisocytosis VISCOSITY INSPECTOR, Microcytosis VISCOSITY INSPECTOR, Macrocytosis VISCOSITY INSPECTOR, Spherocytes VISCOSITY INSPECTOR, Sickle Cells VISCOSITY INSPECTOR, Target Cells VISCOSITY INSPECTOR, Tear Drop Cells VISCOSITY INSPECTOR, Ovalocytes 1+, Stomatocytes VISCOSITY INSPECTOR, [place] Bodies VISCOSITY INSPECTOR, Kimberly Cells VISCOSITY INSPECTOR, Bite Cells VISCOSITY INSPECTOR, Crenated Cell VISCOSITY INSPECTOR, Acanthocytes (Spur) VISCOSITY INSPECTOR, Rouleaux VISCOSITY INSPECTOR, Schistocytes VISCOSITY INSPECTOR, PT 15.4 H, INR 1.2, APTT 51.0 H, Fibrinogen 667 H, Sodium 131 L, Potassium 2.8 L, Chloride 98, Carbon Dioxide 24.0, Anion Gap 9, BUN 16, Creatinine 0.60 L, Estim Creat Clear Calc 57.01, Est GFR (MDRD) Af Amer 173, Est GFR (MDRD) Non-Af 143, BUN/Creatinine Ratio 26.7 H, Glucose 179 H, Lactic Acid 1.6, Calcium 8.7, Total Bilirubin 1.10 H, AST 17, ALT 31, Alkaline Phosphatase 172 H, Total Protein 6.8, Albumin 3.0 L, Globulin 3.8, Albumin/Globulin Ratio 0.8 L 07/04/23 23:25: Urine Color Yellow, Urine Clarity Clear, Urine pH 6.0, Ur Specific Walker 1.020, Urine Protein 100 H, Urine Glucose (UA) Normal, Urine Ketones 50 H, Urine Occult Blood 250 H, Urine Nitrite Negative, Urine Bilirubin 1 H, Urine Urobilinogen 8 H, Ur Leukocyte Esterase 25 H, Urine RBC 0-5 SEEN, Urine WBC 0-5 SEEN, Ur Squamous Epith Cells Not Reportable, Urine Bacteria 2+, Hyaline Casts 0-5 SEEN, Urine Mucus 2+ 07/05/23 00:42: Blood Type A POSITIVE, Antibody Screen NEGATIVE Rhythm Strip Rhythm Strip: Sinus Rhythm Rate: 88 Ectopy: None Radiology Impression Chest X-Ray 07/04/23 22:55 IMPRESSION: Air trapping as can be seen with COPD change. Otherwise, stable chest with no acute disease. Electronically Signed: August Varela MD at 23:24 EDT , Assessment & Plan Assessment/Plan (1) AML (acute myeloid leukemia) in relapse: (2) Acute hypokalemia: (3) Pancytopenia: (4) Thrombocytopenia: (5) Hyponatremia: PLAN: Plan #AML/pancytopenia -History of receiving chemo for this -Patient following with Dr. Teresa at [facility] for his AML and also sees Dr. Ascencio locally -Patient came in due to a constellation of physical complaints and was noted to have white blood cell count of 0.3 with hemoglobin of 7, noted to be 8.2 on 07/02 and platelets are 12 down from 42 on 07/02 -Patient accepted to [facility] and awaiting bed assignment so hospitalist admitted in interim -Patient to receive 1 unit of platelets for guidance of [facility] physician #Hematemesis -Has had blood streaked in his sputum -We will repeat hemoglobin, given he is received fluids suspect will be lower and he may meet threshold for transfusion -At this time vitals are stable, has had this previously when he was transferred to [facility] last month as well ultimately may need endoscopy -We will place on Protonix IV -Do not think patient needs emergent scope prior to transfer but will monitor hemoglobin #Cold sweats, fatigue, weight loss, malaise, vomiting and diarrhea -Concerned there could be underlying infection and was given Vanco and Zosyn in ED -We will continue this, blood cultures also obtained -UA with 25 leuk esterase, 2+ bacteria, ketones, occult blood and protein with negative nitrate but did have urobilinogen -Given his diarrhea in addition to shortness of breath and cough we will check respiratory panels and stool panels -Fluids and supportive care #Hypokalemia -Replace and will recheck in the afternoon #Chronic hyponatremia -Continue to monitor #Hypothyroidism -Continue Synthroid #DVT ppx: SCDs Kanchan Carranza MD Time spent in the patient's overall evaluation,decision-making process, review of diagnostic data, adjustment of management, discussion with other providers, nursing nursing and ancillary staff involved in patient's care documentation, 56 minutes Charges/Coding Visit Charges Inpatient E&M: 02945 Init Hosp L2
--- NOTE | 2023-07-05 08:59 | ED.RN ---
PATIENT DOES NOT HAVE MEDICATION LIST, NOR DOES HE KNOW WHAT MEDICATIONS HE TAKES. HAS ATTEMPTED TO CONTACT FAMILY FOR THEM TO RELAY MEDICATIONS BUT HAS BEEN UNSUCCESSFUL IN ED.
--- NOTE | 2023-07-05 09:22 | PCM.RX.CS ---
Consult Antibiotic Management Pharmacy has been consulted to manage selected antiobiotic: Vancomycin Type of Intervention Type of Consult: New start Suspected Infection Suspected Infection: Other (UNKNOWN/EMPIRIC) Prior Doses of Antibiotics Prior Doses of Antibiotics Received/Current Regimen: Vancomycin 1500 mg IV x 1 given 07/05/23 @ 0117 Labs Labs: Sodium 131 mmol/L (136-145) L 07/04/23 22:20 Potassium 2.8 mmol/L (3.5-5.1) L 07/04/23 22:20 Chloride 98 mmol/L (98-107) 07/04/23 22:20 Carbon Dioxide 24.0 mmol/L (21.0-32.0) 07/04/23 22:20 Anion Gap 9 (5-15) 07/04/23 22:20 BUN 16 mg/dL (7-18) 07/04/23 22:20 Creatinine 0.60 mg/dL (0.70-1.30) L 07/04/23 22:20 Est GFR (MDRD) Af Amer 173 mL/min (>60) 07/04/23 22:20 Est GFR (MDRD) Non-Af 143 mL/min (>60) 07/04/23 22:20 BUN/Creatinine Ratio 26.7 RATIO (10-20) H 07/04/23 22:20 Glucose 179 mg/dL (74-106) H 07/04/23 22:20 Dosing Weight Weight used for dosin.5 kg Estimated Creatinine Clearance Estimated Creatinine Clearance: 57 ml/min Goal Trough Goal Trough: 15-20 mcg/mL Pharmacy Plan for Drug Dosing Pharmacy Plan for Drug Dosing: Vancomycin 1500 mg IV x 1 given in ER, begin dosing with Vancomycin 500 mg IV Q12H starting at 1300 on 07/05/23. Trough prior to 4th dose. Pharmacy Service will continue to monitor and adjust dosing as required. Follow-Up Labs Follow-Up Labs: Trough: Vancomycin Date/Time Labs Ordered Labs to be done on [date and time ordered]: 07/06 @ 1230
[2023-07-05 09:27] LABS: Hematocrit 21.1 % (40-54); Hemoglobin 7.6 g/dL (13.0-16.5); Mean Corpuscular Hgb 29.8 pg (27.0-32.0); Mean Corpuscular Volume 82.7 fL (80-94); POSITIVE COUNT YES; POSITIVE DIFFERENTIAL YES; POSITIVE MORPHOLOGY YES; Platelet Count 9 K/mm3 (150-450); RBC Distribution Width CV 13.2 % (11.6-14.6); RBC Distribution Width SD 39.4 fl (35.1-43.9); Red Blood Count 2.55 M/mm3 (4.6-6.2); White Blood Count 0.3 K/mm3 (4.4-11.0)
[2023-07-05 09:29] LABS: Scan Indicated on CBC? Y/N YES- FLAGS NOTED
[2023-07-05 09:38] LABS: International Normalized Ratio 1.3; Prothrombin Time (Protime)PT. 15.9 SECONDS (11.7-14.9)
[2023-07-05 09:49] LABS: ALB/GLOB Ratio 0.7 RATIO (0.9-2.4); AST(SGOT) 16 U/L (15-37); Alanine Aminotransfer ALT/SGPT 26 U/L (16-61); Albumin, Serum 2.7 g/dL (3.2-5.0); Alkaline Phosphatase 153 U/L (45-117); Anion Gap 8 (5-15); BUN 14 mg/dL (7-18); BUN/Creat Ratio 21.1 RATIO (10-20); Calcium,Total 8.6 mg/dL (8.5-10.1); Chloride 102 mmol/L (98-107); Creatinine, Serum 0.66 mg/dL (0.70-1.30); EST Glomerular Filtration Rate 127 mL/min (>60); Est Glom Filt Rate - Afr Amer 154 mL/min (>60); Estimated Creatinine Clearance 53.96 ml/min; Globulin 3.9 g/dL (2.2-4.2); Glucose 134 mg/dL (74-106); Magnesium 1.8 mg/dL (1.6-2.6); Potassium 2.7 mmol/L (3.5-5.1); Protein, Total 6.6 g/dL (6.4-8.2); Sodium Level 135 mmol/L (136-145)
[2023-07-05] MEDS: Potassium Chloride 20mEq/100mL 20 MEQ/100 ML IV.SOLN. 50 MEQ IV BOLUS (10:49)
[2023-07-05] MEDS: 0.9% Normal Saline 1,000 ML 75 ML IV ×2 (10:49→23:38)
[2023-07-05] MEDS: Levothyroxine 100 MCG Tablet PO (11:12)
[2023-07-05] MEDS: Metoprolol(XL)Succ 25 MG Tablet PO (11:12)
[2023-07-05] MEDS: 0.9% Saline Lock 10 ML Syringe IV (11:31)
[2023-07-05] MEDS: Vancomycin IV 500 MG/100 ML BAG 100 MG IV ×2 (13:11→23:39)
[2023-07-05 13:26] LABS: Anion Gap 6 (5-15); BUN 14 mg/dL (7-18); BUN/Creat Ratio 23.4 RATIO (10-20); Calcium,Total 8.2 mg/dL (8.5-10.1); Chloride 103 mmol/L (98-107); EST Glomerular Filtration Rate 143 mL/min (>60); Est Glom Filt Rate - Afr Amer 173 mL/min (>60); Estimated Creatinine Clearance 53.96 ml/min; Glucose 119 mg/dL (74-106); Sodium Level 134 mmol/L (136-145)
[2023-07-05] MEDS: Ensure Plus High Protein 120 ML LIQUID PO (14:16)
[2023-07-05] MEDS: Potassium Chloride 20mEq/100mL 20 MEQ/100 ML IV.SOLN. 100 MEQ IV BOLUS ×2 (15:23→17:24)
[2023-07-05] MEDS: Acyclovir 200 MG Capsule 400 MG PO ×2 (15:28→21:09)
[2023-07-05] MEDS: Atorvastatin Calcium 20 MG Tablet PO (21:09)
[2023-07-06] VITALS (10 sets, daily range): BP systolic 117–149; BP diastolic 63–85; PULSE 54–65; RESP 16–18; TEMP 36.4–37.3; O2SAT 97–100
[2023-07-06] MEDS: Levothyroxine 100 MCG Tablet PO (03:16)
[2023-07-06] MEDS: Acetaminophen 325 MG Tablet 650 MG PO ×2 (03:16→09:33)
[2023-07-06 06:17] LABS: Absolute Lymphocyte Count 0.11 X10^3/uL (0.83-4.51); Hematocrit 17.8 % (40-54); Lymphocyte # 0.11 X10^3/ul (0.83-4.51); Lymphocyte % 78.6 % (19-41); Mean Corp Hgb Conc 33.7 g/dL (32-36); Mean Corpuscular Hgb 28.7 pg (27.0-32.0); Mean Corpuscular Volume 85.2 fL (80-94); Mean Platelet Vol. 9.4 fl (6.2-12.0); Monocyte# 0.01 X10^3/uL; Monocyte% 7.1 % (0-10); NRBC Flagged by Analyzer 0 % (0-5); Neutrophil # 0.02 X10^3/uL (2.7-7.7); Neutrophil % 14.3 % (47-70); POSITIVE COUNT YES; POSITIVE DIFFERENTIAL YES; POSITIVE MORPHOLOGY YES; RBC Distribution Width CV 13.2 % (11.6-14.6); RBC Distribution Width SD 40.5 fl (35.1-43.9); Red Blood Count 2.09 M/mm3 (4.6-6.2)
[2023-07-06 06:23] LABS: Differential Indicated SCAN CRITERIA MET; Platelet Count 29 K/mm3 (150-450); White Blood Count 0.1 K/mm3 (4.4-11.0)
[2023-07-06 07:07] LABS: Anion Gap 7 (5-15); BUN 12 mg/dL (7-18); BUN/Creat Ratio 22.8 RATIO (10-20); Chloride 105 mmol/L (98-107); Creatinine, Serum 0.53 mg/dL (0.70-1.30); EST Glomerular Filtration Rate 166 mL/min (>60); Est Glom Filt Rate - Afr Amer 201 mL/min (>60); Estimated Creatinine Clearance 53.96 ml/min; Glucose 114 mg/dL (74-106); Potassium 2.6 mmol/L (3.5-5.1); Sodium Level 137 mmol/L (136-145)
[2023-07-06] MEDS: Ondansetron 4 MG/2 ML Vial IV (08:11)
--- NOTE | 2023-07-06 09:02 | NURSING ---
I spoke with Jyoti at [facility] transfer line she stated they are still waiting on a bed and she also stated she didn't know if it would be today or not.
[2023-07-06 09:10] LABS: Platelet Estimate MKD DEC (ADEQ)
[2023-07-06] MEDS: Potassium Chloride Oral Tablet 20 MEQ 40 MEQ PO ×2 (09:34→14:59)
[2023-07-06] MEDS: Allopurinol 300 MG Tablet PO (09:35)
[2023-07-06] MEDS: Acyclovir 200 MG Capsule 400 MG PO (09:36)
[2023-07-06] MEDS: Metoprolol(XL)Succ 25 MG Tablet PO (09:40)
[2023-07-06] MEDS: POSACONAZOLE 100 MG TABLET.DR 300 MG PO (09:41)
[2023-07-06 09:46] LABS: Pathologist Review Reviewed
[2023-07-06] MEDS: Potassium Chloride 10mEq/100mL 10 MEQ/100 ML IV.SOLN. 100 MEQ IV BOLUS ×2 (10:26→11:53)
[2023-07-06 12:36] LABS: Pathologist Review Reviewed
[2023-07-06 13:04] LABS: Vancomycin, Trough Level 5.5 ug/mL (5.0-15.0)
[2023-07-06 13:07] LABS: Anion Gap 7 (5-15); BUN 14 mg/dL (7-18); BUN/Creat Ratio 21.7 RATIO (10-20); Calcium,Total 7.6 mg/dL (8.5-10.1); Chloride 104 mmol/L (98-107); Creatinine, Serum 0.64 mg/dL (0.70-1.30); EST Glomerular Filtration Rate 131 mL/min (>60); Est Glom Filt Rate - Afr Amer 159 mL/min (>60); Estimated Creatinine Clearance 53.96 ml/min; Glucose 117 mg/dL (74-106); Potassium 3.4 mmol/L (3.5-5.1); Sodium Level 136 mmol/L (136-145)
--- NOTE | 2023-07-06 13:27 | PCM.RX.CS ---
Consult Antibiotic Management Pharmacy has been consulted to manage selected antiobiotic: Vancomycin Type of Intervention Type of Consult: Follow-up Suspected Infection Suspected Infection: Other (EMPIRIC) Prior Doses of Antibiotics Prior Doses of Antibiotics Received/Current Regimen: Vancomycin 500 mg IV given 07/05 @ 1311, 07/05 @ 2339 Labs Labs: Sodium 136 mmol/L (136-145) 07/06/23 12:13 Potassium 3.4 mmol/L (3.5-5.1) L 07/06/23 12:13 Chloride 104 mmol/L (98-107) 07/06/23 12:13 Carbon Dioxide 25.0 mmol/L (21.0-32.0) 07/06/23 12:13 Anion Gap 7 (5-15) 07/06/23 12:13 BUN 14 mg/dL (7-18) 07/06/23 12:13 Creatinine 0.64 mg/dL (0.70-1.30) L 07/06/23 12:13 Est GFR (MDRD) Af Amer 159 mL/min (>60) 07/06/23 12:13 Est GFR (MDRD) Non-Af 131 mL/min (>60) 07/06/23 12:13 BUN/Creatinine Ratio 21.7 RATIO (10-20) H 07/06/23 12:13 Glucose 117 mg/dL (74-106) H 07/06/23 12:13 Vancomycin Trough 5.5 ug/mL (5.0-15.0) 07/06/23 12:13 Microbiology Microbiology: Microbiology 07/04/23 23:25 Urine, Clean Catch Urine Culture - Preliminary Staphylococcus species 07/05/23 15:35 Stool Enteric Bacteriology - Final 07/05/23 11:14 Mucosa - Nasopharyngeal Respiratory Panel (PCR) - Final 07/05/23 09:56 Nasal Secretion SARS-CoV-2 & FLU Antigen (Rapid) - Final Dosing Weight Weight used for dosin.5 kg Estimated Creatinine Clearance Estimated Creatinine Clearance: 54 Goal Trough Goal Trough: 15-20 mcg/mL Pharmacy Plan for Drug Dosing Pharmacy Plan for Drug Dosing: Vancomycin trough today 5.5, will increase dosing to 1250 mg IV Q12H with a trough prior to 4th dose. Pharmacy Service will continue to monitor and adjust dosing as required. Follow-Up Labs Follow-Up Labs: Trough: Vancomycin Date/Time Labs Ordered Labs to be done on [date and time ordered]: 07/08/23 @ 2514
--- NOTE | 2023-07-06 14:16 | DS.PCM_ITS ---
Providers Date of Admission: 07/05/23 Date of Discharge: 07/06/23 Primary Care Physician: No Primary Care Phys Reason For Visit: NEUTROPENIC FEVER W/ THROMBOCYTOPENIA & LEUKOPENIA Diagnosis Discharge Diagnosis (1) AML (acute myeloid leukemia) in relapse: Status: Acute Code(s): C92.02 - Acute myeloblastic leukemia, in relapse (2) Acute hypokalemia: Status: Acute Code(s): E87.6 - Hypokalemia (3) Pancytopenia: Status: Chronic Code(s): D61.818 - Other pancytopenia (4) Thrombocytopenia: Status: Acute Code(s): D69.6 - Thrombocytopenia, unspecified (5) Hyponatremia: Status: Acute Code(s): E87.1 - Hypo-osmolality and hyponatremia Plan #AML/pancytopenia #Hematemesis #Cold sweats, fatigue, weight loss, malaise, vomiting and diarrhea #Hypokalemia #Chronic hyponatremia #Hypothyroidism Medications at Discharge Home Medications levothyroxine 100 mcg tablet 100 mcg PO DAILY Hypothyroidism 02/12/23 lisinopril 5 mg tablet 5 mg PO DAILY HTN 02/12/23 metoprolol succinate 25 mg tablet,extended release 24 hr 25 mg PO DAILY HTN 02/12/23 omeprazole 20 mg capsule,delayed release 20 mg PO DAILY GERD 02/12/23 paroxetine HCl 20 mg tablet 20 mg PO DAILY Anxiety/depression 02/12/23 simvastatin 40 mg tablet 40 mg PO DAILY HLD 02/12/23 acyclovir 400 mg tablet 400 mg PO Q12H cancer 07/05/23 allopurinol 300 mg tablet 300 mg PO DAILY CA 07/05/23 ondansetron HCl 8 mg tablet 8 mg PO TID PRN nausea 07/05/23 posaconazole 100 mg tablet,delayed release 300 mg PO DAILY cancer 07/05/23 tamsulosin 0.4 mg capsule 0.4 mg PO DAILY urination 07/05/23 Hospital Course Summary of Care Provided Minutes Spent on Discharge: 35 Hospital Course: Per HPI: CHENCHO MCKEON, is a 67 M with AML, history of tobacco use, cervical radiculopathy, hypertension, pancytopenia, hypothyroidism who presented to [facility] 07/04/2023 for about 1 day of vomiting streaked with blood, diarrhea, shortness of breath and dizziness and cold sweats. In the ED his white blood cell count was found to be 0.3, hemoglobin 7.0 with a platelet count of 12 down from 42 2 days ago, INR 1.2 fibrinogen 667 with a sodium of 131, potassium 2.8 and total bili 1.1. He was seen here last month for similar presentation was transferred to [facility]. In the ED he was given IV PPI and antibiotics including [facility] contacted and Dr. Teresa with the oncology service accepted patient. Due to patient being in ED for 6 hours hospitalist was requested to admit while patient is pending bed. Patient evaluated at bedside when he reports feeling about the same, still having some nausea, reported again the vomiting before coming in and said the blood was streaked in an interval minimally he would spit some blood out as well, had diarrhea for a day with no blood in his stool. Shortness of breath and cough with some phlegm. Also has slight headache, some stuffy nose, abdominal pain, back itching. Also was having cold sweats at home but did not check his temperature and lost 4 pounds with poor appetite in the past 1 week. Anxious to get upstairs and out of the ED and wants to go to the bathroom. No other acute complaints. INTERVAL HISTORY: Patient received a unit of platelets and also received packed red blood cells, hematemesis began to improve (still only remained streaks) and patient feeling much better with current measures and antibiotics but still generally weak and overall unwell. Patient was pending bed at [facility] and bed received 07/06/2023 Physical Exam Narrative General: Alert, oriented, no apparent distress HEENT: Atraumatic, has some crusting around lips and lips are dry Eyes: Anicteric, normal conjunctiva, extraocular movements grossly intact Neck: Supple Respiratory: Clear to auscultation bilaterally, normal respiratory effort Cardiovascular: Regular rate GI: Soft, nontender, nondistended Extremities: No edema Musculoskeletal: Moving all extremities Neuro: No overt focal neurological deficits Skin: No rashes appreciated Psych: Cooperative Medical Records Data Medical Nutrition Assessment Dietitian: Malnutrition Criteria Met Start: 07/05/23 17:03 Freq: Status: Active Protocol: Document 07/05/23 17:03 ESTEFANIA (Rec: 07/05/23 17:03 ESTEFANIA [id number]) Nutrition Malnutrition Evidence of Malnutrition Exists Yes Malnutrition (severe): Chronic Evidenced By Suboptimal Energy Intake ( Severe),Weight Loss (Severe) Clinical Problem Chronic Disease or Condition Related Malnutrition Etiology severe related to AML Signs/Symptoms as evidenced by pt consuming < 75% of estimated energy needs for >1 month and 13.3lbs (10.3 %) weight loss in 2 months Status Active Problem Recommendation Dietitian Recommendations/Changes Continue Regular diet to optimize oral intakes. RD will order Ensure Pudding and Magic Cup 1x daily to provide supplemental energy. Weight / BMI Weight Weight: 52.5 kg Body Mass Index (BMI) 17.6 ABG / Lab / Microbiology Data 07/06/23 05:45 07/06/23 12:13 Laboratory: Laboratory Results - last 24 hr 07/04/23 22:20: Diff Path Review Reviewed 07/05/23 00:42: Blood Type A POSITIVE, ABO/Rh Cancelled, A1 Subgroup Cancelled, Rho(D) Tech Interpret Cancelled, Antibody Screen NEGATIVE, Crossmatch See Detail 07/05/23 09:17: Diff Path Review Reviewed 07/06/23 05:45: WBC 0.1 L*, RBC 2.09 L, Hgb 6.0 L*, Hct 17.8 L, MCV 85.2, MCH 28.7, MCHC 33.7 D, RDW Std Deviation 40.5, RDW Coeff of Eva 13.2, Plt Count 29 L*, MPV 9.4, Immature Gran % (Auto) 0.000, Neut % (Auto) 14.3 L, Lymph % (Auto) 78.6 H, [place] % (Auto) 7.1, Eos % (Auto) 0.0, Baso % (Auto) 0.0, Absolute Neuts (auto) 0.0 L, Absolute Lymphs (auto) 0.11 L, Nucleated RBC % 0, Differential Comment COMMENT, Diff Path Review May foll, Platelet Estimate MKD DEC, Sodium 137, Potassium 2.6 L*, Chloride 105, Carbon Dioxide 25.0, Anion Gap 7, BUN 12, Creatinine 0.53 L, Estim Creat Clear Calc 53.96, Est GFR (MDRD) Af Amer 201, Est GFR (MDRD) Non-Af 166, BUN/Creatinine Ratio 22.8 H, Glucose 114 H, Calcium 8.0 L 07/06/23 12:13: Sodium 136, Potassium 3.4 L, Chloride 104, Carbon Dioxide 25.0, Anion Gap 7, BUN 14, Creatinine 0.64 L, Estim Creat Clear Calc 53.96, Est GFR (MDRD) Af Amer 159, Est GFR (MDRD) Non-Af 131, BUN/Creatinine Ratio 21.7 H, Glucose 117 H, Calcium 7.6 L, Vancomycin Trough 5.5 Microbiology: Microbiology 07/04/23 23:25 Urine, Clean Catch Urine Culture - Preliminary Staphylococcus species 07/05/23 15:35 Stool Enteric Bacteriology - Final 07/05/23 11:14 Mucosa - Nasopharyngeal Respiratory Panel (PCR) - Final 07/05/23 09:56 Nasal Secretion SARS-CoV-2 & FLU Antigen (Rapid) - Final D/C Instructions Discharge Diet: - (Neutropenic precautions) Meaningful Use Info Meaningful Use Diagnoses (Choose all that apply): None applicable Discharge Plan Admission Admit Date/Time: 07/05/23 08:41 Primary Reason for Your Visit: Malaise, diarrhea, shortness of breath Attending Provider: Kanchan Carranza Primary Care Provider: Care PhysicianTiffany Primary Instructions Patient Instructions: Cancer Overview Additional Instructions / Restrictions: - You will need to your potassium rechecked and you will also need your hemoglobin and platelets rechecked, he received blood today Discharge Orders/Prescriptions Prescriptions: No Action simvastatin 40 mg tablet 40 mg PO DAILY levothyroxine 100 mcg tablet 100 mcg PO DAILY paroxetine HCl 20 mg tablet 20 mg PO DAILY omeprazole 20 mg capsule,delayed release(DR/EC) 20 mg PO DAILY lisinopril 5 mg tablet 5 mg PO DAILY metoprolol succinate 25 mg tablet extended release 24 hr 25 mg PO DAILY acyclovir 400 mg tablet 400 mg PO Q12H Patient Comments: take 1 tablet by mouth twice a day allopurinol 300 mg tablet 300 mg PO DAILY Patient Comments: take 1 tablet by mouth once daily posaconazole 100 mg tablet,delayed release (DR/EC) 300 mg PO DAILY Patient Comments: take 3 tablets by mouth once daily ondansetron HCl 8 mg tablet 8 mg PO TID PRN Patient Comments: take 1 tablet by mouth every 8 hours if needed for nausea / vomiting tamsulosin 0.4 mg capsule 0.4 mg PO DAILY Patient Comments: take 1 capsule by mouth once daily AT THE SAME TIME EACH DAY Referrals / Follow Up: Care Physician,Tiffany Primary [Primary Care Provider] - Disposition Disposition (needs filled in before D/C Order can be placed): Acute Care Hospital Charges/Coding Visit Charges Inpatient E&M: 62308 Disch Hosp >30min
[2023-07-06] MEDS: 0.9 % NaCl (Sterile) Posiflush 10 mL IV ×2 (15:19→15:27)
--- NOTE | 2023-07-06 15:39 | NURSING ---
Report called to SUE Valentin at [facility] [place].
[2023-07-07 12:45] LABS: Pathologist Review Reviewed
== END 2023-07-06 15:40 | disposition short-term general hospital (02) | DRG 834 ==
LOC: ED 07-05 00:10 → PCU 07-05 08:50
PROVIDERS: Emergency Medicine; Admitting Provider Internal Medicine; Emergency Provider Emergency Medicine; Visit Provider Internal Medicine
DX: C92.02 Acute myeloblastic leukemia, in relapse (principal); D61.810 Antineoplastic chemotherapy induced pancytopenia; K92.0 Hematemesis; E87.1 Hypo-osmolality and hyponatremia; K92.2 Gastrointestinal hemorrhage, unspecified; I10 Essential (primary) hypertension; E03.9 Hypothyroidism, unspecified; F10.11 Alcohol abuse, in remission; E87.6 Hypokalemia; E78.00 Pure hypercholesterolemia, unspecified; I25.10 Atherosclerotic heart disease of native coronary artery without angina pectoris; Z87.891 Personal history of nicotine dependence; Z95.5 Presence of coronary angioplasty implant and graft; Z79.899 Other long term (current) drug therapy; Z79.890 Hormone replacement therapy
CPT/HCPCS: 36415; 36430; 36592; 71046; 80048; 80053; 80202; 81001; 83605; 83735; 85025; 85027; 85384; 85610; 85730; 86644; 86850; 86900; 86901; 86920; 86965; 87040; 87077; 87086; 87088; 87186; 87428; 87506; 87633; 93005; 97802; 99284; J7030; J7040; J7050; P9035; P9040; A4216; J2405; J3490

== ENCOUNTER 2023-07-16 08:48 | Outpatient (CLI) | payer MEDICARE, OTHER, SELFPAY ==
[2023-07-16 09:04] VITALS: BP 97/48; PULSE 64; RESP 18; TEMP 37.1; O2SAT 99; BMI 18.5
[2023-07-16] MEDS: 0.9% Normal Saline (500mL Bag) 500 ML 15 ML IV (09:11)
[2023-07-16] MEDS: 0.9% NaCl VAD Flush IV ×3 (09:11→12:07)
[2023-07-16 10:09] VITALS: BP 108/56; PULSE 56; RESP 16; TEMP 36.6; O2SAT 97
[2023-07-16 10:41] VITALS: BP 87/52; PULSE 57; RESP 16; TEMP 37.1; O2SAT 98
[2023-07-16 10:58] VITALS: BP 110/52; PULSE 57; RESP 16; TEMP 36.8; O2SAT 98
[2023-07-16 12:28] LABS: Hematocrit 25.2 % (40-54); Hemoglobin 8.5 g/dL (13.0-16.5); Mean Corp Hgb Conc 33.7 g/dL (32-36); Mean Corpuscular Hgb 28.2 pg (27.0-32.0); Mean Corpuscular Volume 83.7 fL (80-94); POSITIVE COUNT YES; POSITIVE DIFFERENTIAL YES; POSITIVE MORPHOLOGY YES; Platelet Count 32 K/mm3 (150-450); RBC Distribution Width CV 13.2 % (11.6-14.6); RBC Distribution Width SD 39.8 fl (35.1-43.9); Red Blood Count 3.01 M/mm3 (4.6-6.2); White Blood Count 0.3 K/mm3 (4.4-11.0)
[2023-07-16 12:30] LABS: Scan Indicated on CBC? Y/N YES- FLAGS NOTED
[2023-07-19 12:56] LABS: Pathologist Review Reviewed
== END 2023-07-16 08:49 | disposition home or self-care (01) ==
LOC: MEDOUTP 08:48
PROVIDERS: Referring Provider Internal Medicine Hematology & Oncology; Visit Provider Internal Medicine Hematology & Oncology
DX: C92.00 Acute myeloblastic leukemia, not having achieved remission (principal); D61.810 Antineoplastic chemotherapy induced pancytopenia
CPT/HCPCS: 36430; 36592; 85027; 86900; 86901; 86965; J7040; P9035; A4216

== ENCOUNTER 2023-07-19 15:03 | Emergency (ER) | payer MEDICARE, OTHER, SELFPAY ==
[2023-07-19 15:04] VITALS: BP 119/65; PULSE 64; RESP 17; TEMP 37.2; O2SAT 100; BMI 18.2
--- NOTE | 2023-07-19 16:36 | US_ITS ---
EXAM: US ABDOMEN LIMITED, RIGHT UPPER QUADRANT CLINICAL INDICATION: elevated LFTs TECHNIQUE: Real-time ultrasound of the right upper quadrant with image documentation. COMPARISON: No relevant prior studies available. FINDINGS: LIVER: The liver measures 15.2 cm. There is normal echotexture. No intrahepatic biliary ductal dilation. GALLBLADDER: Gallbladder wall measures 2 mm. No shadowing gallstone. No pericholecystic fluid. Negative sonographic Butler''s sign. COMMON BILE DUCT: Common bile duct measures 4 mm. There is a linear echogenic structure within the liver possibly representing pneumobilia. The proximal common bile duct is within normal limits for the patient''s age. PANCREAS: Unremarkable as visualized. No focal abnormality is demonstrated in the pancreas. No pancreatic ductal dilatation. RIGHT KIDNEY: The right kidney measures 12.6 x 5.3 x 6.9 cm. There is a 3 mm calyceal stone in the right kidney. There is no hydronephrosis. No focal lesion or perinephric collection is demonstrated. US/Liver IMPRESSION: Linear echogenic focus within the right liver possibly representing pneumobilia. If indicated further evaluation with CT scan of the abdomen and pelvis may be beneficial. Electronically Signed: Sanchez Watters MD at 19:55 EDT ,
--- NOTE | 2023-07-19 16:50 | EDS_ITS ---
HPI History of Present Illness Chief Complaint: General Illness Informant: patient Narrative Narrative: Patient presents at the urging of his oncology office. He has a history of AML and was seen in the office today. Patient states that he is not been able to ea t or sleep in the last 3 weeks. He is drinking water. He states he did have lab work done at the office today but then received a call after returning home to go to the emergency room. He states he is urinating normally. His last bowel movement was last evening. He denies having a fever. Patient was here at the hospital July 05 through the at which point he was transferred to [facility] for neutropenic fever. He states he was in the hospital for a total of 6 days. He states he was not really eating much at the hospital but was discharged anyway. [facility] Medical History (Updated 07/19/23 @ 21:[address] Luanne Guerrero MD) AML (acute myeloid leukemia) Anemia Anxiety and depression Bilateral shoulder pain Cervical myofascial strain Cervical radiculopathy Chest pain Coronary artery disease Depression Dysphagia Encounter for screening for malignant neoplasm of lung in former smoker who quit in past 15 years with 30 pack year history or greater Former smoker GERD (gastroesophageal reflux disease) History of alcohol abuse History of heart attack History of tobacco use HLD (hyperlipidemia) HTN (hypertension) Hypercholesterolemia Hypothyroidism Myocardial infarct Home Medications levothyroxine 100 mcg tablet 100 mcg PO DAILY Hypothyroidism 02/12/23 [History Last Taken Unknown] lisinopril 5 mg tablet 5 mg PO DAILY HTN 02/12/23 [History Last Taken Unknown] metoprolol succinate 25 mg tablet,extended release 24 hr 25 mg PO DAILY HTN 02/12/23 [History Last Taken Unknown] omeprazole 20 mg capsule,delayed release 20 mg PO DAILY GERD 02/12/23 [History Last Taken Unknown] paroxetine HCl 20 mg tablet 20 mg PO DAILY Anxiety/depression 02/12/23 [History Last Taken Unknown] simvastatin 40 mg tablet 40 mg PO DAILY HLD 02/12/23 [History Last Taken Unknown] acyclovir 400 mg tablet 400 mg PO Q12H cancer 07/05/23 [History Last Taken Unknown] allopurinol 300 mg tablet 300 mg PO DAILY CA 07/05/23 [History Last Taken Unknown] ondansetron HCl 8 mg tablet 8 mg PO TID PRN nausea 07/05/23 [History Last Taken Unknown] posaconazole 100 mg tablet,delayed release 300 mg PO DAILY cancer 07/05/23 [History Last Taken Unknown] tamsulosin 0.4 mg capsule 0.4 mg PO DAILY urination 07/05/23 [History Last Taken Unknown] Allergy/AdvReac Type Severity Reaction Status Date / Time clopidogrel bisulfate AdvReac Severe Itching Verified 07/19/23 15:08 [From Plavix] Family History Father Diabetes CAD (coronary artery disease) Heart disease Hypertension Dementia Parkinson disease Mother CAD (coronary artery disease) Heart disease Hypertension Thyroid disorder CVA (cerebral vascular accident) Dementia Mother CAD (coronary artery disease) Heart disease Hypertension Father CAD (coronary artery disease) Heart disease Hypertension Surgical History H/O colonoscopy H/O esophagogastroduodenoscopy History of coronary artery stent placement History of inguinal hernia repair History of left inguinal hernia repair Hx of CABG Social History household members: none Smoking Status: Former smoker quit date: 10/31/08 pack-years: 40 Tobacco: How many years used: 40 Electronic Cigarette Use: not used how long ago did patient quit smoking: Quit 2007, smoked 1 ppd since teen. second hand exposure: Yes quit status: quit date established counseling given: provider counseling alcohol intake: former details: Former EtOH abuse, sober since ~ 2007. substance use type: marijuana ROS ROS ED Constitutional Constitutional ED: Denies chills or fever(s) Eyes Eyes: Denies change in vision ENT ENT ED: Denies rhinorrhea or sore throat Cardiovascular Cardiovascular: Denies chest pain or palpitations Respiratory/Chest Respiratory/Chest: Denies cough or dyspnea Gastrointestinal Gastrointestinal: Denies abdominal pain, diarrhea or vomiting Genitourinary Genitourinary ED: Denies dysuria Neurologic Neurologic: Reports weakness Allergic/Immunologic Allergic/Immunologic ED: Denies mouth swelling or tongue swelling EXAM Physical Exam Const Vital Signs: 07/19/23 15:04 07/19/23 16:09 07/19/23 17:00 Temperature 99.0 F Temperature Source Oral Pulse Rate 64 Respiratory Rate 17 18 Respiratory Effort Normal Non-Labored Respiratory Pattern Normal Blood Pressure 119/65 Blood Pressure Mean 83 Pulse Ox 100 Oxygen Delivery Method Room Air 07/19/23 18:00 Temperature Temperature Source Pulse Rate Respiratory Rate 18 Respiratory Effort Respiratory Pattern Blood Pressure Blood Pressure Mean Pulse Ox Oxygen Delivery Method Positive well nourished and well developed General Appearance ED: well developed HEENT Reports dry mucous membranes Mouth ED: Yes dry mucous membranes Mouth: dry mucous membranes Eyes EOMs intact bilaterally Chest Wall inspection of chest normal and palpation of chest normal Resp normal respiratory effort and clear to auscultation bilaterally Cardio regular rate and regular rhythm GI GI Narrative: Abdomen soft with no focal tenderness. Extremity normal to inspection Neuro Neuro Narrative: No focal neurologic deficits. Patient alert answers questions appropriately. Psych mental status grossly normal MDM MDM MDM Narrative Medical decision making narrative: Labs were faxed from the office from today's visit. Patient's white count is 0.23, hemoglobin 8.4, hematocrit 24.1, platelet count 6000. Patient's sodium is 127, potassium 3.3, BUN/creatinine is 9/0.52. Bicarb is 25. Glucose is 133. Alk phos is elevated at 215, AST is 172, and ALT is 269. I spoke with Dr. Ascencio on the phone. He states he primarily sent the patient over because of his LFTs which are continuing to rise. He states that when labs were obtained last Wednesday they were noted to be high. They called the patient to have him hold some of his medication that they were concerned may be causing this, however patient stated that he had not been on that medication. When labs were repeated today they were even higher so this is what prompted his ER visit. He asked that the patient have a hepatitis panel sent and an ultrasound of the liver. Lab Data Labs: Laboratory Results - last 24 hr 07/19/23 13:27 Blood Type Cancelled Radiography Diagnostic Testing: Clinical Impression(s) from Imaging Studies Liver Ultrasound 07/19/23 16:36 IMPRESSION: Linear echogenic focus within the right liver possibly representing pneumobilia. If indicated further evaluation with CT scan of the abdomen and pelvis may be beneficial. Electronically Signed: Sanchez Watters MD at 19:55 EDT , Abdomen/Pelvis CT 07/19/23 20:12 IMPRESSION: 1. Mild striated enhancement within both kidneys which may represent pyelonephritis. 2. Linear calcification in the right lobe liver which corresponds to the finding on ultrasound. There is no pneumobilia. 3. Left testicle appears to be undescended within the left inguinal canal. Electronically Signed: Sanchez Watters MD at 21:07 EDT , Treatment and Re-Evaluation :: Ultrasound of the liver returns with linear echogenic focus in the right liver possibly representing pneumobilia. Recommend CT scan. CT scan with IV contrast obtained. Linear calcification in the right lobe of the liver is noted which corresponds to the finding on ultrasound. There is no pneumobilia. Mild striated enhancement of both kidneys are noted. Left testicle appears undescended. On repeat evaluation patient is resting. He would prefer to go home if at all possible. He has no tenderness in the right upper quadrant. I spoke Dr. Ascencio again. He is okay with the patient going home. He is set up to have outpatient platelet transfusion tomorrow and then is to see his leukemia doctor at [facility] on Wednesday. Return instructions are given. Discharge Plan Triage Chief Complaint: General Illness ED Provider: Luanne Guerrero Dx/Rx/DC Orders Clinical Impression: Transaminitis, Thrombocytopenia Instructions: Tests for Liver Disease, Thrombocytopenia Prescriptions: No Action simvastatin 40 mg tablet 40 mg PO DAILY levothyroxine 100 mcg tablet 100 mcg PO DAILY paroxetine HCl 20 mg tablet 20 mg PO DAILY omeprazole 20 mg capsule,delayed release(DR/EC) 20 mg PO DAILY lisinopril 5 mg tablet 5 mg PO DAILY metoprolol succinate 25 mg tablet extended release 24 hr 25 mg PO DAILY acyclovir 400 mg tablet 400 mg PO Q12H Patient Comments: take 1 tablet by mouth twice a day allopurinol 300 mg tablet 300 mg PO DAILY Patient Comments: take 1 tablet by mouth once daily posaconazole 100 mg tablet,delayed release (DR/EC) 300 mg PO DAILY Patient Comments: take 3 tablets by mouth once daily ondansetron HCl 8 mg tablet 8 mg PO TID PRN Patient Comments: take 1 tablet by mouth every 8 hours if needed for nausea / vomiting tamsulosin 0.4 mg capsule 0.4 mg PO DAILY Patient Comments: take 1 capsule by mouth once daily AT THE SAME TIME EACH DAY Primary Care Provider: Samia Hardy Referrals: Samia Hardy, RETAIL PHARMACY TECHNICIAN-C [Primary Care Provider] - Activity Restrictions/Additional Instructions: Follow-up tomorrow for your platelet transfusion as planned. Disposition Disposition: Home, Self Care
[2023-07-19 17:00] VITALS: RESP 18
[2023-07-19] MEDS: 0.9% Normal Saline (1000mL) 1,000 ML 150 ML IV (17:05)
[2023-07-19 18:00] VITALS: RESP 18
--- NOTE | 2023-07-19 20:12 | CT_ITS ---
EXAM: CT ABDOMEN AND PELVIS WITH INTRAVENOUS CONTRAST CLINICAL INDICATION: abd pain, ? pneumobilia on liver US TECHNIQUE: Helically acquired images were obtained of the abdomen and pelvis with intravenous contrast. This CT exam was performed using one or more of the following dose reduction techniques: automated exposure control, adjustment of the mA and/or kV according to patient size, and/or use of iterative reconstruction technique. CONTRAST: IV 100mL [id number]-370 COMPARISON: No relevant prior studies available. FINDINGS: LOWER THORAX: Unremarkable. Lung bases are clear. No cardiomegaly. No significant pericardial effusion. ABDOMEN: LIVER: There is a linear calcification seen within the right lobe of the liver which corresponds to the echogenic focus on ultrasound. There is no evidence of biliary. GALLBLADDER AND BILE DUCTS: See above. PANCREAS: Unremarkable. No focal cystic or solid mass. SPLEEN: Unremarkable. Normal size without focal cystic or solid mass. ADRENALS: Unremarkable. No nodules. KIDNEYS AND URETERS: There is striated enhancement in the lower pole of both kidneys which may represent pyelonephritis. No hydronephrosis. STOMACH AND BOWEL: Unremarkable. No stomach or bowel distention. No focal inflammatory change. PELVIS: APPENDIX: No evidence of acute appendicitis. BLADDER: Unremarkable. REPRODUCTIVE: Left testicle appears to be elevated within the inguinal canal. ABDOMEN and PELVIS: INTRAPERITONEAL SPACE: Unremarkable. No ascites or other fluid collection. No free air. BONES/JOINTS: Unremarkable. No suspicious lytic or blastic abnormality. SOFT TISSUES: Unremarkable. No discrete abdominal or pelvic wall hernia. VASCULATURE: Unremarkable. Abdominal aorta is non-dilated. LYMPH NODES: Unremarkable. No enlarged lymph nodes. CT/Abdomen/Pelvis W IV Cont ONLY IMPRESSION: 1. Mild striated enhancement within both kidneys which may represent pyelonephritis. 2. Linear calcification in the right lobe liver which corresponds to the finding on ultrasound. There is no pneumobilia. 3. Left testicle appears to be undescended within the left inguinal canal. Electronically Signed: Sanchez Watters MD at 21:07 EDT ,
[2023-07-19 21:37] VITALS: BP 125/56; PULSE 69; RESP 16; O2SAT 97; O2SAT 98
[2023-07-21 05:07] LABS: HEPATITIS B SURFACE AG Negative (Negative); Hep C Antibodies Non Reactive (Non Reactive); Hepatitis A IgM Antibody Negative (Negative); Hepatitis B Core AB IgM Negative (Negative)
== END 2023-07-19 21:45 | disposition home or self-care (01) ==
PROVIDERS: Emergency Provider Emergency Medicine; PCP Nurse Practitioner Family; Visit Provider Emergency Medicine
DX: R74.01 Elevation of levels of liver transaminase levels (principal); D69.6 Thrombocytopenia, unspecified; I25.10 Atherosclerotic heart disease of native coronary artery without angina pectoris; F12.90 Cannabis use, unspecified, uncomplicated; Z87.891 Personal history of nicotine dependence; Z95.5 Presence of coronary angioplasty implant and graft; Z95.1 Presence of aortocoronary bypass graft
CPT/HCPCS: 74177; 76705; 80074; 86900; 86901; 96360; 96361; 99282; J7030; Q9967; A4216

== ENCOUNTER 2023-07-20 13:13 | Outpatient (CLI) | payer MEDICARE, OTHER, SELFPAY ==
[2023-07-20] MEDS: 0.9% NaCl VAD Flush IV ×2 (13:33→15:18)
[2023-07-20] MEDS: 0.9% Normal Saline (500mL Bag) 500 ML 15 ML IV (13:34)
[2023-07-20 13:38] VITALS: BP 97/61; PULSE 63; RESP 16; TEMP 36.5; O2SAT 99; BMI 17.9
[2023-07-20 14:08] VITALS: BP 101/56; PULSE 59; RESP 16; TEMP 37.1
[2023-07-20 14:30] VITALS: BP 120/60; PULSE 60; RESP 16; TEMP 36.9
[2023-07-20 14:54] VITALS: BP 124/68; PULSE 58; RESP 16; TEMP 37.2
== END 2023-07-20 13:14 | disposition home or self-care (01) ==
LOC: MEDOUTP 13:13
PROVIDERS: Referring Provider Internal Medicine Hematology & Oncology; Visit Provider Internal Medicine Hematology & Oncology
DX: C92.00 Acute myeloblastic leukemia, not having achieved remission (principal); D61.810 Antineoplastic chemotherapy induced pancytopenia
CPT/HCPCS: 36430; 86900; 86901; 86965; J7040; P9035; A4216

== ENCOUNTER 2023-08-15 07:54 | Emergency (ER) | payer MEDICARE, OTHER, SELFPAY ==
[2023-08-15 07:55] VITALS: BP 81/44; PULSE 67; RESP 21; TEMP 36.4; BMI 17.6
[2023-08-15 08:05] VITALS: BP 68/43
--- NOTE | 2023-08-15 08:06 | EDS_ITS ---
HPI History of Present Illness Chief Complaint: Seizure Narrative Narrative: 68-year-old male presents via EMS with multiple seizures this morning since around 1 AM. He has received multiple doses of Ativan, last seizure was approximately an hour ago. He does not have medical history of seizures, however of note, patient is on hospice for his history of AML. Was reported that the hospice nurse sent him in to see if he would be put on seizure meds. [facility] Medical History AML (acute myeloid leukemia) Anemia Anxiety and depression Bilateral shoulder pain Cervical myofascial strain Cervical radiculopathy Chest pain Coronary artery disease Depression Dysphagia Encounter for screening for malignant neoplasm of lung in former smoker who quit in past 15 years with 30 pack year history or greater Former smoker GERD (gastroesophageal reflux disease) History of alcohol abuse History of heart attack History of tobacco use HLD (hyperlipidemia) HTN (hypertension) Hypercholesterolemia Hypothyroidism Myocardial infarct Home Medications levothyroxine 100 mcg tablet 100 mcg PO DAILY Hypothyroidism 02/12/23 [History Last Taken Unknown] lisinopril 5 mg tablet 5 mg PO DAILY HTN 02/12/23 [History Last Taken Unknown] metoprolol succinate 25 mg tablet,extended release 24 hr 25 mg PO DAILY HTN 02/12/23 [History Last Taken Unknown] omeprazole 20 mg capsule,delayed release 20 mg PO DAILY GERD 02/12/23 [History Last Taken Unknown] paroxetine HCl 20 mg tablet 20 mg PO DAILY Anxiety/depression 02/12/23 [History Last Taken Unknown] simvastatin 40 mg tablet 40 mg PO DAILY HLD 02/12/23 [History Last Taken Unknown] acyclovir 400 mg tablet 400 mg PO Q12H cancer 07/05/23 [History Last Taken Unknown] allopurinol 300 mg tablet 300 mg PO DAILY CA 07/05/23 [History Last Taken Unknown] ondansetron HCl 8 mg tablet 8 mg PO TID PRN nausea 07/05/23 [History Last Taken Unknown] posaconazole 100 mg tablet,delayed release 300 mg PO DAILY cancer 07/05/23 [History Last Taken Unknown] tamsulosin 0.4 mg capsule 0.4 mg PO DAILY urination 07/05/23 [History Last Taken Unknown] Allergy/AdvReac Type Severity Reaction Status Date / Time clopidogrel bisulfate AdvReac Severe Itching Verified 08/15/23 07:55 [From Plavix] Family History Father Diabetes CAD (coronary artery disease) Heart disease Hypertension Dementia Parkinson disease Mother CAD (coronary artery disease) Heart disease Hypertension Thyroid disorder CVA (cerebral vascular accident) Dementia Mother CAD (coronary artery disease) Heart disease Hypertension Father CAD (coronary artery disease) Heart disease Hypertension Surgical History H/O colonoscopy H/O esophagogastroduodenoscopy History of coronary artery stent placement History of inguinal hernia repair History of left inguinal hernia repair Hx of CABG Social History household members: none Smoking Status: Former smoker quit date: 10/31/08 pack-years: 40 Tobacco: How many years used: 40 Electronic Cigarette Use: not used how long ago did patient quit smoking: Quit 2007, smoked 1 ppd since teen. second hand exposure: Yes quit status: quit date established counseling given: provider counseling alcohol intake: former details: Former EtOH abuse, sober since ~ 2007. substance use type: marijuana ROS ROS ED ROS Narrative Limited secondary to patient condition. Constitutional: No fever, no chills. HEENT: No sore throat. No neck pain. No loss of vision. No rhinorrhea. Cardiovascular: No chest pain. No palpitations. No pedal edema. Respiratory: No cough, no shortness of breath. Abdominal: No abdominal pain. No nausea. No vomiting. Genitourinary: No dysuria. No hematuria. Musculoskeletal: No myalgias. No arthralgias. Neurologic: No headaches. No dizziness. No lightheadedness. Reported muscle spasming. Skin: No rash. No change in color. Psychiatric: No depression. No anxiety. EXAM Physical Exam Narrative Exam Narrative: Afebrile. Vital signs noted. Cachectic. HEENT: Normocephalic. Atraumatic. PERRL, EOMI. Neck soft and supple. No point tenderness or step off. Cardiovascular: Positive bradycardia. No murmurs, rubs, or gallops appreciated. Respiratory: Mild tachypnea. Lungs clear to auscultation bilaterally. Gastrointestinal: Abdomen soft, nontender, with normoactive bowel sounds. No rebound or guarding. Neurological: Awake. Alert. Nonfocal, nonlateralizing. Skin: No rash. Normal color. No pallor. Musculoskeletal: No pedal edema. Full range of motion extremities. Const Vital Signs: 08/15/23 07:55 08/15/23 08:05 08/15/23 10:00 Temperature 97.6 F L Temperature Source Oral Pulse Rate 67 Respiratory Rate 21 H 18 Blood Pressure 81/44 L 68/43 L Blood Pressure Mean 56 51 Oxygen Delivery Method Nasal Cannula Oxygen Flow Rate (L/min) 2 MDM MDM MDM Narrative Medical decision making narrative: I discussed the patient with his son who is his DURABLE POWER OF ANDROID FRAMEWORK DEVELOPER. His name is Denzel. He agrees with making the patient DO NOT RESUSCITATE Comfort Care only, and being transferred to inpatient hospice. I was called to the room prior to transfer where the patient was having more involuntary muscle spasming more so than seizure activity. There was no postictal state afterwards and no loss of bowel or bladder. I do feel that this is probably more involuntary muscle contraction. As his son states that he agrees with transfer to inpatient hospice, I feel he can be transferred for further comfort care measures. Disposition is transferred to inpatient hospice unit. Patient is in stable but guarded condition. Management Discussion w/another healthcare provider: Handle Attacher (Hospice) Discharge Plan Triage Chief Complaint: Seizure ED Provider: Emile Paul Dx/Rx/DC Orders Clinical Impression: DNR (do not resuscitate) discussion, AML (acute myeloblastic leukemia), Hospice care, Involuntary muscle contractions Instructions: What Is Palliative Care Prescriptions: No Action simvastatin 40 mg tablet 40 mg PO DAILY levothyroxine 100 mcg tablet 100 mcg PO DAILY paroxetine HCl 20 mg tablet 20 mg PO DAILY omeprazole 20 mg capsule,delayed release(DR/EC) 20 mg PO DAILY lisinopril 5 mg tablet 5 mg PO DAILY metoprolol succinate 25 mg tablet extended release 24 hr 25 mg PO DAILY acyclovir 400 mg tablet 400 mg PO Q12H Patient Comments: take 1 tablet by mouth twice a day allopurinol 300 mg tablet 300 mg PO DAILY Patient Comments: take 1 tablet by mouth once daily posaconazole 100 mg tablet,delayed release (DR/EC) 300 mg PO DAILY Patient Comments: take 3 tablets by mouth once daily ondansetron HCl 8 mg tablet 8 mg PO TID PRN Patient Comments: take 1 tablet by mouth every 8 hours if needed for nausea / vomiting tamsulosin 0.4 mg capsule 0.4 mg PO DAILY Patient Comments: take 1 capsule by mouth once daily AT THE SAME TIME EACH DAY Primary Care Provider: Samia Hardy Referrals: Samia Hardy, SANDWICH AND DRINK CART OPERATOR-C [Primary Care Provider] - Disposition Disposition: Hospice in Medical Facility Discharge Location: [facility] Discharge Date/Time: 08/15/23 11:35
[2023-08-15 10:00] VITALS: RESP 18
--- NOTE | 2023-08-15 10:11 | ED.RN ---
hospice nurse at bedside. pt had episode of involuntary eye movements and stiffening of the body. pt had no postictal phase after and was able to respond verbally after episode
--- NOTE | 2023-08-15 10:40 | ED.RN ---
pt's son Chase called in and updated on pt's condition and that hospice was at the bedside. son to be called when this rn gets update from Hospice on transport time. Denzel: [phone]
--- NOTE | 2023-08-15 10:51 | ED.RN ---
[facility]ospice [facility] called and report given at this time. [facility] nurses station: [phone]
== END 2023-08-15 11:35 | disposition hospice, inpatient (51) ==
PROVIDERS: Emergency Provider Emergency Medicine; PCP Nurse Practitioner Family; Visit Provider Emergency Medicine
DX: C92.00 Acute myeloblastic leukemia, not having achieved remission (principal); I10 Essential (primary) hypertension; I25.10 Atherosclerotic heart disease of native coronary artery without angina pectoris; Z87.891 Personal history of nicotine dependence; Z51.5 Encounter for palliative care; E78.00 Pure hypercholesterolemia, unspecified; Z66 Do not resuscitate; M62.40 Contracture of muscle, unspecified site
CPT/HCPCS: 99284